=== PATIENT | male | born 1950 | race African-American/Black ===

== ENCOUNTER 2018-06-10 05:01 | Inpatient (IN) | payer MEDICARE ==
[~2018-06-10] VITALS: Ht 177.8 cm; Wt 73.7 kg
--- NOTE | ~2018-06-10 | OP ---
PATIENT NAME: JAEL CHEN MEDICAL RECORD: [id number] :46 LOCATION:D.M2 D.2103 ADMISSION DATE:06/10/18 SURGEON: JOON ASENCIO MD DATE OF OPERATION: 06/13/2018 PROCEDURES: 1. PTCA stent vein graft to the left circumflex. 2. Left heart catheterization. 3. Selective coronary angiography. 4. Vein graft angiography. 5. VARGAS angiography. INDICATION: Angina and coronary artery disease. PROCEDURE IN DETAIL: After informed consent was obtained and after a detailed description of the risks, benefits as well as alternative therapies, the patient elected to proceed with angiogram and angioplasty. The right femoral area was prepped and draped in normal sterile fashion. The right femoral artery was cannulated via modified Seldinger technique with placement of 6-Icelandic sheath. All catheters exchanged through this sheath. FINDINGS: The left ventriculogram was performed in standard 30-degree KOTHARI view, reveals good cardiac wall motion throughout all segments. Overall ejection fraction estimated 60%. SELECTIVE CORONARY ANGIOGRAPHY: 1. Left main is 98% stenosed distally. 2. The left anterior descending has a diagonal that is nongrafted as well. There is a ramus intermedius that is nongrafted. These are both affected by the left main stenosis. Left anterior descending is then totally occluded. 3. VARGAS to the LAD is widely patent. Distal LAD is diffusely diseased, but patent. 4. There is a vein graft to one obtuse marginal. This is patent; however, there is 99% stenosis in the mid shaft. 5. The right coronary artery has a 99% stenosis in the mid vessel followed by a 99% stenosis in the distal vessel. 6. Vein graft to the right coronary artery is closed. PTCA STENT OF THE VEIN GRAFT TO CIRCUMFLEX: The stent used was 3.5 x 12 mm [place]. Result was 0% residual stenosis. OVERALL IMPRESSION: Successful percutaneous transluminal coronary angioplasty stent of the vein graft to the circumflex. PLAN: PTCA stent of the left main and RCA in the near future. TRANSINT:[id number] Voice Confirmation ID: [id number] DOCUMENT ID: [id number] OPERATIVE REPORT [id number] JAEL CHEN JOON ASENCIO MD at 1713 CC: [id number] DICTATION DATE: 06/13/18 1021 HUMAN RESOURCES INTERN: 06/13/18 1156 ADM IN [facility] [address] [place] [id number]
--- NOTE | ~2018-06-10 | OP ---
PATIENT NAME: JAEL CHEN MEDICAL RECORD: [id number] :46 LOCATION:D.M2 D.2103 ADMISSION DATE:06/10/18 SURGEON: JOON ASENCIO MD DATE OF OPERATION: 06/14/2018 PROCEDURES: 1. PTCA stent to left main. 2. Selective coronary angiography. INDICATION: Angina and coronary artery disease. PROCEDURE IN DETAIL: After informed consent was obtained and after a detailed description of risks, benefits as well as alternative therapies, the patient elected to proceed with angiogram and angioplasty. The left femoral area was prepped and draped in normal sterile fashion. Left femoral artery was cannulated via modified Seldinger technique with placement of 6-Barbadian sheath. All catheters exchanged through this sheath. FINDINGS: The left main is 99% stenosed. This leads into a non-grafted circumflex and LAD diagonal. This was addressed with a 3.5 x 8 mm Dumont Imelda stent. Result was 0% residual stenosis. OVERALL IMPRESSION: Successful percutaneous transluminal coronary angioplasty stent of the left main going from 95% to 99% initial stenosis to 0% residual. TRANSINT:[id number] Voice Confirmation ID: [id number] DOCUMENT ID: [id number] JOON ASENCIO MD at 1208 CC: [id number] DICTATION DATE: 06/14/18940 HUB BORER: 06/14/18 1200 DIS IN 06/14/[address] [facility] [address] [place] [address]
--- NOTE | ~2018-06-10 | HEMODYNAMI ---
PATIENT:JAEL CHEN MEDICAL RECORD: [id number] : 46 LOCATION:[address] ADMISSION DATE: 06/10/18 Generatedon:06/14/20189:35 Patient name: JAEL CHEN Patient #: [id number] SSN: : 1950 Date of study: 06/14/2018 Page: Of Hemodynamic Procedure Report Patient Data Patient Demographics Procedure consent was obtained First Name: JAEL Gender: Male Last Name: APRIL : 1950 Patient #: [id number] Age: 67 year(s) Race: Black Additional ID: [id number] Contact details [address]: [address] [place] [address] [address] State: [place] City: [place] Zip code: [address] Past Medical History Allergies: No known allergies Admission Admission Data Admission Date: 06/10/2018 Admission Time: 6:40 Room #: 2103 Lab Results Lab Result Date: 06/14/2018 Lab Result Time: 0:00 Biochemistry Name Units Result Min Max BUN mg/dl 59 --(----)-* 7 18 Creatinine mg/dl 9.5 --(----)-* 0.6 1.3 Procedure Procedure Types Cath Procedure Diagnostic Procedure Sedation Charges PCI Procedure Coronary Stent Coronary Stent Initial Procedure Description Procedure Date Procedure Date: 06/14/2018 Procedure Start Time: 9:20 Procedure End Time: 9:33 Procedure Staff Name Function Feroz Chapman MD Performing Physician Vipul Gross RN Nurse Scarlett Day RT Scrub Ann Marie Brock RT Monitor Procedure Data Cath Procedure Fluoroscopy Diagnostic fluoroscopy Total fluoroscopy Time: 2.5 time: 2.5 min min Diagnostic fluoroscopy Total fluoroscopy dose: 489 dose: 489 mGy mGy Contrast Material Contrast Material Type Amount (ml) Isovue 300 51 Entry Location Entry Primary Successful Side Size Upsize Upsize Entry Closure Succes sful Closure Location (Fr) 1 (Fr) 2 (Fr) Remarks Device Remarks Femoral Left 6 Fr Exoseal artery Short Estimated blood loss: 5 ml Procedure Complications No complications Procedure Medications Medication Administration Route Dosage Oxygen etCO2 Nasal cannula 2 l/min Heparin Flush Bag added to field 2 bags (1000units/500ml NS) 0.9% NaCl I.V. 100 ml/hr Fentanyl I.V. 50 mcg Versed I.V. 1 mg Heparin Bolus I.V. 4000 units Fentanyl I.V. 50 mcg Versed I.V. 1 mg Hemodynamics Rest HGB: 11.1 (g/dl) Heart Rate: 84 (bpm) Snapshots Pre Cath Intra NCS Post Cath Vital Signs Time Heart Resp SPO2 etCO2 NIBP Rhythm Pain Sedation Rate (ipm) (%) (mmHg) (mmHg) Status Level (bpm) 8:49:58 85 17 98 20.2 116/71(91) NSR 0 (11) 10(A) , No pain 8:54:03 86 16 100 27 114/70(87) NSR 0 (11) 10(A) , No pain 8:58:09 82 17 100 34.5 103/71(87) NSR 0 (11) 10(A) , No pain 9:02:13 83 16 100 31.5 100/62(76) NSR 0 (11) 10(A) , No pain 9:06:17 81 16 100 32.3 104/62(75) NSR 0 (11) 10(A) , No pain 9:10:22 81 17 100 31.5 100/60(77) NSR 0 (11) 10(A) , No pain 9:14:24 80 17 100 30 100/67(83) NSR 0 (11) 10(A) , No pain 9:18:28 79 17 100 31.5 103/58(85) NSR 0 (11) 10(A) , No pain 9:22:32 76 16 100 27.7 98/63(78) NSR 0 (11) 9(A) , No pain 9:26:35 77 17 100 32.3 113/57(74) NSR 0 (11) 9(A) , No pain 9:30:45 77 16 100 26.2 101/58(75) NSR 0 (11) 9(A) , No pain Medications Time Medication Route Dose Verified Delivered Reason Notes Effectiveness by by 8:50:16 Oxygen etCO2 2 Feroz Matthew Per physician Nasal l/min Adela Gross RN cannula 8:50:41 Heparin Flush added 2 Feroz Matthew used for Bag to bags Adela Gross RN procedure (1000units/500ml field NS) 8:50:50 0.9% NaCl I.V. 100 Feroz Matthew Per physician ml/hr dAela Gross RN 9:19:10 Fentanyl I.V. 50 Feroz Matthew for sedation mcg Adela Gross RN 9:19:17 Versed I.V. 1 mg Feroz Matthew for sedation Adela Gross RN 9:22:13 Heparin Bolus I.V. 4000 Feroz Moyay for units Adela Gross RN anticoagulation 9:23:26 Fentanyl I.V. 50 Feroz Moyay for sedation mcg Adela Gross RN 9:23:29 Versed I.V. 1 mg Feroz Matthew for sedation Adela Gross RN Procedure Log Time Note 8:30:24 Bob Valencia RT(R) (CV) sent for patient. Start room use. 8:48:54 Vital chart was started 8:49:46 PCI Cath Status : Elective 8:50:16 Oxygen 2 l/min etCO2 Nasal cannula was administered by Vipul Gross RN; Per physician; 8:50:16 Procedure type changed to Cath procedure, Diagnostic procedure, Sedation Charges, PCI procedure, Coronary Stent, Coronary Stent Initial 8:50:41 Heparin Flush Bag (1000units/500ml NS) 2 bags added to field was administered by Vipul Gross RN; used for procedure; 8:50:50 0.9% NaCl 100 ml/hr I.V. was administered by Vipul Gross RN; Per physician; 8:51:39 Time tracking: Regular hours (M-F 7:00 - 5:00) 8:51:44 Plan of Care:Hemodynamics will remain stable., Cardiac rhythm will remain stable., Comfort level will be maintained., Respiratory function will remain adequate., Patient/ family verbilizes understanding of procedure., Procedure tolerated without complication., Recovers from procedure without complications.. 8:51:52 Patient received from PCU to [facility] 2 Alert and oriented. Tansferred to table in Supine position. 8:51:54 Warm blankets applied, and maya hugger turned on for patient comfort. 8:51:55 Correct patient and procedure confirmed by team. 8:51:57 Signed procedure consent form obtained from patient. 8:51:58 ECG and BP/O2 sat monitors applied to patient. 8:51:59 Baseline sample Acquired. 8:52:04 Rhythm: sinus rhythm 8:52:05 Full Disclosure recording started 8:52:36 Pre-procedure instructions explained to patient. 8:52:37 Pre-op teaching completed and patient verbalized understanding. 8:52:41 Family unavailable. 8:52:45 Patient NPO since Midnight. 8:52:58 Patient allergic to No known allergies 8:53:02 Is patient on blood thinner?Yes 8:53:14 Patient diabetic? No. 8:53:17 ----Pre-sedation anethsthesia assessment.---- 8:53:19 Previous problem with sedation/anesthesia? No ? 8:53:31 Snore? Yes 8:53:34 Sleep apnea? No 8:53:36 Deviated septum? No 8:53:37 Opens mouth fully? Yes 8:53:38 Sticks out tongue? Yes 8:53:41 Airway obstruction? No ? 8:53:52 Dentures? Yes OUT 8:54:05 Pre procedure: left dorsailis pedis pulse 1+ Palpable, but thready & weak; easily obliterated 8:54:30 IV patent on arrival in Rt subclavian with 0.9% NaCl at [facility]. 8:54:38 Left groin area was prepped with chlora-prep and draped in sterile fashion 8:54:39 Alarms reviewed by R. N. 8:54:40 Sharps counted by scrub and verified by R.N. 8:56:54 Lab Result : Creatinine 9.5 mg/dl 8:56:54 Lab Result : BUN 59 mg/dl 9:00:02 INFLATOR Merit BasixCompak ([id number]) opened to sterile field. 9:00:14 CHOICE PT Extra Support 182cm wire ([id number]) opened to sterile field. 9:00:22 SHEATH Prelude 6Fr 0.035 (AUZ-5I-50-035) opened to sterile field. 9:00:43 ACIST Syringe (98887) opened to sterile field. 9:00:44 Bag Decanter (2002S) opened to sterile field. 9:00:44 Medline Cath Pack ([id number]) opened to sterile field. 9:00:46 DIAGNOSTIC WIRE .035 260cm J wire (330333) opened to sterile field. 9:00:47 ACIST Hand Control (59390) opened to sterile field. 9:00:48 ACIST Manifold (49489) opened to sterile field. 9:00:50 Tegaderm 4 x 4 (1626W) opened to sterile field. 9:06:59 Zero performed for pressure channel P1 9:18:44 Physician arrived 9::44 --------ALL STOP TIME OUT------ ::44 Final Timeout: patient, procedure, and site verified with staff and physician. All members of the team are in agreement. 9:18:48 Right groin site verified by team. 9::52 Physical assessment completed. ASA score P 2 - A patient with mild systemic disease as per Feroz Chapman MD. 9:18:56 Sedation plan: IV Moderate Sedation Medication:Versed, Fentanyl 9:19:00 Procedure started. 9:19:10 Fentanyl 50 mcg I.V. was administered by Vipul Gross RN; for sedation; 9:19:17 Versed 1 mg I.V. was administered by Vipul Gross RN; for sedation; 9:20:43 Local anesthetic to left femerol artery with Lidocaine 2% by Feroz Chapman MD.INITIAL ACCESS ONLY 9:21:00 A 6 Fr Short sheath was inserted into the Left Femoral artery 9:21:40 GUIDE 6FR EBU 3.5 SH catheter ([id number]) opened to sterile field. 9::52 6 Fr EBU 3.5 SH guide catheter was inserted over the wire 9:22:13 Heparin Bolus 4000 units I.V. was administered by Vipul Gross RN; for anticoagulation; 9::52 ER XT J 300cm guide wire ([id number]) opened to sterile field. 9:23:26 Fentanyl 50 mcg I.V. was administered by Vipul Gross RN; for sedation; 9:23:29 Versed 1 mg I.V. was administered by Vipul Gross RN; for sedation; 9:24:11 er wire advanced. 9:24:14 Wire advanced across lesion. 9:25:33 Inflate balloon Inflation number: 1 A EUPHORA 2.0 x 12 Balloon ([id number]) was prepped and advanced across the LMCA, then inflated to 21 KINA for 0:10 (min:sec). 9:25:56 Inflation number: 2 The EUPHORA 2.0 x 12 Balloon ([id number]) was reinflated across the LMCA, to 21 KINA for 0:00 (min:sec). 9:26:17 Balloon removed over the wire. 9:28:11 Place stent Inflation Number: 3 A KENROY RX 3.5 x 08 stent ([id number]) was prepped and advanced across the LMCA. The stent was deployed at 13 KINA for 0:10 (min:sec). 9:28:28 Inflation number: 4 The stent balloon was then re-inflated across the LMCA to 17 KINA for 0:10 (min:sec). 9:28:44 Stent catheter was removed intact over wire. 9:28:44 Wire removed. 9:28:45 Guide catheter removed. 9:29:04 EXOSEAL 6Fr (EX600) opened to sterile field. 9:29:16 Sheath removed intact; hemostasis achieved with Exoseal to the Left Femoral artery. 9:29:17 Procedure ended.(Physican Out) 9:31:23 Fluoroscopy time 02.50 minutes. 9:31:27 Fluoroscopy dose: 489 mGy 9:31:27 Flurop Dose total: 489 9:31:38 Contrast amount:Isovue 300 51ml. 9:31:40 Sharps counted by scrub and verified by R.N. 9:32:07 Insertion/operative site no bleeding no hematoma. 9:32:42 Post-op/insertion site Left Femoral artery dressed using a 4 x 4 and Tegaderm. 9:32:46 Post left femerol artery:stable 9:32:47 Post Procedure Pulses reassessed and unchanged 9:32:50 Post procedure rhythm: unchanged. 9:32:52 Estimated blood loss: 5 ml 9:32:54 Post procedure instruction explained to patient.Patient verbalizes understanding. 9:32:54 Patient needs reinforcement of post procedure teaching. 9:32:55 Procedure and supply charges have been captured, reviewed, submitted and are correct. 9:33:02 Procedure Complication : No complications 9:33:04 Vital chart was stopped 9:33:05 See physician's report for complete and final results. 9:33:14 Report given to [facility]. 9:33:17 Patient transfered to [facility] with Stretcher. 9:33:18 Procedure ended. 9:33:18 Full Disclosure recording stopped 9:33:27 ACC-PCI Only Patient was given prescriptions, or instructed by Feroz Chapman MD to start/continue the following medications upon discharge: Plavix 9:33:28 End room use (Document Last) Intervention Summary Intervention Notes Time ActionType Lesion and Equipment Action# Pressure Duration Attributes Used 9:25:33 Inflate LMCA EUPHORA 2.0 1 21 00:10 balloon x 12 Balloon ([id number]) 9:25:56 Reinflate LMCA EUPHORA 2.0 2 21 00:00 balloon x 12 Balloon ([id number]) 9:28:11 Place stent LMCA KENROY RX 3 13 00:10 3.5 x 08 stent ([id number]) 9:28:28 Reinflate LMCA KENROY RX 4 17 00:10 stent 3.5 x 08 balloon stent ([id number]) Device Usage Item Name Manufacture Quantity Catalog Number Hospital Part Current Minimal Lot# / Charge Number Stock Stock Serial# Code INFLATOR Merit Merit 1 [id number] 15 [facility] Center[facility] Medical ([id number]) CHOICE PT Extra Holt 1 [id number] 233892 536686 740268 5 Support 182cm Scientific wire ([id number]) SHEATH Prelude Merit 1 [id number] 155568 5149297 002428 5 6Fr 0.035 Medical (FDA-1F-[id number]) ACIST Syringe Acist 1 09704 754928 656348 599547 20 (05913) [employer] Systems Inc Bag Decanter Microtek 1 2001S 505611 49715 923212 5 () Medical Inc. Medline Cath Cardinal 1 [id number] 827346 87936 577149 5 [facility] ([id number]) DIAGNOSTIC WIRE St Hema 1 036508 285333 984773 846427 30 .035 260cm J wire (458881) ACIST Hand Acist 1 19711 839610 729720 935812 5 Control (41767) Medical [employer] Inc ACIST Manifold Acist 1 23477 487899 469654 869314 5 (05144) Medical Systems Inc Tegaderm 4 x 4 3M 1 1626W 036072 369517 022133 5 (1626W) GUIDE 6FR EBU Medtronic 1 [id number] 591035 70175 530643 1 3.5 SH catheter ([id number]) FIELDER XT J Dumont 1 [id number] 896922 328881 624860 5 300cm guide Vascular wire ([id number]) EUPHORA 2.0 x Medtronic 1 [id number] 605886 574850 996705 5 [id number] 12 Balloon ([id number]) KENROY RX 3.5 x Dumont 1 [id number] 051812 1420397 288628 5 [id number] 08 stent Vascular ([id number]) EXOSEAL 6Fr Cardinal 1 EX600 215791 849777 074498 10 (EX600) Health Signature Audit [place] Stage Time Signature Unsigned Intra-Procedure 06/14/2018 Ann Marie Brock 9:34:55 AM RT(R) Signatures Monitor : Ann Marie Brock RT Signature : Date : Time : [address] [address]
--- NOTE | ~2018-06-10 | OP ---
PATIENT NAME: JAEL CHEN MEDICAL RECORD: [id number] :46 LOCATION:D.M2 D.2103 ADMISSION DATE:06/10/18 SURGEON: JOON ASENCIO MD DATE OF OPERATION: 06/13/2018 PROCEDURES: 1. Aortofemoral runoff. 2. Abdominal aortography. INDICATION: Claudication and peripheral vascular disease. PROCEDURE PERFORMED: After informed consent was obtained and after a detailed description of risks, benefits as well as alternative therapies, the patient elected to proceed with angiogram and angioplasty. The right femoral area had a preexisting sheath from cardiac catheterization. FINDINGS: Abdominal aortography was performed. The catheter was pulled down for aortofemoral runoff. Abdominal aortography reveals no significant abdominal aortic disease, no dissection or aneurysm formation. RIGHT LEG: A. Iliac: The common internal and external iliacs have moderate irregularities, but no flow-limiting stenosis. B. Femoral system: The common and deep femoral are widely patent. Superficial femoral has multiple areas of 80+ percent stenosis. C. Popliteal and infrapopliteal vessels: The popliteal is patent. The posterior tibial and peroneal are totally occluded. The anterior tibial is the only patent vessel giving runoff to the foot. LEFT LEG: A. Iliac: The common internal and external iliacs have moderate irregularities, but no flow-limiting stenosis. B. Femoral system: The common and deep femoral are patent. Superficial femoral has moderate to severe diffuse disease. It is then occluded at 2 places. One is in the mid distal vessel, approximately 40 mm, second one is after this, just before the popliteal. This is approximately a 20 mm total occlusion. These are heavily calcified, fills via collaterals from the deep system as well as bridging collaterals around the total occlusion. C. Popliteal and infrapopliteal vessels: The popliteal does appear to be patent for the initial course and then appears to be totally occluded behind the knee. No infrapopliteal vessels can be seen. OVERALL IMPRESSION: Severe disease of infrapopliteal bilaterally, severe disease of the SFA bilaterally. TRANSINT:[id number] Voice Confirmation ID: [id number] DOCUMENT ID: [id number] OPERATIVE REPORT [id number] JAEL CHEN JEFFREY MD at 4453 CC: [id number] DICTATION DATE: 06/13/18 1023 SSN/SSBN [employer] EQUIPMENT OPERATOR: 06/13/18 1159 ADM IN [facility] [address] [place] [id number]
--- NOTE | ~2018-06-10 | HEMODYNAMI ---
PATIENT:JAEL CHEN MEDICAL RECORD: [id number] : 46 LOCATION:[address] [id number] ADMISSION DATE: 06/10/18 Generatedon:06/13/201810:27 Patient name: JAEL CHEN Patient #: [id number] SSN: : 1950 Date of study: 06/13/2018 Page: Of Hemodynamic Procedure Report Patient Data Patient Demographics Procedure consent was obtained First Name: JAEL Gender: Male Last Name: APRIL : 1950 Patient #: [id number] Age: 67 year(s) Race: Black Additional ID: [id number] Contact details Address: [address] [place] [address] [address] State: [place] City: [place] Zip code: [address] Past Medical History Allergies: No known allergies Admission Admission Data Admission Date: 06/10/2018 Admission Time: 6:40 Room #: D2103 Lab Results Lab Result Date: 06/10/2018 Lab Result Time: 8:36 Biochemistry Name Units Result Min Max BUN mg/dl 72 --(----)-* 7 18 Creatinine mg/dl 11 --(----)-* 0.6 1.3 CBC Name Units Result Min Max Hematocrit % 34.8 *-(----)-- 42 54 Hemoglobin g/dl 11.1 *-(----)-- 13.5 17.5 Procedure Procedure Types Cath Procedure Diagnostic Procedure LHC LHC w/Coronaries w/Grafts Sedation Charges Moderate Sedation up to 15 minutes PCI Procedure AMI/SVG/JAVA GRAILS DEVELOPER PTCA or Stent SVG-BMS/ANNALEE Additional Peripheral Cath Diagnostic Procedure Cath Peripheral Hzdxu-Yuplnna-Dvl-Off Procedure Description Procedure Date Procedure Date: 06/13/2018 Procedure Start Time: 9:55 Procedure End Time: 10:23 Procedure Staff Name Function Feroz Chapman MD Performing Physician Scarlett Day RT Pigment Mixer Rc Valentin RT Monitor Kayy Sarmiento RN Nurse Scarlett Shay RT Scrub Procedure Data Cath Procedure Fluoroscopy Diagnostic fluoroscopy Total fluoroscopy Time: 7.7 time: 7.7 min min Diagnostic fluoroscopy Total fluoroscopy dose: dose: 1089 mGy 1089 mGy Contrast Material Contrast Material Type Amount (ml) Isovue 300 198 Entry Location Entry Primary Successful Side Size Upsize Upsize Entry Closure Succes sful Closure Location (Fr) 1 (Fr) 2 (Fr) Remarks Device Remarks Femoral Right 5 Fr 6 Fr Exoseal artery Short Estimated blood loss: 10 ml Diagnostic catheters Device Type Used For End Catheter Placement MULTIPACK Pigtail 5 Fr Procedure catheter MULTIPACK JL 4.0 5Fr Procedure catheter DIAGNOSTIC JL 5 5Fr Procedure catheter ([id number]) MULTIPACK 3DRC 5Fr Procedure catheter Procedure Complications No complications Procedure Medications Medication Administration Route Dosage Oxygen etCO2 Nasal cannula 2 l/min Lidocaine 2% added to field 20 Heparin Flush Bag added to field 2 bags (1000units/500ml NS) 0.9% NaCl I.V. 50 ml/hr Versed I.V. 1 mg Fentanyl I.V. 50 mcg Versed I.V. 1 mg Fentanyl I.V. 50 mcg Heparin Bolus I.V. 4000 units Integrilin (Bolus I.V. 6.8 ml 2mg/ml) Fentanyl I.V. 50 mcg Cardene I.C. 300 mcg Plavix P.O. 600 mg Hemodynamics Rest HGB: 11.1 (g/dl) Heart Rate: 87 (bpm) Pressure Samples Time Site Value (mmHg) Purpose Heart Use Rate(bpm) 9:58 LV 78/2,3 Snapshot 101 Snapshots Pre Cath Intra NCS Post Cath Vital Signs Time Heart Resp SPO2 etCO2 NIBP (mmHg) Rhythm Pain Sedation Rate (ipm) (%) (mmHg) Status Level (bpm) 9:49:22 84 19 100 26.3 136/81(109) NSR 0 (11) 10(A) , No pain 9:53:38 82 17 100 24.8 133/68(88) NSR 0 (11) 10(A) , No pain 9:57:52 82 10 99 16.5 118/74(92) NSR 0 (11) 9(A) , No pain 10:01:58 86 14 100 33.1 120/78(98) NSR 0 (11) 9(A) , No pain 10:06:10 86 16 100 30.1 122/64(97) NSR 0 (11) 9(A) , No pain 10:10:13 90 13 100 30.8 141/92(110) NSR 0 (11) 9(A) , No pain 10:14:23 98 14 100 30.8 151/95(122) NSR 0 (11) 9(A) , No pain 10:18:33 97 11 100 27.1 133/85(104) NSR 0 (11) 9(A) , No pain 10:22:43 100 12 100 30.1 145/91(120) NSR 0 (11) 10(A) , No pain Medications Time Medication Route Dose Verified Delivered Reason Notes Effectiveness by by 9:49:34 Oxygen etCO2 2 Feroz Josephie used for Nasal l/min Adela Sarmiento RN procedure cannula 9:49:40 Lidocaine 2% added 20ml Feroz Redman for local to vial Adela Chapman MD anesthetic field 9:49:46 Heparin Flush added 2 Feroz Feroz used for Bag to bags Adela Chapman MD procedure (1000units/500ml field NS) 9:49:55 0.9% NaCl I.V. 50 Feroz Buffie Per physician ml/hr Adela Sarmiento RN 9:54:42 Versed I.V. 1 mg Feroz Josephie for sedation Adela Sarmiento RN 9:54:47 Fentanyl I.V. 50 Feroz Buffie for sedation mcg Adela Sarmiento RN 9:59:32 Versed I.V. 1 mg Feroz Josephie for sedation Adela Sarmiento RN 9:59:36 Fentanyl I.V. 50 Feroz Josephie for sedation mcg Adela Sarmiento RN 10:07:26 Heparin Bolus I.V. 4000 Feroz Josephie for verif ied units Adela Sarmiento RN anticoagulation with dr chapman 10:10:02 Integrilin I.V. 6.8 Feroz Sultana for Waste d (Bolus 2mg/ml) ml Adela Sarmiento RN antiplatelet 3.2 ml therapy of vial 10:14:14 Fentanyl I.V. 50 Feroz Josephie for sedation baldev Sarmiento RN 10:15:18 Cardene I.C. 300 Feroz Redman used for mcg Adela Chapman MD procedure 10:24:22 Plavix P.O. 600 Feroz Sultana for mg Adela Sarmiento RN antiplatelet therapy Procedure Log Time Note 9:26:51 Kayy Sarmiento RN sent for patient. Start room use. 9:41:27 Diagnostic Cath status Elective 9:41:28 Time tracking: Regular hours (M-F 7:00 - 5:00) 9:41:32 Plan of Care:Hemodynamics will remain stable., Cardiac rhythm will remain stable., Comfort level will be maintained., Respiratory function will remain adequate., Patient/ family verbilizes understanding of procedure., Procedure tolerated without complication., Recovers from procedure without complications.. 9:41:38 Patient received from PCU to CCL 2 Alert and oriented. Tansferred to table in Supine position. 9:41:39 Warm blankets applied, and maya hugger turned on for patient comfort. 9:41:39 Correct patient and procedure confirmed by team. 9:41:40 Signed procedure consent form obtained from patient. 9:41:41 ECG and BP/O2 sat monitors applied to patient. 9:41:42 Pre-procedure instructions explained to patient. 9:41:43 Pre-op teaching completed and patient verbalized understanding. 9:41:44 Family unavailable. 9:48:17 Vital chart was started 9:48:18 Baseline sample Acquired. 9:48:21 Rhythm: sinus rhythm 9:48:23 Full Disclosure recording started 9:48:59 H&P Date Dictated: 06/10/2018 Within 30 days and on chart.. 9:49:34 Oxygen 2 l/min etCO2 Nasal cannula was administered by Kayy Sarmiento RN; used for procedure; 9:49:40 Lidocaine 2% 20ml vial added to field was administered by Feroz Chapman MD; for local anesthetic; 9:49:46 Heparin Flush Bag (1000units/500ml NS) 2 bags added to field was administered by Feroz Chapman MD; used for procedure; 9:49:51 Patient allergic to No known allergies 9:49:53 Is the patient allergic to Iodine/contrast media? No. 9:49:54 Is patient on blood thinner?No 9:49:55 0.9% NaCl 50 ml/hr I.V. was administered by Kayy Sarmiento RN; Per physician; 9:50:46 Patient diabetic? No. 9:50:48 Snore? Yes 9:50:50 Previous problem with sedation/anesthesia? No ? 9:50:52 Sleep apnea? No 9:50:52 Deviated septum? No 9:51:01 Opens mouth fully? Yes 9:51:02 Sticks out tongue? Yes 9:51:07 Airway obstruction? No ? 9:51:12 Dentures? No ? 9:51:15 Pre procedure: right dorsailis pedis pulse 2+ Normal; easily identifiable; not easily obliterated 9:51:27 Patient pain scale 2/10 chest pressure. 9:51:32 IV patent on arrival in right antecubital with 0.9% NaCl at [facility]. 9:52:21 Lab Result : BUN 72 mg/dl 9:52:22 Lab Result : Creatinine 11 mg/dl 9:52:22 Lab Result : Hemoglobin 11.1 g/dl 9:52:22 Lab Result : Hematocrit 34.8 % 9:52:25 Lab results completed and on chart. 9:52:28 Right groin area was prepped with chlora-prep and draped in sterile fashion 9:52:28 Alarms reviewed by R. N. 9:52:29 Sharps counted by scrub and verified by R.N. 9:52:31 Use device set Femoral Dx 9:52:32 ACIST Syringe (64230) opened to sterile field. 9:52:32 Bag Decanter (2002S) opened to sterile field. 9:52:32 Medline Cath Pack ([id number]) opened to sterile field. 9:52:34 ACIST Hand Control (12524) opened to sterile field. 9:52:34 ACIST Manifold (16116) opened to sterile field. 9:52:35 Tegaderm 4 x 4 (1626W) opened to sterile field. 9:52:37 SHEATH Prelude 5Fr 0.035 (WFF-3X-13-035) opened to sterile field. 9:52:38 DIAGNOSTIC Multipack 5Fr catheter set (SK1275) opened to sterile field. 9:52:39 DIAGNOSTIC WIRE .035 260cm J wire (453434) opened to sterile field. 9:52:45 Physician arrived 9:52:45 --------ALL STOP TIME OUT------ 9:52:45 Final Timeout: patient, procedure, and site verified with staff and physician. All members of the team are in agreement. 9:52:47 Right groin site verified by team. 9:52:49 Physical assessment completed. ASA score P 3 - A patient with severe systemic disease as per Feroz Chapman MD. 9:52:51 Sedation plan: IV Moderate Sedation Medication:Versed, Fentanyl 9:54:42 Versed 1 mg I.V. was administered by Kayy Sarmiento RN; for sedation; 9:54:47 Fentanyl 50 mcg I.V. was administered by Kayy Sarmiento RN; for sedation; 9:54:50 Zero performed for pressure channel P1 9:54:57 Zero performed for pressure channel P1 9:55:11 Zero performed for pressure channel P1 9:55:34 Procedure started. 9:55:38 Local anesthetic to right femoral artery with Lidocaine 2% by Feroz Chapman MD.INITIAL ACCESS ONLY 9:57:13 A 5 Fr sheath was inserted into the Right Femoral artery 9:57:21 A MULTIPACK Pigtail 5 Fr catheter was advanced over the wire and used for Procedure. 9:58:53 LV gram done using KOTHARI 9:58:56 Injector settings: Ml/sec: 10, Volume: 20, 9:59:02 EF : 60 % 9:59:03 LV hemodynamics recorded. 9:59:32 Versed 1 mg I.V. was administered by Kayy Sarmiento RN; for sedation; 9:59:32 Abdominal angiogram w/ runoff was performed. 9:59:36 Fentanyl 50 mcg I.V. was administered by Kayy Sarmiento RN; for sedation; 9:59:44 Left leg runoff performed. 9:59:45 Right leg runoff performed. 10:00:26 Catheter exchanged over wire. 10:00:32 A MULTIPACK JL 4.0 5Fr catheter was advanced over the wire and used for Procedure. 10:01:12 Catheter removed. unable to cannulate vessel. 10:01:23 A DIAGNOSTIC JL 5 5Fr catheter ([id number]) was advanced over the wire and used for Procedure. 10:03:43 LCA angiography performed. 10:03:46 Catheter exchanged over wire. 10:03:51 A MULTIPACK 3DRC 5Fr catheter was advanced over the wire and used for Procedure. 10:03:54 VARGAS to LAD angiography performed. 10:04:27 RCA angiography performed. 10:05:23 SVG to Circ angiography performed. 10:05:39 GUIDE 6FR AR 2.0 catheter ([id number]) opened to sterile field. 10:05:46 Catheter removed. 10:05:52 SHEATH 6FR [place] (YMC786) opened to sterile field. 10:06:04 CHOICE PT Extra Support 182cm wire ([id number]) opened to sterile field. 10:06:04 INFLATOR Merit BasixCompak (OU9775) opened to sterile field. 10:06:40 Sheath upsized to a 6 Fr Short. 10:06:48 6 Fr AR 2 guide catheter was inserted over the wire 10:07:26 Heparin Bolus 4000 units I.V. was administered by Kayy Sarmiento RN; for anticoagulation; verified with dr chapman 10:10:02 Integrilin (Bolus 2mg/ml) 6.8 ml I.V. was administered by Kayy Sarmiento RN; for antiplatelet therapy; Wasted 3.2 ml of vial 10:10:12 Procedure type changed to Cath procedure, Diagnostic procedure, LHC, LHC w/Coronaries w/Grafts, Sedation Charges, Moderate Sedation up to 15 minutes, PCI procedure, AMI/SVG/JAVA GRAILS DEVELOPER PTCA or Stent, SVG-BMS/ANNALEE Additional, Peripheral Cath Diagnostic Procedure, Cath Peripheral, Uxbus-Ygkzysi-Cwf-Off 10:10:37 GUIDE 6FR AR 1.0 catheter (QU0TU35) opened to sterile field. 10:10:46 Guide Catheter removed. unable to cannulate vessel. 10:10:51 6 Fr AR 1 guide catheter was inserted over the wire 10:11:52 CHOICE PT ES wire advanced. 10:13:59 Wire removed. 10:14:01 Guide Catheter removed. unable to cannulate vessel. 10:14:08 GUIDE 6FR LCB catheter (LA6LCB) opened to sterile field. 10:14:14 Fentanyl 50 mcg I.V. was administered by Kayy Sarmiento RN; for sedation; 10:14:17 6 Fr LCB guide catheter was inserted over the wire 10:14:36 CHOICE PT ES wire advanced. 10:14:58 Wire advanced across lesion. 10:15:18 Cardene 300 mcg I.C. was administered by Feroz Chapman MD; used for procedure; 10:16:20 Place stent Inflation Number: 1 A REGAN RX 3.5 x 12 stent ([id number]) was prepped and advanced across the Aorta Left -> Mid CX. The stent was deployed at 15 KINA for 0:10 (min:sec). 10:18:31 Stent catheter was removed intact over wire. 10:18:32 Wire removed. 10:18:32 Guide catheter removed. 10:18:43 EXOSEAL 6Fr (EX600) opened to sterile field. 10:18:50 Sheath removed intact; hemostasis achieved with Exoseal to the Right Femoral artery. 10:18:52 Procedure ended.(Physican Out) 10:19:01 Fluoroscopy time 07.70 minutes. 10:19:05 Fluoroscopy dose: 1089 mGy 10:19:05 Flurop Dose total: 1089 10:19:15 Contrast amount:Isovue 300 198ml. 10:20:53 Insertion/operative site no bleeding no hematoma. 10:20:56 Post-op/insertion site Right Femoral artery dressed using a 4 x 4 and Tegaderm. 10:20:59 Post right femoral artery:stable, soft, clean and dry 10:21:00 Post Procedure Pulses reassessed and unchanged 10:21:04 Post-procedure physical assessment completed. ASA score P 3 - A patient with severe systemic disease as per Feroz Chapman MD. 10:21:06 Post procedure rhythm: unchanged. 10:21:08 Estimated blood loss: 10 ml 10:21:09 Post procedure instruction explained to patient.Patient verbalizes understanding. 10:21:58 FEMSTOP Gold (J22867) opened to sterile field. 10:22:06 Femstop placed over the right femoral artery at 165 mmHg. Hemostasis achieved. 10:23:14 Procedure and supply charges have been captured, reviewed, submitted and are correct. 10:23:16 Procedure Complication : No complications 10:23:18 Vital chart was stopped 10:23:18 See physician's report for complete and final results. 10:23:20 Report given to PCU. 10:23:23 Patient transfered to PCU with Stretcher. 10:23:25 Procedure ended. 10:23:25 Full Disclosure recording stopped 10:23:29 End room use (Document Last) 10:24:22 Plavix 600 mg P.O. was administered by Kayy Sarmiento RN; for antiplatelet therapy; Intervention Summary Intervention Notes Time ActionType Lesion and Equipment Used Action# Pressure Duration Attributes 10:16:20 Place stent Aorta Left REGAN RX 3.5 x 1 15 00:10 -> Mid CX 12 stent ([id number]) Device Usage Item Name Manufacture Quantity Catalog Number Hospital Part Current Minimal Lot# / Charge Number Stock Stock Serial# Code ACIST Syringe Acist 1 83060 504775 684165 [id number] 20 (39413) Medical Systems Ambature Bag Decanter Microtek 1 2001S 416417 16391 576168 5 (2001S) Medical Inc. Medline Cath Cardinal 1 [id number] 346514 38910 481554 5 Pack Health ([id number]) ACIST Hand Acist 1 10690 824375 351365 487333 5 Control (15228) Medical Systems Ambature ACIST Manifold Acist 1 90918 110912 411909 503335 5 (82092) Medical Systems Ambature Tegaderm 4 x 4 3M 1 1626W 656947 376935 763983 5 (1626W) SHEATH Prelude Merit 1 TDH-1X-79-035 374724 841579 372432 5 5Fr 0.035 Medical (LEM-1Q-62-035) DIAGNOSTIC Cardinal 1 JS9045 963110 50803 171678 30 Multipack 5Fr Health catheter set (WB3520) DIAGNOSTIC WIRE St Hema 1 229208 049433 092012 638905 30 .035 260cm J wire (728452) MULTIPACK Cardinal 1 668812 5 Pigtail 5 Fr Health catheter MULTIPACK JL Cardinal 1 488548 5 4.0 5Fr Health catheter DIAGNOSTIC JL 5 Cardinal 1 [id number] 186838 897950 009851 5 5Fr catheter Health (030749D) MULTIPACK 3DRC Cardinal 1 866749 5 5Fr catheter Health GUIDE 6FR AR Medtronic 1 [id number] 392685 48128 393614 1 2.0 catheter (QS6AV28) SHEATH 6FR Terumo 1 AZU930 046762 451778 785323 40 [place] (ECY258) CHOICE PT Extra [place] 1 [id number] 287469 115482 941179 5 Support 182cm Scientific wire (6850084N7) INFLATOR Merit Merit 1 JB4990 397509 757496 138257 15 [employer] Medical (BS2211) GUIDE 6FR AR Medtronic 1 BP9AY58 414203 60851 128816 1 1.0 catheter (YI4YI27) GUIDE 6FR LCB Medtronic 1 LA6LCB 285599 54283 351342 1 catheter (LA6LCB) REGAN RX 3.5 x Medtronic 1 [id number] 867958 1949867 820632 5 [id number] 12 stent ([id number]) EXOSEAL 6Fr Cardinal 1 EX600 575682 815775 549131 10 (EX600) [facility] St Hema 1 B14859 145324 203973 089218 5 (Z33071) Signature Audit [place] Stage Time Signature Unsigned Intra-Procedure 06/13/2018 Rc Valentin 10:27:01 AM RT(R) Signatures Monitor : Rc Valentin RT Signature : Date : Time : [address] [place] [address]
[2018-06-10] MEDS ORDERED: PROTONIX40 MG PO (07:43)
[2018-06-10] MEDS ORDERED: ZYLOPRIM100 MG PO (07:44)
[2018-06-10] MEDS ORDERED: LIPITOR40 MG PO (07:45)
[2018-06-10] MEDS ORDERED: RENVELA800 MG PO (07:47)
[2018-06-10] MEDS ORDERED: HYDRALAZINE HCL25 MG PO (07:48)
[2018-06-10] MEDS ORDERED: NORCO 7.5/325 T1 TA1 PO (07:49)
[2018-06-10] MEDS ORDERED: FOLIC ACID1 MG PO (07:50)
[2018-06-10] MEDS ORDERED: NORVASC2.5 MG PO (07:53)
[2018-06-10] MEDS ORDERED: LOTENSIN5 MG PO (07:53)
[2018-06-10] MEDS ORDERED: ISOSORBIDE DINI30 MG PO (07:54)
[2018-06-10] MEDS ORDERED: LOPRESSOR25 MG PO (07:55)
[2018-06-10 08:50] LABS: BASOPHILS 0.4 % (0-2); EOSINOPHILS 2.2 % (0-7); HEMATOCRIT 34.8 % (42.0-54.0); HEMOGLOBIN 11.1 g/dL (13.5-17.5); IMMATURE GRANULOCYTES 0.7 % (0-5); LYMPHOCYTES 24.3 % (15-50); MCH 29.5 pg (26.0-34.0); MCHC 31.9 g/dL (31.0-37.0); MCV 92.6 fL (80.0-100.0); MEAN PLATELET VOLUME 11.2 fL (7.4-10.4); MONOCYTES 10.2 % (2-11); NEUTROPHILS 62.2 % (40-80); PLATELET COUNT 102 10x3/uL (130-400); RBC 3.76 10x6/uL (4.20-6.10); RDW 16.4 % (11.5-14.5); WBC 5.4 10x3/uL (4.8-10.8)
[2018-06-10 09:15] LABS: ALBUMIN 3.2 g/dL (3.4-5.0); ALKALINE PHOSPHATASE 89 U/L (46-116); ALT (SGPT) 33 U/L (10-68); BILIRUBIN - TOTAL 0.36 mg/dL (0.2-1.3); CALC OSMOLALITY 295 mosm/kg (275-300); CALCIUM 8.3 mg/dL (8.5-10.1); CARBON DIOXIDE 27.6 mmol/L (21.0-32.0); CHLORIDE - SERUM 100 mmol/L (98-107); CHOL - HDL RATIO 2.2 ratio (2.3-4.9); CHOLESTEROL, TOTAL 130 mg/dL (0-200); CKMB 1.1 U/L (0.0-3.6); CREATINE KINASE 53 UL (21-232); GLUCOSE 75 mg/dL (74-106); HDL CHOLESTEROL 58 mg/dL (32-96); INR 1.19 (0.85-1.17); LDL CHOLESTEROL 64 mg/dL (0-100); LDL-HDL RATIO 1.1 ratio (1.5-3.5); MAGNESIUM - SERUM 1.8 mg/dL (1.8-2.4); POTASSIUM - SERUM 5.7 mmol/L (3.5-5.1); PRO BNP 4040 pg/mL (0-125); PROTEIN - SERUM 6.9 g/dL (6.4-8.2); PROTIME 14.7 SECONDS (11.6-15.0); SODIUM 138 mmol/L (136-145); TRIGLYCERIDE 40 mg/dL (30-200); UREA NITROGEN 72 mg/dL (7-18); eGFR NON AFRICAN AMERICAN 5 mL/min (90-120)
[2018-06-10 09:21] LABS: TROPONIN-I 0.069 ng/mL (0.000-0.060)
[2018-06-10 09:39] VITALS: BP 176/92
[2018-06-10 13:11] VITALS: BP 166/84; BMI 22.5
[2018-06-10 14:06] VITALS: Ht 177.8 cm; Wt 73.7 kg
[2018-06-10 15:45] VITALS: BP 118/68
[2018-06-10 16:10] LABS: CREATINE KINASE 52 UL (21-232); TROPONIN-I 0.051 ng/mL (0.000-0.060)
[2018-06-10 20:14] LABS: CREATINE KINASE 41 UL (21-232); TROPONIN-I 0.035 ng/mL (0.000-0.060)
[2018-06-10 20:32] VITALS: BP 126/58
[2018-06-11 00:19] VITALS: BP 111/60
[2018-06-11 04:44] VITALS: BP 116/58
[2018-06-11 05:58] LABS: BASOPHILS 0.2 % (0-2); EOSINOPHILS 2.8 % (0-7); HEMATOCRIT 28.9 % (42.0-54.0); HEMOGLOBIN 9.2 g/dL (13.5-17.5); IMMATURE GRANULOCYTES 0.4 % (0-5); LYMPHOCYTES 25.3 % (15-50); MCHC 31.8 g/dL (31.0-37.0); MCV 91.2 fL (80.0-100.0); MONOCYTES 12.3 % (2-11); PLATELET COUNT 101 10x3/uL (130-400); RBC 3.17 10x6/uL (4.20-6.10); RDW 16.5 % (11.5-14.5); WBC 5.4 10x3/uL (4.8-10.8)
[2018-06-11 06:24] LABS: ANION GAP 14.4 mmol/L (8-16); CALCIUM 7.9 mg/dL (8.5-10.1); CARBON DIOXIDE 27.7 mmol/L (21.0-32.0); CREATININE - SERUM 9.5 mg/dL (0.6-1.3); POTASSIUM - SERUM 5.1 mmol/L (3.5-5.1)
[2018-06-11 08:30] VITALS: BP 122/75
[2018-06-11 11:36] VITALS: BP 112/60
[2018-06-11 15:26] VITALS: BP 85/44
[2018-06-11 20:57] VITALS: BP 91/45
[2018-06-12 02:09] VITALS: BP 95/49
[2018-06-12 04:55] LABS: BASOPHILS 0.2 % (0-2); EOSINOPHILS 2.2 % (0-7); HEMATOCRIT 27.9 % (42.0-54.0); HEMOGLOBIN 8.9 g/dL (13.5-17.5); IMMATURE GRANULOCYTES 0.4 % (0-5); LYMPHOCYTES 19.2 % (15-50); MCH 28.9 pg (26.0-34.0); MCHC 31.9 g/dL (31.0-37.0); MCV 90.6 fL (80.0-100.0); MEAN PLATELET VOLUME 11.5 fL (7.4-10.4); MONOCYTES 14.9 % (2-11); NEUTROPHILS 63.1 % (40-80); PLATELET COUNT 114 10x3/uL (130-400); RBC 3.08 10x6/uL (4.20-6.10); RDW 16.7 % (11.5-14.5); WBC 5.1 10x3/uL (4.8-10.8)
[2018-06-12 05:00] LABS: ANION GAP 16.3 mmol/L (8-16); CALCIUM 7.6 mg/dL (8.5-10.1); CARBON DIOXIDE 26.1 mmol/L (21.0-32.0); CREATININE - SERUM 11.5 mg/dL (0.6-1.3); POTASSIUM - SERUM 5.4 mmol/L (3.5-5.1)
[2018-06-12 06:26] VITALS: BP 97/53
[2018-06-12 08:23] VITALS: BP 104/57
[2018-06-12 11:41] VITALS: BP 99/57
[2018-06-12 16:11] VITALS: BP 139/69
[2018-06-12 21:07] VITALS: BP 94/56
[2018-06-13 01:16] VITALS: BP 103/59
[2018-06-13 05:10] VITALS: BP 118/65
[2018-06-13 05:37] LABS: BASOPHILS 0.2 % (0-2); EOSINOPHILS 1.6 % (0-7); HEMATOCRIT 26.8 % (42.0-54.0); HEMOGLOBIN 8.6 g/dL (13.5-17.5); IMMATURE GRANULOCYTES 0.4 % (0-5); LYMPHOCYTES 26.2 % (15-50); MCH 28.8 pg (26.0-34.0); MCHC 32.1 g/dL (31.0-37.0); MCV 89.6 fL (80.0-100.0); MEAN PLATELET VOLUME 12.1 fL (7.4-10.4); MONOCYTES 14.8 % (2-11); NEUTROPHILS 56.8 % (40-80); PLATELET COUNT 110 10x3/uL (130-400); RBC 2.99 10x6/uL (4.20-6.10); RDW 16.7 % (11.5-14.5); WBC 5.2 10x3/uL (4.8-10.8)
[2018-06-13 06:03] LABS: ANION GAP 17.3 mmol/L (8-16); CALCIUM 7.6 mg/dL (8.5-10.1); CARBON DIOXIDE 26.2 mmol/L (21.0-32.0); CREATININE - SERUM 13.5 mg/dL (0.6-1.3); POTASSIUM - SERUM 5.5 mmol/L (3.5-5.1)
[2018-06-13 12:00] VITALS: BP 128/74
[2018-06-14 04:00] VITALS: BP 100/54
[2018-06-14 06:04] LABS: BASOPHILS 0 % (0-2); EOSINOPHILS 1.5 % (0-7); HEMATOCRIT 27.1 % (42.0-54.0); HEMOGLOBIN 8.7 g/dL (13.5-17.5); IMMATURE GRANULOCYTES 0.4 % (0-5); LYMPHOCYTES 20.2 % (15-50); MCH 28.9 pg (26.0-34.0); MCHC 32.1 g/dL (31.0-37.0); NEUTROPHILS 60.9 % (40-80); PLATELET COUNT 110 10x3/uL (130-400); RBC 3.01 10x6/uL (4.20-6.10); WBC 4.7 10x3/uL (4.8-10.8)
[2018-06-14 06:29] LABS: ANION GAP 15.8 mmol/L (8-16); CALCIUM 7.6 mg/dL (8.5-10.1); CARBON DIOXIDE 27.3 mmol/L (21.0-32.0); POTASSIUM - SERUM 5.1 mmol/L (3.5-5.1)
[2018-06-14 08:11] VITALS: BP 113/57
[2018-06-14] MEDS ORDERED: PLAVIX75 MG PO (14:52)
[2018-06-14] MEDS ORDERED: ASPIRIN EC81 M1 PO (14:53)
[2018-06-14 15:52] VITALS: BP 104/57
[2018-06-15 16:13] LABS: HEPATITIS C ANTIBODY 0.1 (0.0-0.9)
== END 2018-06-14 18:11 | disposition home or self-care (01) | DRG 246 ==
LOC: D.M2 05:01
PROVIDERS: Internal Medicine Interventional Cardiology; Internal Medicine Nephrology
PROC: 5A1D70Z Performance of Urinary Filtration, Intermittent, Less than 6 Hours Per Day (ICD-10-PCS; principal; 2018-06-10)
PROC: 4A023N7 Measurement of Cardiac Sampling and Pressure, Left Heart, Percutaneous Approach (ICD-10-PCS; 2018-06-13)
PROC: B2111ZZ Fluoroscopy of Multiple Coronary Arteries using Low Osmolar Contrast (ICD-10-PCS; 2018-06-13)
PROC: B2181ZZ Fluoroscopy of Left Internal Mammary Bypass Graft using Low Osmolar Contrast (ICD-10-PCS; 2018-06-13)
PROC: B2121ZZ Fluoroscopy of Single Coronary Artery Bypass Graft using Low Osmolar Contrast (ICD-10-PCS; 2018-06-13)
PROC: B2151ZZ Fluoroscopy of Left Heart using Low Osmolar Contrast (ICD-10-PCS; 2018-06-13)
PROC: 027034Z Dilation of Coronary Artery, One Artery with Drug-eluting Intraluminal Device, Percutaneous Approach (ICD-10-PCS; 2018-06-13 11:00)
PROC: 027034Z Dilation of Coronary Artery, One Artery with Drug-eluting Intraluminal Device, Percutaneous Approach (ICD-10-PCS; 2018-06-14)
DX: I25.119 Atherosclerotic heart disease of native coronary artery with unspecified angina pectoris (principal); N18.6 End stage renal disease; I12.0 Hypertensive chronic kidney disease with stage 5 chronic kidney disease or end stage renal disease; I70.92 Chronic total occlusion of artery of the extremities; Z99.2 Dependence on renal dialysis; E87.5 Hyperkalemia; E78.5 Hyperlipidemia, unspecified; I70.213 Atherosclerosis of native arteries of extremities with intermittent claudication, bilateral legs; Z95.1 Presence of aortocoronary bypass graft; Z87.891 Personal history of nicotine dependence

== ENCOUNTER 2018-06-15 22:21 | Inpatient (IN) | payer MEDICARE ==
[~2018-06-15] VITALS: Ht 177.8 cm; Wt 78.0 kg
--- NOTE | ~2018-06-15 | OP ---
PATIENT NAME: JAEL CHEN MEDICAL RECORD: [id number] :46 LOCATION:D.M2 D.2106 ADMISSION DATE:06/15/18 SURGEON: JOON ASENCIO MD DATE OF OPERATION: 06/17/2018 PROCEDURES: 1. PTCA stent RCA. 2. Selective coronary angiography. PROCEDURE IN DETAIL: After informed consent was obtained and after detailed description of the risks, benefits as well as alternative therapies, the patient elected to proceed with angiogram and angioplasty. The right femoral area was prepped and draped in normal sterile fashion. Right femoral artery was cannulated via a modified Seldinger technique with placement of 7-Icelandic sheath. All catheters exchanged through this sheath. FINDINGS: The right coronary artery has multiple areas of 99% stenosis. This was addressed with a 1.5 and 2.5 balloon. Stenting was undertaken distal to proximal with 2.5 x 18, 2.5 x 8, 2.75 x 38 all Kan stents. Result was 0% residual stenosis. OVERALL IMPRESSION: Successful percutaneous transluminal coronary angioplasty stent of the right coronary artery going from 99% initial stenosis to 0% residual. TRANSINT:[id number] Voice Confirmation ID: [id number] DOCUMENT ID: [id number] JOON ASENCIO MD at 1752 CC: [id number] DICTATION DATE: 06/17/18 0848 MAKE READY WORKER: 06/17/18 1128 DIS IN 06/17/18 [address] [place] [address]
--- NOTE | ~2018-06-15 | HP ---
PATIENT: JAEL CHEN MEDICAL RECORD: [id number] ACCOUNT: [id number] LOCATION:[facility].2106 : 46 ADMISSION DATE: 06/15/18 HISTORY AND PHYSICAL EXAMINATION DIAGNOSES: 1. Non-Q-wave myocardial infarction. 2. Coronary artery disease. 3. Recent PTCA and stent of the left circumflex vein graft and left main with concomitant disease of RCA. 4. End-stage renal failure, on dialysis. 5. Hypertension. HISTORY OF PRESENT ILLNESS: Mr. Chen presents with recurrent chest pain. He presented with chest pain earlier in the week, was found to have severe coronary artery disease, underwent PTCA and stent of the vein graft to the circumflex as well as his left main. He has very significant disease of the RCA. We were going to stage this for next week. He presented with recurrent chest pain and a mildly elevated troponin, hence he is now admitted and we will proceed with transcatheter revascularization of the RCA today. PHYSICAL EXAMINATION: GENERAL APPEARANCE: Well-nourished, well-developed, appears stated age. Level of distress, comfortable. PSYCHIATRIC: Mental status, alert, normal affect. Orientation, oriented to time, place and person. EYES: Lids and conjunctiva, noninjected. No discharge, no pallor. ENT: Lips, teeth, gums, normal dentition. Oropharynx, no cyanosis, no pallor. NECK: Carotid arteries, bilateral normal upstroke, no bruits, no thrills. JUGULAR VEINS: No jugular venous pressure or distention. CERVICAL LYMPH NODES: Nontender, nonenlarged. THYROID: Not enlarged. Nontender. No nodules. LUNGS: Respiratory effort, unlabored. CHEST: Normal curvature. No thoracic deformity. No chest wall tenderness. Percussion, resonant. Auscultation, clear. No wheezes, no rales, no rhonchi. CARDIOVASCULAR: Precordial exam, nondisplaced. No heaves or pericardial thrills. Rate and rhythm, regular. Heart sounds, normal S1, normal S2. No S3, no gallop, no rub. Systolic murmur, not heard. Diastolic murmur, not heard. EXTREMITIES: No cyanosis, no edema. Peripheral pulses, full and equal in all extremities, except as noted. No bruits appreciated. ABDOMEN: Soft, nondistended. Normal aorta. No bruit. Nontender. No masses. Liver, nontender, no hepatomegaly. Spleen, nontender, no splenomegaly. MUSCULOSKELETAL: No joint tenderness. No joint swelling. No erythema. NEUROLOGICAL: Normal gait, normal strength, normal tone. SKIN: Warm and dry. REVIEW OF SYSTEMS: The patient reports easy bruising but reports no swollen glands. The patient reports no fever, no night sweats, no significant weight gain, no significant weight loss. No significant exercise tolerance. The patient reports no dry eyes, no irritation, no vision change. Patient reports no difficulty hearing and no ear pain. Patient reports no frequent nose bleeds or nose and sinus problems. Patient reports on arm pain on exertion. No shortness of breath while lying down. No history of heart murmur. Patient reports no cough, no wheezing or coughing up blood. Patient reports no abdominal pain, no vomiting. Normal appetite. No diarrhea and not vomiting HISTORY AND PHYSICAL [id number] APRILJAEL RIZVI blood. No nausea and no constipation. Patient reports no incontinence. No difficulty urinating. No hematuria. No increased frequency. Patient reports no muscle aches. No weakness, no arthralgias, no back pain. No swelling of the extremities. Patient reports no abnormal mole, no jaundice, no rashes. Reports no loss of consciousness. No weakness and no numbness. No seizures, dizziness, or headaches. The patient reports no depression, no sleep disturbance, feeling safe in a relationship and no alcohol abuse. Patient reports on fatigue. Reports no runny nose or sinus pressure. No itching, no hives, and no frequent sneezing. OVERALL IMPRESSION: Recurrent angina with elevated troponin compatible with non-Q-wave myocardial infarction. We will proceed with PTCA and stent of the RCA. TRANSINT:[id number] Voice Confirmation ID: [id number] DOCUMENT ID: [id number] JOON ASENCIO MD at 1208 CC: [id number] DICTATION DATE: 06/16/18819 PLATING INSPECTOR: 06/16/18 [address] [place] [address]
--- NOTE | ~2018-06-15 | HEMODYNAMI ---
PATIENT:JAEL CHEN MEDICAL RECORD: [id number] : 46 LOCATION:[facility] D.2106 ADMISSION DATE: 06/15/18 Generatedon:06/17/20188:54 Patient name: JAEL CHEN Patient #: [id number] SSN: : 1950 Date of study: 06/17/2018 Page: Of Hemodynamic Procedure Report Patient Data Patient Demographics Procedure consent was obtained First Name: JAEL Gender: Male Last Name: APRIL : 1950 Patient #: [id number] Age: 67 year(s) Race: Black Additional ID: [id number] Contact details [address]: [address] [place] [address] [address] State: [place] City: [place] Zip code: [address] Past Medical History Allergies: No known allergies Admission Admission Data Admission Date: 06/15/2018 Admission Time: 22:50 Room #: 2106 Lab Results Lab Result Date: 06/14/2018 Lab Result Time: 0:00 Biochemistry Name Units Result Min Max BUN mg/dl 59 --(----)-* 7 18 Creatinine mg/dl 9.5 --(----)-* 0.6 1.3 Procedure Procedure Types Cath Procedure Diagnostic Procedure Sedation Charges Moderate Sedation up to 15 minutes PCI Procedure Coronary Stent Coronary Stent Initial Procedure Description Procedure Date Procedure Date: 06/17/2018 Procedure Start Time: 8:17 Procedure End Time: 8:44 Procedure Staff Name Function Feroz Chapman MD Performing Physician Ann Marie Brock RT Monitor Scarlett Day RT Scrub Christiano Mcfadden RN Nurse Procedure Data Cath Procedure Fluoroscopy Diagnostic fluoroscopy Total fluoroscopy Time: time: 11.7 min 11.7 min Diagnostic fluoroscopy Total fluoroscopy dose: dose: 1208 mGy 1208 mGy Contrast Material Contrast Material Type Amount (ml) Isovue 300 118 Entry Location Entry Primary Successful Side Size Upsize Upsize Entry Closure Succes sful Closure Location (Fr) 1 (Fr) 2 (Fr) Remarks Device Remarks Femoral Right 7 Fr Exoseal artery Short Estimated blood loss: 5 ml Procedure Complications No complications Procedure Medications Medication Administration Route Dosage 0.9% NaCl I.V. 10 ml/hr Oxygen etCO2 Nasal cannula 2 l/min Heparin Flush Bag added to field 2 bags (1000units/500ml NS) Lidocaine 2% added to field 20 Versed I.V. 1 mg Fentanyl I.V. 100 mcg Heparin Bolus I.V. 4000 units Plavix P.O. 75 mg Hemodynamics Rest HGB: 11.1 (g/dl) Heart Rate: 73 (bpm) Snapshots Pre Cath Intra NCS Post Cath Vital Signs Time Heart Resp SPO2 etCO2 NIBP (mmHg) Rhythm Pain Sedation Rate (ipm) (%) (mmHg) Status Level (bpm) 8:13:02 72 16 99 29.2 145/80(126) NSR 0 (11) 10(A) , No pain 8:17:22 70 14 100 0 136/68(114) NSR 0 (11) 10(A) , No pain 8:21:40 69 16 100 22.5 126/63(105) NSR 0 (11) 9(A) , No pain 8:25:52 77 18 100 33.7 123/70(96) NSR 0 (11) 9(A) , No pain 8:30:06 80 28 100 32.9 128/65(104) NSR 0 (11) 9(A) , No pain 8:34:20 73 11 100 33.7 131/69(109) NSR 0 (11) 9(A) , No pain 8:38:34 73 21 100 32.2 131/69(108) NSR 0 (11) 9(A) , No pain 8:42:46 73 19 100 30.7 150/74(100) NSR 0 (11) 9(A) , No pain Medications Time Medication Route Dose Verified Delivered Reason Notes Effectiveness by by 8:12:07 0.9% NaCl I.V. 10 Christiano Christiano Per physician ml/hr Bogdan Mcfadden RN RN 8:12:16 Oxygen etCO2 2 Christiano Christiano Per physician Nasal l/min Bogdan Mcfadden cannula RN RN 8:12:27 Heparin Flush added 2 Christiano Christiano used for Bag to bags Bogdan Mcfadden procedure (1000units/500ml field RN RN NS) 8:12:38 Lidocaine 2% added 20ml Christiano Christiano for local to vial Bogdan Mcfadden anesthetic field RN RN 8:17:59 Versed I.V. 1 mg Christiano Christiano for sedation Bogdan Mcfadden RN RN 8:18:09 Fentanyl I.V. 100 Christiano Christiano for sedation mcg Bogdan Mcfadden RN RN 8:20:13 Heparin Bolus I.V. 4000 Christiano Christiano for units Bogdan Mcfadden anticoagulation RN RN 8:53:41 Plavix P.O. 75 mg Christiano Christiano for Bogdan Mcfadden antiplatelet RN RN therapy Procedure Log Time Note 7:46:36 Informed consent obtained and on chart 7:46:42 Diagnostic Cath Status : Elective 7:47:08 Ann Marie Brock RT(R) sent for patient. Start room use. 7:47:09 Time tracking: Regular hours (M-F 7:00 - 5:00) 7:47:13 Plan of Care:Hemodynamics will remain stable., Cardiac rhythm will remain stable., Comfort level will be maintained., Respiratory function will remain adequate., Patient/ family verbilizes understanding of procedure., Procedure tolerated without complication., Recovers from procedure without complications.. 8:11:35 Patient received from Med II to CCL 2 Alert and oriented. Tansferred to table in Supine position. 8:11:47 Warm blankets applied, and maya hugger turned on for patient comfort. 8:11:47 Correct patient and procedure confirmed by team. 8:11:48 ECG and BP/O2 sat monitors applied to patient. 8:11:49 Vital chart was started 8:11:51 Baseline sample Acquired. 8:11:55 Rhythm: sinus rhythm 8:11:56 Full Disclosure recording started 8:12:00 H&P Date Dictated: 06/17/2018 Within 30 days and on chart., H&P Addendum completed by physician on day of procedure. (MUST COMPLETE FOR ALL OUTPATIENTS). 8:12:02 Pre-procedure instructions explained to patient. 8:12:04 Pre-op teaching completed and patient verbalized understanding. 8:12:06 Family unavailable. 8:12:07 0.9% NaCl 10 ml/hr I.V. was administered by Christiano Mcfadden RN; Per physician; 8:12:09 Patient NPO since Midnight. 8:12:16 Oxygen 2 l/min etCO2 Nasal cannula was administered by Christiano Mcfadden RN; Per physician; 8:12:18 Is the patient allergic to Iodine/contrast media? No. 8:12:20 Was the patient premedicated? No 8:12:27 Heparin Flush Bag (1000units/500ml NS) 2 bags added to field was administered by Christiano Mcfadden RN; used for procedure; 8:12:33 Is patient on blood thinner?Yes 8:12:37 ACC The patient was administered the following blood thiners within the last 24 hours: ACCPlavix 8:12:38 Lidocaine 2% 20ml vial added to field was administered by Christiano Mcfadden RN; for local anesthetic; 8:12:42 Patient diabetic? No. 8:15:10 Previous problem with sedation/anesthesia? No ? 8:15:11 Snore? Yes 8:15:13 Sleep apnea? No 8:15:14 Deviated septum? No 8:15:14 Opens mouth fully? Yes 8:15:15 Sticks out tongue? Yes 8:15:17 Airway obstruction? No ? 8:15:20 Dentures? No ? 8:15:24 Pre procedure: right dorsailis pedis pulse 2+ Normal; easily identifiable; not easily obliterated 8:15:26 Pre procedure: left dorsailis pedis pulse 2+ Normal; easily identifiable; not easily obliterated 8:15:28 Patient pain scale 0/10 ?. 8:15:38 IV patent on arrival in right wrist with 0.9% NaCl at KVO. 8:15:44 Lab results completed and on chart. 8:15:50 Right groin area was prepped with chlora-prep and draped in sterile fashion 8:15:51 Alarms reviewed by R. N. 8:15:51 Sharps counted by scrub and verified by R.N. 8:15:54 Physician arrived 8:15:55 --------ALL STOP TIME OUT------ 8:15:55 Final Timeout: patient, procedure, and site verified with staff and physician. All members of the team are in agreement. 8:15:58 Right groin site verified by team. 8:16:00 Physical assessment completed. ASA score P 2 - A patient with mild systemic disease as per Feroz Chapman MD. 8:16:04 Sedation plan: IV Moderate Sedation Medication:Versed, Fentanyl 8:16:08 Use device set Radial Dx or PCI 8:16:09 ACIST Syringe (01690) opened to sterile field. 8:16:09 Medline Cath Pack ([id number]) opened to sterile field. 8:16:10 Bag Decanter (2002S) opened to sterile field. 8:16:10 DIAGNOSTIC WIRE .035 260cm J wire (528030) opened to sterile field. 8:16:11 ACIST Hand Control (90307) opened to sterile field. 8:16:11 ACIST Manifold (07534) opened to sterile field. 8:16:12 Tegaderm 4 x 4 (1626W) opened to sterile field. 8:17:22 INFLATOR Merit BasixCompak (XN4005) opened to sterile field. 8:17:23 FIELDER XT J 300cm guide wire ([id number]) opened to sterile field. 8:17:25 SHEATH 7FR [place] (INI501) opened to sterile field. 8:17:29 Procedure started. 8:17:33 Local anesthetic to right femoral artery with Lidocaine 2% by Feroz Chapman MD.INITIAL ACCESS ONLY 8:17:44 A 7 Fr Short sheath was inserted into the Right Femoral artery 8:17:59 Versed 1 mg I.V. was administered by Christiano Mcfadden RN; for sedation; 8:18:09 Fentanyl 100 mcg I.V. was administered by Christiano Mcfadden RN; for sedation; 8:19:26 GUIDE 7FR AR 2.0 SH catheter ([id number]) opened to sterile field. 8:19:39 7 Fr ar 2 sh guide catheter was inserted over the wire 8:19:47 fielder wire advanced. 8:20:13 Heparin Bolus 4000 units I.V. was administered by Christiano Mcfadden RN; for anticoagulation; 8:25:06 Inflate balloon Inflation number: 1 A EMERGE OTW 1.5 x 15 balloon ([id number]) was prepped and advanced across the Dist RCA, then inflated to 21 KINA for 0:10 (min:sec). 8:25:42 CHOICE PT Extra Support J 300cm guide wire ([id number]) opened to sterile field. 8:26:02 fielder wire exchanged for choice pt extra support 8:26:17 Inflation number: 1 The EMERGE OTW 1.5 x 15 balloon ([id number]) was reinflated across the Mid RCA, to 21 KINA for 0:10 (min:sec). 8:27:03 Balloon removed over the wire. 8:28:20 Inflate balloon Inflation number: 2 A EUPHORA 2.5 x 15 Balloon ([id number]) was prepped and advanced across the Mid RCA, then inflated to 15 KINA for 0:10 (min:sec). 8:28:37 Inflation number: 3 The EUPHORA 2.5 x 15 Balloon ([id number]) was reinflated across the Mid RCA, to 19 KINA for 0:10 (min:sec). 8:29:18 Balloon removed over the wire. 8:31:13 The REGAN OTW 2.5 x 18 stent ([id number]) was advanced then removed because of failure to cross lesion 8:33:13 Inflation number: 4 The EUPHORA 2.5 x 15 Balloon ([id number]) was reinflated across the Mid RCA, to 21 KINA for 0:10 (min:sec). 8:33:28 Inflation number: 5 The EUPHORA 2.5 x 15 Balloon ([id number]) was reinflated across the Mid RCA, to 21 KINA for 0:10 (min:sec). 8:33:44 Inflation number: 1 The EUPHORA 2.5 x 15 Balloon ([id number]) was reinflated across the Prox RCA, to 21 KINA for 0:10 (min:sec). 8:34:05 Balloon removed over the wire. 8:35:36 Place stent Inflation Number: 2 A REGAN OTW 2.5 x 18 stent ([id number]) was prepped and advanced across the Dist RCA. The stent was deployed at 11 KINA for 0:10 (min:sec). 8:35:49 Inflation number: 6 The stent balloon was then re-inflated across the Mid RCA to 21 KINA for 0:10 (min:sec). 8:36:11 Inflation number: 7 The stent balloon was then re-inflated across the Mid RCA to 21 KINA for 0:10 (min:sec). 8:36:57 Stent catheter was removed intact over wire. 8:38:38 Place stent Inflation Number: 2 A REGAN OTW 2.75 x 38 stent ([id number]) was prepped and advanced across the Prox RCA. The stent was deployed at 13 KINA for 0:10 (min:sec). 8:39:55 Stent catheter was removed intact over wire. 8:41:25 Place stent Inflation Number: 8 A REGAN OTW 2.5 x 08 stent ([id number]) was prepped and advanced across the Mid RCA. The stent was deployed at 11 KINA for 0:10 (min:sec). 8:42:11 Stent catheter was removed intact over wire. 8:42:12 Wire removed. 8:42:12 Guide catheter removed. 8:42:26 EXOSEAL 7Fr (EX700) opened to sterile field. 8:43:18 Sheath removed intact; hemostasis achieved with Exoseal to the Right Femoral artery. 8:43:21 Procedure ended.(Physican Out) 8:43:43 Fluoroscopy time 11.70 minutes. 8:43:47 Flurop Dose total: 1208 8:43:47 Fluoroscopy dose: 1208 mGy 8:43:51 Contrast amount:Isovue 300 118ml. 8:43:52 Sharps counted by scrub and verified by R.N. 8:43:53 Insertion/operative site no bleeding no hematoma. 8:43:56 Post-op/insertion site Right Femoral artery dressed using a 4 x 4 and Tegaderm. 8:44:01 Post right femoral artery:stable 8:44:02 Post Procedure Pulses reassessed and unchanged 8:44:05 Post procedure rhythm: unchanged. 8:44:07 Estimated blood loss: 5 ml 8:44:08 Post procedure instruction explained to patient.Patient verbalizes understanding. 8:44:09 Patient needs reinforcement of post procedure teaching. 8:44:30 Procedure type changed to Cath procedure, Diagnostic procedure, Sedation Charges, Moderate Sedation up to 15 minutes, PCI procedure, Coronary Stent, Coronary Stent Initial 8:44:32 Procedure and supply charges have been captured, reviewed, submitted and are correct. 8:44:35 Procedure Complication : No complications 8:44:38 Vital chart was stopped 8:44:38 See physician's report for complete and final results. 8:44:43 Report given to [facility]. 8:44:45 Patient transfered to [facility] with Stretcher. 8:44:47 Procedure ended. 8:44:47 Full Disclosure recording stopped 8:44:54 ACC-PCI Only Patient was given prescriptions, or instructed by Feroz Chapman MD to start/continue the following medications upon discharge: Plavix 8:44:55 End room use (Document Last) 8:53:41 Plavix 75 mg P.O. was administered by Christiano Mcfadden RN; for antiplatelet therapy; Intervention Summary Intervention Notes Time ActionType Lesion and Equipment Action# Pressure Duration Attributes Used 8:25:06 Inflate Dist RCA EMERGE OTW 1 21 00:10 balloon 1.5 x 15 balloon ([id number]) 8:26:17 Reinflate Mid RCA EMERGE OTW 1 21 00:10 balloon 1.5 x 15 balloon ([id number]) 8:28:20 Inflate Mid RCA EUPHORA 2.5 x 2 15 00:10 balloon 15 Balloon ([id number]) 8:28:37 Reinflate Mid RCA EUPHORA 2.5 x 3 19 00:10 balloon 15 Balloon ([id number]) 8:31:13 Discard REGAN OTW 2.5 Stent x 18 stent ([id number]) 8:33:13 Reinflate Mid RCA EUPHORA 2.5 x 4 21 00:10 balloon 15 Balloon ([id number]) 8:33:28 Reinflate Mid RCA EUPHORA 2.5 x 5 21 00:10 balloon 15 Balloon ([id number]) 8:33:44 Reinflate Prox RCA EUPHORA 2.5 x 1 21 00:10 balloon 15 Balloon ([id number]) 8:35:36 Place stent Dist RCA REGAN OTW 2.5 2 11 00:10 x 18 stent ([id number]) 8:35:49 Reinflate Mid RCA REGAN OTW 2.5 6 21 00:10 stent x 18 stent balloon ([id number]) 8:36:11 Reinflate Mid RCA REGAN OTW 2.5 7 21 00:10 stent x 18 stent balloon ([id number]) 8:38:38 Place stent Prox RCA REGAN OTW 2.75 2 13 00:10 x 38 stent ([id number]) 8:41:25 Place stent Mid RCA REGAN OTW 2.5 8 11 00:10 x 08 stent ([id number]) Device Usage Item Name Manufacture Quantity Catalog Number Hospital Part Current M inimal Lot# / Charge Number Stock Stock Serial# Code ACIST Syringe Acist 1 17607 471852 977081 773744 2 0 (61511) Medical Systems Inc Medline Cath Cardinal 1 [id number] 835689 31495 635239 5 Pack Health ([id number]) Bag Decanter Microtek 1 2001S 702618 33228 488385 5 (2001S) Medical Inc. DIAGNOSTIC St Hema 1 325318 165943 792822 193173 3 0 WIRE .035 260cm J wire (855193) ACIST Hand Acist 1 55645 478497 533753 339462 5 Control Medical (08903) Systems Inc ACIST Acist 1 05451 234036 856659 107798 5 Manifold Medical (02371) Systems Inc Tegaderm 4 x 3M 1 1626W 766436 065889 448030 5 4 (1626W) INFLATOR [employer] Software 1 LJ9859 007911 471047 902058 1 5 elicit BasixCompak (PE2982) FIELDER XT J Dumont 1 [id number] 395871 428989 132940 5 300cm guide Vascular wire ([id number]) SHEATH 7FR Terumo 1 KHV524 641029 713363 033950 5 [place] (BNO377) GUIDE 7FR AR Medtronic 1 [id number] 994209 782588 760536 0 2.0 SH catheter ([id number]) EMERGE OTW [place] 1 [id number] 804262 412852 007430 5 [id number] 1.5 x 15 Scientific balloon ([id number]) CHOICE PT [place] 1 [id number] 358416 114510 890432 5 Extra Support Scientific J 300cm guide wire ([id number]) EUPHORA 2.5 x Medtronic 1 [id number] 645462 811308 949285 5 [id number] 15 Balloon ([id number]) REGAN OTW 2.5 Medtronic 1 [id number] 331736 65333 841909 5 [id number] x 18 stent ([id number]) REGAN OTW 2.75 Medtronic 1 [id number] 732206 8996815 194806 5 [id number] x 38 stent ([id number]) REGAN OTW 2.5 Medtronic 1 [id number] 551926 79625 812733 5 [id number] x 08 stent ([id number]) EXOSEAL 7Fr Cardinal 1 EX700 491441 101448 194183 5 (EX700) Health Signature Audit [place] Stage Time Signature Unsigned Intra-Procedure 06/17/2018 Ann Marie Brock 8:54:27 AM RT(R) Signatures Monitor : Ann Marie Brock RT Signature : Date : Time : [id number] [place] [address]
--- NOTE | ~2018-06-15 | DS ---
PATIENT:JAEL CHEN :46 MEDICAL RECORD: [id number] DISCHARGE SUMMARY ADMISSION DATE: 06/15/18 DISCHARGE DATE: 06/17/18 DIAGNOSES: 1. Angina. 2. Non-Q-wave myocardial infarction. 3. Coronary artery disease. 4. PTCA stent RCA this admission. 5. End-stage renal failure, on dialysis. 6. Hypertension. 7. Hyperlipidemia. HOSPITAL COURSE: Mr. Chen presents with recurrent chest pain. He has known critical disease of the RCA. He had a mildly elevated troponin. He underwent successful PTCA stent of the RCA, went home after dialysis with no change in his medications as he is already on aspirin and Plavix. He will follow up with [facility] in 1 month. TRANSINT:[id number] Voice Confirmation ID: [id number] DOCUMENT ID: [id number] JOON ASENCIO MD at 1752 CC: [id number] DICTATION DATE: 06/17/18 0847 GOVERNMENT CLERK: 06/17/18 1300 DIS IN 06/17/18 [address] [place] [address]
[~2018-06-15 22:21] MED LIST: ASPIRIN EC81 M1 PO; FOLIC ACID1 MG PO; HYDRALAZINE HCL25 MG PO; ISOSORBIDE DINI30 MG PO; LIPITOR40 MG PO; LOPRESSOR25 MG PO; LOTENSIN5 MG PO; NORCO 7.5/325 T1 TA1 PO; NORVASC2.5 MG PO; PLAVIX75 MG PO; PROTONIX40 MG PO; RENVELA800 MG PO; ZYLOPRIM100 MG PO
[2018-06-16 04:06] VITALS: BP 129/69; BMI 24.7
[2018-06-16 04:14] LABS: BASOPHILS 0 % (0-2); EOSINOPHILS 3.9 % (0-7); HEMATOCRIT 26.4 % (42.0-54.0); HEMOGLOBIN 8.4 g/dL (13.5-17.5); IMMATURE GRANULOCYTES 0.2 % (0-5); LYMPHOCYTES 35.1 % (15-50); MCHC 31.8 g/dL (31.0-37.0); MEAN PLATELET VOLUME 11.8 fL (7.4-10.4); MONOCYTES 11.3 % (2-11); NEUTROPHILS 49.5 % (40-80); PLATELET COUNT 104 10x3/uL (130-400); RDW 16.9 % (11.5-14.5); WBC 4.4 10x3/uL (4.8-10.8)
[2018-06-16 04:34] LABS: INR 1.27 (0.85-1.17); PROTIME 15.5 SECONDS (11.6-15.0)
[2018-06-16 04:55] LABS: ALBUMIN 2.4 g/dL (3.4-5.0); ANION GAP 13.2 mmol/L (8-16); BILIRUBIN - TOTAL 0.36 mg/dL (0.2-1.3); CALCIUM 7.1 mg/dL (8.5-10.1); CARBON DIOXIDE 30.4 mmol/L (21.0-32.0); CREATININE - SERUM 10.3 mg/dL (0.6-1.3); POTASSIUM - SERUM 4.6 mmol/L (3.5-5.1); PROTEIN - SERUM 5.2 g/dL (6.4-8.2)
[2018-06-16 05:05] LABS: CKMB 1.5 U/L (0.0-3.6); CREATINE KINASE 72 UL (21-232)
[2018-06-16 05:14] LABS: TROPONIN-I 3.656 ng/mL (0.000-0.060)
[2018-06-16 06:11] VITALS: BP 109/61
[2018-06-16 07:48] VITALS: BP 113/50
[2018-06-16 08:55] LABS: CKMB 1.6 U/L (0.0-3.6); CREATINE KINASE 67 UL (21-232)
[2018-06-16 08:56] LABS: TROPONIN-I 3.042 ng/mL (0.000-0.060)
[2018-06-16 11:09] VITALS: BMI 24.6
[2018-06-16 11:52] VITALS: BP 94/50
[2018-06-16 12:05] VITALS: Ht 177.8 cm; Wt 78.0 kg
[2018-06-16 15:19] LABS: CKMB 1.3 U/L (0.0-3.6); CREATINE KINASE 61 UL (21-232)
[2018-06-16 15:20] LABS: TROPONIN-I 2.299 ng/mL (0.000-0.060)
[2018-06-16 15:54] VITALS: BP 114/63
[2018-06-16 21:00] VITALS: BP 113/54
[2018-06-17 02:11] VITALS: BP 120/55
[2018-06-17 06:28] VITALS: BP 117/54
[2018-06-17 07:40] VITALS: BP 112/52
[2018-06-17 15:08] VITALS: BP 108/66
== END 2018-06-17 17:51 | disposition home health service (06) | DRG 246 ==
LOC: D.M2 22:21
PROVIDERS: Internal Medicine Interventional Cardiology
PROC: 4A023N7 Measurement of Cardiac Sampling and Pressure, Left Heart, Percutaneous Approach (ICD-10-PCS; 2018-06-17)
PROC: B2111ZZ Fluoroscopy of Multiple Coronary Arteries using Low Osmolar Contrast (ICD-10-PCS; 2018-06-17)
PROC: 5A1D70Z Performance of Urinary Filtration, Intermittent, Less than 6 Hours Per Day (ICD-10-PCS; 2018-06-17)
PROC: 027036Z Dilation of Coronary Artery, One Artery with Three Drug-eluting Intraluminal Devices, Percutaneous Approach (ICD-10-PCS; principal; 2018-06-17 10:00)
DX: I21.4 Non-ST elevation (NSTEMI) myocardial infarction (principal); N18.6 End stage renal disease; I12.0 Hypertensive chronic kidney disease with stage 5 chronic kidney disease or end stage renal disease; I25.10 Atherosclerotic heart disease of native coronary artery without angina pectoris; Z99.2 Dependence on renal dialysis; E78.5 Hyperlipidemia, unspecified; D63.1 Anemia in chronic kidney disease

== ENCOUNTER 2018-08-02 08:01 | Outpatient (CLI) | payer MEDICARE ==
[~2018-08-02] VITALS: Ht 177.8 cm; Wt 72.7 kg
--- NOTE | ~2018-08-02 | HEMODYNAMI ---
PATIENT:JAEL CHEN MEDICAL RECORD: [id number] : 46 LOCATION:[facility] ADMISSION DATE: 08/02/18 Generatedon:08/02/201811:03 Patient name: JAEL CHEN Patient #: [id number] SSN: : 1950 Date of study: 08/02/2018 Page: Of Hemodynamic Procedure Report Patient Data Patient Demographics Procedure consent was obtained First Name: JAEL Gender: Male Last Name: APRIL : 1950 Patient #: [id number] Age: 67 year(s) Race: Black Additional ID: [id number] Contact details [address]: [address] [place] [address] [address] State: [place] City: [place] Zip code: [address] Past Medical History Allergies: No known allergies Admission Admission Data Admission Date: 08/02/2018 Admission Time: 8:01 Weight (lbs.): 148 Weight (kg.): 67.13 Lab Results Lab Result Date: 08/02/2018 Lab Result Time: 0:00 Biochemistry Name Units Result Min Max BUN mg/dl 50 --(----)-* 7 18 Creatinine mg/dl 10.3 --(----)-* 0.6 1.3 CBC Name Units Result Min Max Hemoglobin g/dl 12.7 -*(----)-- 13.5 17.5 Procedure Procedure Types Cath Procedure Diagnostic Procedure Peripheral Cath Diagnostic Procedure Custom Tailor Apprentice Peripheral Procedures Xftaq-Yfjulex-Kvt-Off Peripheral vascular Intervention Angioplasty Angioplasty Tib-Per Initial Stent Stent-Fem/Popw/plasty Procedure Description Procedure Date Procedure Date: 08/02/2018 Procedure Start Time: 10:34 Procedure End Time: 11:02 Procedure Staff Name Function Feroz Chapman MD Performing Physician Patricia Duque RT Scrub Boni Dominguez RT Design Maker Christiano Mcfadden RN Design Maker Kayy Sarmiento RN Design Maker Scarlett Day RT Monitor Procedure Data Cath Procedure Fluoroscopy Diagnostic fluoroscopy Total fluoroscopy Time: 5.6 time: 5.6 min min Diagnostic fluoroscopy Total fluoroscopy dose: 41 dose: 41 mGy mGy Contrast Material Contrast Material Type Amount (ml) Isovue 300 83 Entry Location Entry Primary Successful Side Size Upsize Upsize Entry Closure Succes sful Closure Location (Fr) 1 (Fr) 2 (Fr) Remarks Device Remarks Femoral Right 5 Fr 6 Fr 6 Fr Exoseal artery Long Short Estimated blood loss: 10 ml Diagnostic catheters Device Type Used For End Catheter Placement DIAGNOSTIC UF 5Fr Procedure catheter ([id number]) Procedure Complications No complications Procedure Medications Medication Administration Route Dosage Oxygen etCO2 Nasal cannula 2 l/min Lidocaine 2% added to field 20 Heparin Flush Bag added to field 2 bags (1000units/500ml NS) 0.9% NaCl I.V. Versed I.V. 1 mg Fentanyl I.V. 50 mcg Versed I.V. 1 mg Fentanyl I.V. 50 mcg Heparin Bolus I.V. 4000 units Fentanyl I.V. 25 mcg Nitroglycerin IC/IA I.A. 500 mcg Hemodynamics Rest HGB: 12.7 (g/dl) Heart Rate: 69 (bpm) Snapshots Pre Cath Intra NCS Post Cath Vital Signs Time Heart Resp SPO2 etCO2 NIBP (mmHg) Rhythm Pain Sedation Rate (ipm) (%) (mmHg) Status Level (bpm) 10:15:06 66 12 100 0 150/71(99) NSR 0 (11) 10(A) , No pain 10:19:46 64 19 100 39 150/74(119) NSR 0 (11) 10(A) , No pain 10:25:06 67 13 100 36 171/85(117) NSR 0 (11) 10(A) , No pain 10:29:50 67 19 100 23.2 136/67(99) NSR 0 (11) 10(A) , No pain 10:34:29 70 16 100 39.7 133/83(117) NSR 0 (11) 9(A) , No pain 10:39:10 67 15 100 39.7 134/65(93) NSR 0 (11) 9(A) , No pain 10:43:50 76 14 100 21 135/63(92) NSR 0 (11) 9(A) , No pain 10:48:29 69 14 100 18.7 99/52(89) NSR 0 (11) 9(A) , No pain 10:53:34 70 15 100 38.2 101/58(89) NSR 0 (11) 9(A) , No pain 10:58:06 70 15 100 39 110/67(94) NSR 0 (11) 10(A) , No pain 11:02:47 40.5 No Cuff NSR 0 (11) 10(A) , No pain Medications Time Medication Route Dose Verified Delivered Reason Notes Effectiveness by by 10:12:59 Oxygen etCO2 2 Feroz Sultana used for Nasal l/min Adela Sarmiento RN procedure cannula 10:14:01 Lidocaine 2% added 20ml Ferozaroldo Redman for local to vial Adela Chapman MD anesthetic field 10:14:21 Heparin Flush added 2 Feroz Feroz used for Bag to bags Adela Chapman MD procedure (1000units/500ml field NS) 10:14:46 0.9% NaCl I.V. kvo Feroz Sultana Per physician ml/hr Adela Sarmiento RN 10:29:33 Versed I.V. 1 mg Feroz Sultana for sedation Adela Sarmiento RN 10:29:39 Fentanyl I.V. 50 Feroz Buffie for sedation mcg Adela Sarmiento RN 10:33:00 Versed I.V. 1 mg Feroz Josephie for sedation Adela Sarmiento RN 10:33:05 Fentanyl I.V. 50 Feroz Josephie for sedation mcg Adela Sarmiento RN 10:37:01 Heparin Bolus I.V. 4000 Feroz Sultana for verif ied units Adela Sarmiento RN anticoagulation with dr chapman 10:44:16 Fentanyl I.V. 25 Feroz Sultana for sedation mcg Adela Sarmiento RN 10:47:19 Nitroglycerin I.A. 500 Feroz Redman for IC/IA mcg Adela Chapman MD vasodilation Procedure Log Time Note 9:50:45 Time tracking: Regular hours (M-F 7:00 - 5:00) 9:50:49 Plan of Care:Hemodynamics will remain stable., Cardiac rhythm will remain stable., Comfort level will be maintained., Respiratory function will remain adequate., Patient/ family verbilizes understanding of procedure., Procedure tolerated without complication., Recovers from procedure without complications.. 9:50:51 Signed procedure consent form obtained from patient. 9:55:26 Boni Dominguez RT(R) sent for patient. Start room use. 9:55:35 H&P Date Dictated: 07/28/2018 Within 30 days and on chart., H&P Addendum completed by physician on day of procedure. (MUST COMPLETE FOR ALL OUTPATIENTS). 9:56:27 Patient allergic to No known allergies 9:57:01 Patient Weight : 148 lbs 10:07:12 Patient received from Pre/Post Procedure Room to CCL 1 Alert and oriented. Tansferred to table in Supine position. 10:07:13 Warm blankets applied, and maya hugger turned on for patient comfort. 10:07:14 Correct patient and procedure confirmed by team. 10:07:15 ECG and BP/O2 sat monitors applied to patient. 10:09:46 Pre-procedure instructions explained to patient. 10:09:48 Family in patients room. 10:09:51 Patient NPO since Midnight. 10:09:57 Is the patient allergic to Iodine/contrast media? No. 10:09:59 Was the patient premedicated? Yes 10:10:38 Is patient on blood thinner?Yes 10:10:42 ACC The patient was administered the following blood thiners within the last 24 hours: ACCPlavix 10:12:37 Patient diabetic? No. 10:12:43 Snore? Unknown 10:12:45 Sleep apnea? No 10:12:53 Dentures? No out 10:12:59 Oxygen 2 l/min etCO2 Nasal cannula was administered by Kayy Sarmiento RN; used for procedure; 10:13:09 IV patent on arrival in right forearm with 0.9% NaCl at O. 10:13:15 Lab results completed and on chart. 10:13:36 Vital chart was started 10:13:41 Lab Result : BUN 50 mg/dl 10:13:41 Lab Result : Hemoglobin 12.7 g/dl 10:13:41 Lab Result : Creatinine 10.3 mg/dl 10:13:48 Bilateral groins area was prepped with chlora-prep and draped in sterile fashion 10:13:51 Alarms reviewed by R. N. 10:13:51 Sharps counted by scrub and verified by R.N. 10:14:01 Lidocaine 2% 20ml vial added to field was administered by Feroz Chapman MD; for local anesthetic; 10:14:03 Baseline sample Acquired. 10:14:18 Rhythm: sinus rhythm 10:14:20 Full Disclosure recording started 10:14:21 Heparin Flush Bag (1000units/500ml NS) 2 bags added to field was administered by Feroz Chapman MD; used for procedure; 10:14:28 Physician paged 10:14:46 0.9% NaCl kvo ml/hr I.V. was administered by Kayy Sarmiento RN; Per physician; 10:16:06 Use device set Femoral Dx 10:16:07 ACIST Syringe (42669) opened to sterile field. 10:16:09 Bag Decanter (2002S) opened to sterile field. 10:16:11 Medline Cath Pack ([id number]) opened to sterile field. 10:16:12 DIAGNOSTIC WIRE .035 260cm J wire (909388) opened to sterile field. 10:16:14 ACIST Hand Control (54994) opened to sterile field. 10:16:15 ACIST Manifold (17147) opened to sterile field. 10:16:18 Tegaderm 4 x 4 (1626W) opened to sterile field. 10:16:19 PERCUTANEOUS ENTRY 19GA needle opened to sterile field. 10:16:22 SHEATH Prelude 5Fr 0.035 (FZV-4O-41-035) opened to sterile field. 10:29:09 Physician arrived 10:29:10 --------ALL STOP TIME OUT------ 10:29:10 Final Timeout: patient, procedure, and site verified with staff and physician. All members of the team are in agreement. 10:29:15 Bilateral groins site verified by team. 10:29:21 Physical assessment completed. ASA score P 3 - A patient with severe systemic disease as per Feroz Chapman MD. 10:29:25 Sedation plan: IV Moderate Sedation Medication:Versed, Fentanyl 10:29:33 Versed 1 mg I.V. was administered by Kayy Sarmiento RN; for sedation; 10:29:39 Fentanyl 50 mcg I.V. was administered by Kayy Sarmiento RN; for sedation; 10:31:39 Zero performed for pressure channel P1 10:33:00 Versed 1 mg I.V. was administered by Kayy Sarmiento RN; for sedation; 10:33:05 Fentanyl 50 mcg I.V. was administered by Kayy Sarmiento RN; for sedation; 10:34:18 Procedure started. 10:34:31 Local anesthetic to left femerol artery with Lidocaine 2% by Feroz Chapman MD.INITIAL ACCESS ONLY 10:36:05 A 5 Fr sheath was inserted into the Right Femoral artery 10:36:24 A DIAGNOSTIC UF 5Fr catheter ([id number]) was advanced over the wire and used for Procedure. 10:37:01 Heparin Bolus 4000 units I.V. was administered by Kayy Sarmiento RN; for anticoagulation; verified with dr chapman 10:37:13 5fr UF catheter was inserted over the wire. 10:37:24 glidewire wire advanced. 10:38:22 UF catherter was removed 10:38:29 Sheath upsized to a 6 Fr Long. 10:38:46 Right leg runoff performed. 10:39:25 GLIDE WIRE ANGLE 260cm (IK6862) opened to sterile field. 10:39:39 INFLATOR Merit BasixCompak (RU2008) opened to sterile field. 10:40:01 SHEATH 6FR Destination (RSR01) opened to sterile field. 10:44:03 Procedure type changed to Cath procedure, Diagnostic procedure, Peripheral Cath Diagnostic Procedure, Custom Tailor Apprentice Peripheral Procedures, Bdlky-Wsujajk-Kfu-Off, Peripheral vascular Intervention, Angioplasty, Angioplasty Tib-Per Initial, Stent, Stent-Fem/Popw/plasty 10:44:16 Fentanyl 25 mcg I.V. was administered by Kayy Sarmiento RN; for sedation; 10:45:13 Inflate balloon Inflation number: 1 A POWERFLEX PRO 5.0 x 20 x 135cm balloon ([id number]) was prepped and advanced across the Proximal Popliteal, Right, then inflated to 9 KINA for 0:00 (min:sec). 10:45:29 Inflation number: 1 The POWERFLEX PRO 5.0 x 20 x 135cm balloon ([id number]) was reinflated across the Tibial Peroneal Trunk, Right, to 9 KINA for 0:00 (min:sec). 10:45:30 glidewire exchanged for choice pt ex support 10:45:42 Balloon removed over the wire. 10:47:19 Nitroglycerin IC/IA 500 mcg I.A. was administered by Feroz Chapman MD; for vasodilation; 10:47:20 Inflate balloon Inflation number: 1 A EMERGE OTW 3.5 x 20 balloon ([id number]) was prepped and advanced across the Tibial Peroneal Trunk, Right1, then inflated to 9 KINA for 0:00 (min:sec). 10:47:41 Inflation number: 2 The EMERGE OTW 3.5 x 20 balloon ([id number]) was reinflated across the Tibial Peroneal Trunk, Right1, to 5 KINA for 0:05 (min:sec). 10:48:24 CHOICE PT Extra Support J 300cm guide wire ([id number]) opened to sterile field. 10:52:10 SMART Flex 5 X 30 X 120 stent ([id number]) was deployed across Proximal Popliteal, Right . 10:54:06 SHEATH Prelude 6Fr 0.035 (IJB-6V-92-035) opened to sterile field. 10:54:35 Sheath upsized to a 6 Fr Short. 10:54:52 EXOSEAL 6Fr (EX600) opened to sterile field. 10:55:50 Stent removed. 10:55:52 Wire removed. 10:55:53 Catheter removed. 10:56:12 Sheath removed intact; hemostasis achieved with Exoseal to the Right Femoral artery. 10:56:20 Procedure ended.(Physican Out) 10:56:33 Fluoroscopy time 05.60 minutes. 10:56:42 Fluoroscopy dose: 41 mGy 10:56:42 Flurop Dose total: 41 10:56:49 Contrast amount:Isovue 300 83ml. 10:56:52 Sharps counted by scrub and verified by R.N. 10:57:00 Insertion/operative site no bleeding no hematoma. 10:57:05 Post Procedure Pulses reassessed and unchanged 10:57:10 Post procedure rhythm: unchanged. 10:57:14 Estimated blood loss: 10 ml 10:57:18 Post procedure instruction explained to patient.Patient verbalizes understanding. 11:02:03 Procedure and supply charges have been captured, reviewed, submitted and are correct. 11:02:13 Procedure Complication : No complications 11:02:18 Vital chart was stopped 11:02:20 See physician's report for complete and final results. 11:02:35 Report given to Pre/Post Procedure Room. 11:02:40 Patient transfered to Pre/Post Procedure Room with Stretcher. 11:02:42 Procedure ended. 11:02:42 Full Disclosure recording stopped 11:02:45 End room use (Document Last) Intervention Summary Intervention Notes Time ActionType Lesion and Equipment Action# Pressure Duration Attributes Used 10:45:13 Inflate Proximal POWERFLEX 1 9 00:00 balloon Popliteal, PRO 5.0 x 20 Right x 135cm balloon ([id number]) 10:45:29 Reinflate Tibial POWERFLEX 1 9 00:00 balloon Peroneal PRO 5.0 x 20 Trunk, x 135cm Right balloon ([id number]) 10:47:20 Inflate Tibial EMERGE OTW 1 9 00:00 balloon Peroneal 3.5 x 20 Trunk, balloon Right1 ([id number]) 10:47:41 Reinflate Tibial EMERGE OTW 2 5 00:05 balloon Peroneal 3.5 x 20 Trunk, balloon Right1 ([id number]) 10:52:10 Deploy self Proximal SMART Flex 5 1 expanding Popliteal, X 30 X 120 stent Right stent ([id number]) Device Usage Item Name Manufacture Quantity Catalog Number Hospital Part Current Minimal Lot# / Charge Number Stock Stock Serial# Code ACIST Syringe Acist 1 38351 [id number] 442126 [id number] 20 (54440) [employer] Bag Decanter Microtek 1 2001S 340540 83501 353269 5 (2001S) Medical Inc. Medline Cath Cardinal 1 [id number] 772719 01020 503258 5 Pack Health ([id number]) DIAGNOSTIC WIRE St Hema 1 130391 588667 355072 882574 30 .035 260cm J wire (623576) ACIST Hand Acist 1 25300 604259 720757 266801 5 Control (64854) [employer] ACIST Manifold Acist 1 54121 705226 016982 028737 5 (32432) [employer] Inc Tegaderm 4 x 4 3M 1 1626W 820622 261185 520054 5 (1626W) PERCUTANEOUS Cook Medical 1 B16929 070563 080444 5 ENTRY 19GA needle SHEATH Prelude Merit 1 CRV-3P-05-035 742823 677678 959438 5 5Fr 0.035 Medical (JPA-4G-99-035) DIAGNOSTIC UF Cardinal 1 [id number] 336907 932795 536583 10 5Fr catheter Health (533068P9) GLIDE WIRE Terumo 1 GE0924 416893 578021 019288 5 ANGLE 260cm (EI6392) INFLATOR Merit Merit 1 CD4116 515605 934352 372905 15 [facility] (HU4889) SHEATH 6FR Terumo 1 RSR01 406266 50986 266829 5 Destination (RSR01) POWERFLEX PRO Cardinal 1 [id number] 228818 785663 359547 5 5.0 x 20 x Health 135cm balloon ([id number]) EMERGE OTW 3.5 Totz 1 [id number] 618206 735275 750482 5 x 20 balloon Scientific ([id number]) CHOICE PT Extra Totz 1 [id number] 320951 926147 673961 5 Support J 300cm Scientific guide wire (5912748E2) SMART Flex 5 X Cardinal 1 [id number] 660678 487124 0 17175 30 X 120 stent Health ([id number]) SHEATH Prelude Merit 1 TGV-7P-01-35 295661 1347919 440644 5 6Fr 0.035 Medical (WXH-2N-37-035) EXOSEAL 6Fr Cardinal 1 EX600 572849 137481 050075 10 (EX600) Health Signature Audit [place] Stage Time Signature Unsigned Intra-Procedure 08/02/2018 Scarlett Day 11:03:11 AM RT(R) Signatures Monitor : Scarlett Day Signature : RT Date : Time : [facility] [address] [facility] [place] [address]
--- NOTE | ~2018-08-02 | OP ---
PATIENT NAME: JAEL CHEN MEDICAL RECORD: [id number] :46 LOCATION:D.CAT ADMISSION DATE: SURGEON: JOON ASENCIO MD DATE OF OPERATION: 08/02/2018 PROCEDURES: 1. Stent placement, popliteal right. 2. REWINDER, popliteal right. 3. REWINDER, perineal right. 4. Unilateral extremity angiography. INDICATION: Claudication and peripheral vascular disease. PROCEDURE IN DETAIL: After informed consent was obtained and after a detailed explanation of risks, benefits as well as alternative therapies, the patient elected to proceed with angiogram and angioplasty. The left femoral area was prepped and draped in normal sterile fashion. Left femoral artery was cannulated via modified Seldinger technique with placement of 6-[place]izen [place] gaufcx-rup-hdwe sheath. All catheters exchanged through this sheath. FINDINGS: The right popliteal is 95% stenosed. The peroneal is 100% stenosed. We were able to traverse the 100% stenosis with a Choice PT extra support wire, ballooned this with a 3.5 coronary balloon. We then turned our attention to the popliteal, ballooned this with a 5.0 balloon, yielded suboptimal result with severe intimal dissection, stented this with a 5 x 30 SMART Flex stent. Result was 0% residual stenosis. OVERALL IMPRESSION: Successful REWINDER and stent of the right popliteal going from 95% initial stenosis to 0% residual stenosis. TRANSINT:[id number] Voice Confirmation ID: [id number] DOCUMENT ID: [id number] JOON ASENCIO MD at 1823 CC: [id number] DICTATION DATE: 08/02/18 1059 APPLICATION CHEMIST: 08/02/18 1223 DEP CLI 08/02/18 [facility] [address] [place] [address]
[2018-08-02] MEDS ORDERED: CYCLOBENZAPRINE5 MG PO (08:29)
[2018-08-02] MEDS ORDERED: PERCOCET 7.5/321 TAB PO (08:30)
[2018-08-02] MEDS ORDERED: ZOFRAN ODT4 MG/UDTAB PO (08:31)
[2018-08-02] MEDS ORDERED: PHENERGAN25 M1 PO (08:31)
[2018-08-02] MEDS ORDERED: FUROSEMIDE20 MG PO (08:32)
[2018-08-02] MEDS ORDERED: CLARITIN 10 MG10 MG PO (08:33)
[2018-08-02 08:34] LABS: BASOPHILS 0 % (0-2); EOSINOPHILS 1.4 % (0-7); HEMATOCRIT 39.8 % (42.0-54.0); HEMOGLOBIN 12.7 g/dL (13.5-17.5); IMMATURE GRANULOCYTES 0.3 % (0-5); LYMPHOCYTES 19.6 % (15-50); MCH 30.5 pg (26.0-34.0); MCHC 31.9 g/dL (31.0-37.0); MCV 95.7 fL (80.0-100.0); MONOCYTES 13.6 % (2-11); NEUTROPHILS 65.1 % (40-80); RBC 4.16 10x6/uL (4.20-6.10); WBC 7.1 10x3/uL (4.8-10.8)
[2018-08-02] MEDS ORDERED: ATROPINE (08:34)
[2018-08-02] MEDS ORDERED: DIPHENOXYLATE (08:34)
[2018-08-02 08:36] LABS: PLATELET COUNT 169 10x3/uL (130-400)
[2018-08-02 08:40] VITALS: BP 129/53; Ht 177.8 cm; Wt 72.7 kg
[2018-08-02 08:41] LABS: ANION GAP 17.4 mmol/L (8-16); CALCIUM 9.1 mg/dL (8.5-10.1); CREATININE - SERUM 10.3 mg/dL (0.6-1.3); POTASSIUM - SERUM 4.4 mmol/L (3.5-5.1)
== END 2018-08-02 15:00 ==
LOC: D.CATH 08:01
PROVIDERS: Internal Medicine Interventional Cardiology
DX: I70.211 Atherosclerosis of native arteries of extremities with intermittent claudication, right leg (principal)

== ENCOUNTER → 2018-08-16 08:21 | Outpatient (CLI) | payer MEDICARE ==
[~2018-08-16] VITALS: Ht 177.8 cm; Wt 70.5 kg
--- NOTE | ~2018-08-16 | HEMODYNAMI ---
PATIENT:JAEL CHEN MEDICAL RECORD: [id number] : 46 LOCATION:D.CAT ADMISSION DATE: 08/16/18 Generatedon:08/16/201814:38 Patient name: JAEL CHEN Patient #: [id number] SSN: : 1950 Date of study: 08/16/2018 Page: Of Hemodynamic Procedure Report Patient Data Patient Demographics Procedure consent was obtained First Name: JAEL Gender: Male Last Name: APRIL : 1950 Patient #: [id number] Age: 67 year(s) Race: Black Additional ID: [id number] Contact details [address]: [address] [place] [address] [address] State: [place] City: [place] Zip code: [address] Past Medical History Allergies: No known allergies Admission Admission Data Admission Date: 08/16/2018 Admission Time: 8:21 Procedure Procedure Types Cath Procedure Peripheral vascular Intervention Stent Stent-Fem/Popw/plasty Procedure Description Procedure Date Procedure Date: 08/16/2018 Procedure Start Time: 14:13 Procedure End Time: 14:37 Procedure Staff Name Function Feroz Chapman MD Performing Physician Ilya Cabrales RT Monitor Patricia uDque RT Scrub Vipul Gross RN Nurse Procedure Data Cath Procedure Fluoroscopy Diagnostic fluoroscopy Total fluoroscopy Time: 4.3 time: 4.3 min min Diagnostic fluoroscopy Total fluoroscopy dose: 33 dose: 33 mGy mGy Contrast Material Contrast Material Type Amount (ml) Isovue 300 52 Entry Location Entry Primary Successful Side Size Upsize Upsize Entry Closure Succes sful Closure Location (Fr) 1 (Fr) 2 (Fr) Remarks Device Remarks Femoral Right 6 Fr 6 Fr 6 Fr Exoseal artery Short Long Short Estimated blood loss: 10 ml Diagnostic catheters Device Type Used For End Catheter Placement DIAGNOSTIC IMT 5Fr Procedure Catheter ([id number]) Procedure Complications No complications Procedure Medications Medication Administration Route Dosage Oxygen etCO2 Nasal cannula 2 l/min Heparin Flush Bag added to field 2 bags (1000units/500ml NS) 0.9% NaCl I.V. 100 ml/hr Fentanyl I.V. 50 mcg Versed I.V. 1 mg Fentanyl I.V. 50 mcg Versed I.V. 1 mg Heparin Bolus I.V. 4000 units Hemodynamics Rest Heart Rate: 73 (bpm) Snapshots Pre Cath Intra NCS Post Cath Vital Signs Time Heart Resp SPO2 etCO2 NIBP (mmHg) Rhythm Pain Sedation Rate (ipm) (%) (mmHg) Status Level (bpm) 14:04:52 73 17 98 0 143/85(122) NSR 0 (11) 10(A) , No pain 14:09:08 73 17 100 0 146/83(120) NSR 0 (11) 10(A) , No pain 14:13:24 76 16 99 0 155/84(122) NSR 0 (11) 10(A) , No pain 14:17:40 74 17 100 16.3 144/84(113) NSR 0 (11) 10(A) , No pain 14:21:52 75 16 100 32.7 134/77(105) NSR 0 (11) 10(A) , No pain 14:26:06 76 17 100 39.4 126/72(101) NSR 0 (11) 10(A) , No pain 14:30:16 77 17 100 37.2 138/77(118) NSR 0 (11) 10(A) , No pain 14:34:29 77 10 100 36.4 134/70(100) NSR 0 (11) 10(A) , No pain Medications Time Medication Route Dose Verified Delivered Reason Notes Effectiveness by by 14:07:53 Oxygen etCO2 2 Feroz Matthew Per physician Nasal l/min Adela Gross RN cannula 14:08:01 Heparin Flush added 2 Feroz Matthew used for Bag to bags Adela Gross RN procedure (1000units/500ml field NS) 14:08:08 0.9% NaCl I.V. 100 Feroz Matthew Per physician ml/hr Adela Gross RN 14:09:56 Fentanyl I.V. 50 Feroz Matthew for sedation mcg Adela Gross RN 14:10:03 Versed I.V. 1 mg Feroz Matthew for sedation Adela Gross RN 14:12:45 Fentanyl I.V. 50 Feroz Matthew for sedation mcg Tauth MD Gross RN 14:12:49 Versed I.V. 1 mg Feroz Matthew for sedation Adela Gross RN 14:14:48 Heparin Bolus I.V. 4000 Feroz Matthew for units Adela Gross RN anticoagulation Procedure Log Time Note 13:30:48 Ilya Cabrales RT(R) sent for patient. Start room use. 13:44:23 Time tracking: Regular hours (M-F 7:00 - 5:00) 13:44:26 Plan of Care:Hemodynamics will remain stable., Cardiac rhythm will remain stable., Comfort level will be maintained., Respiratory function will remain adequate., Patient/ family verbilizes understanding of procedure., Procedure tolerated without complication., Recovers from procedure without complications.. 13:44:28 Signed procedure consent form obtained from patient. 13:55:08 Patient received from Pre/Post Procedure Room to CCL 1 Alert and oriented. Tansferred to table in Supine position. 13:55:09 Correct patient and procedure confirmed by team. 13:55:09 Warm blankets applied, and maya hugger turned on for patient comfort. 14:03:46 ECG and BP/O2 sat monitors applied to patient. 14:03:47 Vital chart was started 14:03:51 Baseline sample Acquired. 14:03:56 Rhythm: sinus rhythm 14:04:09 Full Disclosure recording started 14:04:57 H&P Date Dictated: 08/16/2018 Within 30 days and on chart., New H&P dictated by physician.. 14:04:58 Pre-procedure instructions explained to patient. 14:04:58 Pre-op teaching completed and patient verbalized understanding. 14:05:00 Family in patients room. 14:05:01 Patient NPO since Midnight. 14:05:03 Is the patient allergic to Iodine/contrast media? No. 14:06:36 Is patient on blood thinner?Yes 14:06:40 ACC The patient was administered the following blood thiners within the last 24 hours: ACCPlavix 14:06:48 Patient diabetic? No. 14:06:52 Snore? No 14:06:55 Previous problem with sedation/anesthesia? No ? 14:06:57 Sleep apnea? No 14:06:59 Deviated septum? No 14:06:59 Opens mouth fully? Yes 14:07:00 Sticks out tongue? Yes 14:07:02 Airway obstruction? No ? 14:07:05 Dentures? Yes OUT 14:07:09 Pre procedure: right dorsailis pedis pulse 1+ Palpable, but thready & weak; easily obliterated 14:07:17 Patient pain scale 0/10 ?. 14:07:26 IV patent on arrival in right forearm with 0.9% NaCl at [facility]. 14:07:27 Lab results completed and on chart. 14:07:31 Right groin area was prepped with chlora-prep and draped in sterile fashion 14:07:32 Alarms reviewed by R. N. 14:07:33 Sharps counted by scrub and verified by R.N. 14:07:53 Oxygen 2 l/min etCO2 Nasal cannula was administered by Vipul Gross RN; Per physician; 14:08: Heparin Flush Bag (1000units/500ml NS) 2 bags added to field was administered by Vipul Gross RN; used for procedure; 14:08:08 0.9% NaCl 100 ml/hr I.V. was administered by Vipul Gross RN; Per physician; 14:09:20 --------ALL STOP TIME OUT------ 14:09:21 Final Timeout: patient, procedure, and site verified with staff and physician. All members of the team are in agreement. 14:09:24 Right groin site verified by team. 14:09:26 Physical assessment completed. ASA score P 2 - A patient with mild systemic disease as per Feroz Chapman MD. 14:09:30 Sedation plan: IV Moderate Sedation Medication:Versed, Fentanyl 14:09:56 Fentanyl 50 mcg I.V. was administered by Vipul Gross RN; for sedation; 14:10:03 Versed 1 mg I.V. was administered by Vipul Gross RN; for sedation; 14:12:45 Fentanyl 50 mcg I.V. was administered by Vipul Gross RN; for sedation; 14:12:49 Versed 1 mg I.V. was administered by Vipul Gross RN; for sedation; 14:13:39 Procedure started. 14:13:41 Local anesthetic to right femoral artery with Lidocaine 2% by Feroz Chapman MD.INITIAL ACCESS ONLY 14:13:50 Use device set Femoral Dx 14:14:07 Tegaderm 4 x 4 (1626W) opened to sterile field. 14:14:08 ACIST Hand Control (54408) opened to sterile field. 14:14:09 ACIST Manifold (29472) opened to sterile field. 14:14:10 ACIST Syringe (92295) opened to sterile field. 14:14:10 Bag Decanter (2002S) opened to sterile field. 14:14:11 Medline Cath Pack ([id number]) opened to sterile field. 14:14:12 DIAGNOSTIC WIRE .035 260cm J wire (886304) opened to sterile field. 14:14:48 Heparin Bolus 4000 units I.V. was administered by Vipul Gross RN; for anticoagulation; 14:15:14 SHEATH 6FR Destination (RSR01) opened to sterile field. 14:15:23 SHEATH Prelude 6Fr 0.035 (WGL-2G-90-035) opened to sterile field. 14:15:30 GLIDE WIRE Super Stiff Angled 260cm (MU2331) opened to sterile field. 14:15:43 A 6 Fr Short sheath was inserted into the Right Femoral artery 14:15:58 A DIAGNOSTIC IMT 5Fr Catheter ([id number]) was advanced over the wire and used for Procedure. 14:16:30 Glidewire advanced around the horn and down the left leg. 14:17:17 Catheter removed over the wire. 14:17:20 Sheath upsized to a 6 Fr Long. 14:17:22 Wire removed. 14:17:27 Left leg angiography performed. 14:18:12 CHOICE PT Extra Support J 300cm guide wire ([id number]) opened to sterile field. 14:18:51 INFLATOR Merit BasixCompak (CK4122) opened to sterile field. 14:19:19 CPTXS wire advanced. 14:19:23 Wire advanced across lesion. 14:20:14 The SABER 6.0 x 6 x 150 balloon ([id number]) was advanced and then removed because of failure to cross lesion 14:21:17 Inflate balloon Inflation number: 1 A EMERGE OTW 3.0 x 30 balloon ([id number]) was prepped and advanced across the Mid Superficial Femoral, Left, then inflated to 21 KINA for 0:10 (min:sec). 14:21:44 Multiple inflations made 21 Atms. 14:22:28 Balloon removed over the wire. 14:22:46 Inflate balloon Inflation number: 2 A SABER 6.0 x 6 x 150 balloon ([id number]) was prepped and advanced across the Mid Superficial Femoral, Left, then inflated to 9 KINA for 0:10 (min:sec). 14:24:53 Balloon removed over the wire. 14:25:18 SMART 6 x 100 x 120 stent ([id number]) was deployed across Mid Superficial Femoral, Left . 14:25:20 Stent catheter was removed intact over wire. 14:26:24 Inflation number: 3 The SABER 6.0 x 6 x 150 balloon ([id number]) was reinflated across the Mid Superficial Femoral, Left, to 11 KINA for 0:10 (min:sec). 14:27:20 Multiple inflations made at 11 Atms. 14:27:28 EXOSEAL 6Fr (EX600) opened to sterile field. 14:28:19 Balloon removed over the wire. 14:28:20 Wire removed. 14:28:43 Sheath upsized to a 6 Fr Short. 14:28:43 Sheath removed intact; hemostasis achieved with Exoseal to the Right Femoral artery. 14:28:45 Procedure ended.(Physican Out) 14:31:29 Fluoroscopy time 04.30 minutes. 14:31:33 Flurop Dose total: 33 14:31:33 Fluoroscopy dose: 33 mGy 14:31:36 Contrast amount:Isovue 300 52ml. 14:32:53 Sharps counted by scrub and verified by R.N. 14:32:54 Insertion/operative site no bleeding no hematoma. 14:32:56 Post Procedure Pulses reassessed and unchanged 14:32:59 Post-procedure physical assessment completed. ASA score P 2 - A patient with mild systemic disease as per Feroz Chapman MD. 14:33:01 Post procedure rhythm: unchanged. 14:33:04 Estimated blood loss: 10 ml 14:33:06 Post procedure instruction explained to patient.Patient verbalizes understanding. 14:33:07 Patient needs reinforcement of post procedure teaching. 14:33:22 Procedure type changed to Cath procedure, Peripheral vascular Intervention, Stent, Stent-Fem/Popw/plasty 14:36:48 Procedure and supply charges have been captured, reviewed, submitted and are correct. 14:36:52 Procedure Complication : No complications 14:37:13 Vital chart was stopped 14:37:13 See physician's report for complete and final results. 14:37:15 Report given to Pre/Post Procedure Room. 14:37:18 Patient transfered to Pre/Post Procedure Room with Stretcher. 14:37:21 Procedure ended. 14:37:21 Full Disclosure recording stopped 14:37:25 End room use (Document Last) Intervention Summary Intervention Notes Time ActionType Lesion and Equipment Action# Pressure Duration Attributes Used 14:20:14 Discard SABER 6.0 x Balloon 6 x 150 balloon ([id number]) 14:21:17 Inflate Mid EMERGE OTW 1 21 00:10 balloon Superficial 3.0 x 30 Femoral, balloon Left ([id number]) 14:22:46 Inflate Mid SABER 6.0 x 2 9 00:10 balloon Superficial 6 x 150 Femoral, balloon Left ([id number]) 14:25:18 Deploy self Mid SMART 6 x 1 expanding Superficial 100 x 120 stent Femoral, stent Left ([id number]) 14:26:24 Reinflate Mid SABER 6.0 x 3 11 00:10 balloon Superficial 6 x 150 Femoral, balloon Left ([id number]) Device Usage Item Name Manufacture Quantity Catalog Number Hospital Part Current Minimal Lot# / Charge Number Stock Stock Serial# Code Tegaderm 4 x 4 3M 1 1626W [id number] [id number] 708357 5 (1626W) ACIST Hand Acist 1 80641 065691 958229 313811 5 Control (65910) [employer] Inc ACIST Manifold Acist 1 46084 482136 850590 080932 5 (14482) [employer] Inc ACIST Syringe Acist 1 34213 635754 349616 695862 20 (40822) Medical Systems Inc Bag Decanter Microtek 1 2001S 628827 12988 071904 5 (2001S) Medical Inc. Medline Cath Cardinal 1 [id number] 733504 95714 537751 5 [facility] ([id number]) DIAGNOSTIC WIRE St Hema 1 096051 422584 679811 359311 30 .035 260cm J wire (347500) SHEATH 6FR Terumo 1 RSR01 105924 60234 005619 5 Destination (RSR01) SHEATH Prelude Merit 1 EDX-5C-24-35 459058 5901438 943601 5 6Fr 0.035 Medical (WIH-4P-94-035) GLIDE WIRE Terumo 1 NU9982 921355 242425 239697 5 Super Stiff Angled 260cm (LE0769) DIAGNOSTIC IMT Fillmore 1 [id number] 202999 937070 84880 5 5Fr Catheter Scientific ([id number]) CHOICE PT Extra Fill[place] 1 [id number] 046901 842150 079392 5 Support J 300cm Scientific guide wire ([id number]) INFLATOR Merit Merit 1 KC4498 855240 385969 993559 15 BasixTSCA (IW2475) SABER 6.0 x 6 x Cardinal 1 [id number] 419330 499637 934928 5 150 balloon Health ([id number]) EMERGE OTW 3.0 Fillmore 1 [id number] 478488 082624 980597 5 [id number] x 30 balloon Scientific ([id number]) SMART 6 x 100 x Cardinal 1 [id number] 584171 685363 0 [id number] 120 stent Health ([id number]) EXOSEAL 6Fr Cardinal 1 EX600 405026 100856 931500 10 (EX600) Health Signature [facility] [place] Stage Time Signature Unsigned Intra-Procedure 08/16/2018 Ilya Cabrales 2:38:48 PM RT(R) Signatures Monitor : Ilya Cabrales RT Signature : Date : Time : [place] [id number] [place] [address]
--- NOTE | ~2018-08-16 | HP ---
PATIENT: JAEL CHEN MEDICAL RECORD: [id number] ACCOUNT: [id number] LOCATION:DENICE : 46 ADMISSION DATE: 08/16/18 PCP: JOON ASENCIO MD HISTORY AND PHYSICAL EXAMINATION Date Of Service: 08/16/2018 DIAGNOSES: 1. Claudication. 2. Peripheral vascular disease. 3. Total occlusion of left SFA. HISTORY OF PRESENT ILLNESS: Mr. Chen has peripheral vascular disease and known total occlusion of left SFA. He has claudication of the left leg, he is now brought back for attempted transcatheter revascularization of this total occlusion. PHYSICAL EXAMINATION: GENERAL APPEARANCE: Well-nourished, well-developed, appears stated age. Level of distress, comfortable. PSYCHIATRIC: Mental status, alert, normal affect. Orientation, oriented to time, place and person. EYES: Lids and conjunctiva, noninjected. No discharge, no pallor. ENT: Lips, teeth, gums, normal dentition. Oropharynx, no cyanosis, no pallor. NECK: Carotid arteries, bilateral normal upstroke, no bruits, no thrills. JUGULAR VEINS: No jugular venous pressure or distention. CERVICAL LYMPH NODES: Nontender, nonenlarged. THYROID: Not enlarged. Nontender. No nodules. LUNGS: Respiratory effort, unlabored. CHEST: Normal curvature. No thoracic deformity. No chest wall tenderness. Percussion, resonant. Auscultation, clear. No wheezes, no rales, no rhonchi. CARDIOVASCULAR: Precordial exam, nondisplaced. No heaves or pericardial thrills. Rate and rhythm, regular. Heart sounds, normal S1, normal S2. No S3, no gallop, no rub. Systolic murmur, not heard. Diastolic murmur, not heard. EXTREMITIES: No cyanosis, no edema. Peripheral pulses, full and equal in all extremities, except as noted. No bruits appreciated. ABDOMEN: Soft, nondistended. Normal aorta. No bruit. Nontender. No masses. Liver, nontender, no hepatomegaly. Spleen, nontender, no splenomegaly. MUSCULOSKELETAL: No joint tenderness. No joint swelling. No erythema. NEUROLOGICAL: Normal gait, normal strength, normal tone. SKIN: Warm and dry. REVIEW OF SYSTEMS: The patient reports easy bruising but reports no swollen glands. The patient reports no fever, no night sweats, no significant weight gain, no significant weight loss. No significant exercise tolerance. The patient reports no dry eyes, no irritation, no vision change. Patient reports no difficulty hearing and no ear pain. Patient reports no frequent nose bleeds or nose and sinus problems. Patient reports on arm pain on exertion. No shortness of breath while lying down. No history of heart murmur. Patient reports no cough, no wheezing or coughing up blood. Patient reports no abdominal pain, no vomiting. Normal appetite. No diarrhea and not vomiting blood. No nausea and no constipation. Patient reports no incontinence. No difficulty urinating. No hematuria. No increased frequency. Patient reports no muscle aches. No weakness, no arthralgias, no back pain. No swelling of the extremities. Patient reports no abnormal mole, no jaundice, no rashes. Reports HISTORY AND PHYSICAL [id number] APRILJAEL no loss of consciousness. No weakness and no numbness. No seizures, dizziness, or headaches. The patient reports no depression, no sleep disturbance, feeling safe in a relationship and no alcohol abuse. Patient reports on fatigue. Reports no runny nose or sinus pressure. No itching, no hives, and no frequent sneezing. OVERALL IMPRESSION: Claudication symptomatology with known occlusion of the left SFA. We will attempt transcatheter revascularization of this segment. TRANSINT:[id number] Voice Confirmation ID: [id number] DOCUMENT ID: [id number] JOON ASENCIO MD at 0924 CC: [id number] DICTATION DATE: 08/16/18 1035 EQUIPMENT ASSOCIATE: 08/16/18 1212 DEP CLI 08/16/18 [place] [id number] [place] [id number]
--- NOTE | ~2018-08-16 | OP ---
PATIENT NAME: JAEL CHEN MEDICAL RECORD: [id number] :46 LOCATION:D.CAT ADMISSION DATE: SURGEON: JOON ASENCIO MD DATE OF OPERATION: 08/16/2018 PROCEDURES: 1. Stent placement SFA, left. 2. ICE MAKER SFA, left. 3. Unilateral extremity angiography. INDICATION: Claudication and peripheral vascular disease. PROCEDURE IN DETAIL: After informed consent was obtained and after a detailed description of risks, benefits as well as alternative therapies, the patient elected to proceed with angiogram and angioplasty. The right femoral area was prepped and draped in normal sterile fashion. Right femoral artery was cannulated via modified Seldinger technique with placement of a 6-Hebrew rhlfpn-ffg-[id number] sheath. FINDINGS: The left SFA has a total occlusion in the mid vessel that is approximately 80 mm. This was addressed with a Choice PT extra support 3.0 coronary balloon, 6.0 peripheral balloon yielding suboptimal result requiring stenting. Stenting was undertaken with a 6 x 100 SMART stent. Result was 0% residual stenosis. OVERALL IMPRESSION: Successful percutaneous transluminal angioplasty stent of the left superficial femoral artery going from 100% chronic total occlusion to 0% residual stenosis. TRANSINT:[id number] Voice Confirmation ID: [id number] DOCUMENT ID: [id number] JOON ASENCIO MD at 0924 CC: [id number] DICTATION DATE: 08/16/18 1432 CLINIC ASSISTANT: 08/16/18 1439 DEP CLI 08/16/18 [place] [address]
[~2018-08-16 08:21] MED LIST changes: +ATROPINE; +CLARITIN 10 MG10 MG PO; +CYCLOBENZAPRINE5 MG PO; +DIPHENOXYLATE; +FUROSEMIDE20 MG PO; +PERCOCET 7.5/321 TAB PO; +PHENERGAN25 M1 PO; +ZOFRAN ODT4 MG/UDTAB PO
[2018-08-16 10:28] VITALS: BP 129/72; Ht 177.8 cm; Wt 70.5 kg
[2018-08-16 11:42] LABS: BASOPHILS 0.5 % (0-2); EOSINOPHILS 1.7 % (0-7); HEMATOCRIT 44.7 % (42.0-54.0); HEMOGLOBIN 13.6 g/dL (13.5-17.5); IMMATURE GRANULOCYTES 0.2 % (0-5); MCH 29.9 pg (26.0-34.0); MCHC 30.4 g/dL (31.0-37.0); MCV 98.2 fL (80.0-100.0); MEAN PLATELET VOLUME 11.8 fL (7.4-10.4); NEUTROPHILS 56.6 % (40-80); RBC 4.55 10x6/uL (4.20-6.10); RDW 17.2 % (11.5-14.5); WBC 4.2 10x3/uL (4.8-10.8)
[2018-08-16 11:44] LABS: PLATELET COUNT 132 10x3/uL (130-400)
[2018-08-16 11:50] LABS: ANION GAP 17.2 mmol/L (8-16); CALCIUM 8.9 mg/dL (8.5-10.1); CARBON DIOXIDE 27.1 mmol/L (21.0-32.0); CREATININE - SERUM 9.5 mg/dL (0.6-1.3); POTASSIUM - SERUM 5.3 mmol/L (3.5-5.1)
== END | disposition home or self-care (01) ==
LOC: D.CATH 08:21
PROVIDERS: Internal Medicine Interventional Cardiology
DX: I70.212 Atherosclerosis of native arteries of extremities with intermittent claudication, left leg (principal); I70.92 Chronic total occlusion of artery of the extremities; Z01.812 Encounter for preprocedural laboratory examination

== ENCOUNTER 2019-09-11 01:01 | Inpatient (IN) | payer MEDICARE ==
[~2019-09-11] VITALS: Ht 177.8 cm; Wt 64.1 kg
--- NOTE | ~2019-09-11 | HEMODYNAMI ---
PATIENT:JAEL CHEN MEDICAL RECORD: [id number] : 46 LOCATION:[facility].213 ADMISSION DATE: 09/11/19 Generatedon:09/11/201914:52 Patient name: JAEL CHEN Patient #: [id number] SSN: : 1950 Date of study: 09/11/2019 Page: Of Hemodynamic Procedure Report Patient Data Patient Demographics Procedure consent was obtained First Name: JAEL Gender: Male Last Name: APRIL : 1950 Patient #: [id number] Age: 68 year(s) Race: Black Additional ID: [id number] Contact details [address]: [address] [place] [address] [address] State: [place] City: [place] Zip code: [address] Admission Admission Data Admission Date: 09/11/2019 Admission Time: 3:22 Room #: 2131 Procedure Procedure Types Cath Procedure Diagnostic Procedure LHC LHC w/Coronaries w/Grafts FFR/IVUS FFR Initial Sedation Charges Moderate Sedation up to 30 minutes PCI Procedure AMI/SVG/CELERY PACKER PTCA or Stent SVG-BMS/ANNALEE Initial Procedure Description Procedure Date Procedure Date: 09/11/2019 Procedure Start Time: 14:26 Procedure End Time: 14:50 Procedure Staff Name Function Feroz Chapman MD Performing Physician Ann Marie Brock RT Monitor Scarlett Day RT Scrub Noemi Bautista RN Nurse Procedure Data Cath Procedure Fluoroscopy Diagnostic fluoroscopy Total fluoroscopy Time: 5.3 time: 5.3 min min Diagnostic fluoroscopy Total fluoroscopy dose: 566 dose: 566 mGy mGy Contrast Material Contrast Material Type Amount (ml) Isovue 300 85 Entry Location Entry Primary Successful Side Size Upsize Upsize Entry Closure Succes sful Closure Location (Fr) 1 (Fr) 2 (Fr) Remarks Device Remarks Femoral Right 5 Fr 6 Fr Exoseal artery Short Estimated blood loss: 5 ml Diagnostic catheters Device Type Used For End Catheter Placement MULTIPACK Pigtail 5 Fr LV Angiography catheter DIAGNOSTIC JL 5 5Fr Left Coronary catheter ([id number]) Angiography DIAGNOSTIC IM 5Fr Multi-vessel catheter ([id number]) Angiography Procedure Complications No complications Procedure Medications Medication Administration Route Dosage 0.9% NaCl I.V. Oxygen etCO2 Nasal cannula 2 l/min Lidocaine 2% added to field 20 Heparin Flush Bag added to field 2 bags (1000units/500ml NS) Versed I.V. 2 mg Fentanyl I.V. 50 mcg Heparin Bolus I.V. 4000 units Hemodynamics Rest Heart Rate: 63 (bpm) Pressure Samples Time Site Value (mmHg) Purpose Heart Use Rate(bpm) 14:28 LV 82/2,2 Snapshot 60 Snapshots Pre Cath Intra NCS Post Cath Vital Signs Time Heart Resp SPO2 etCO2 NIBP Rhythm Pain Sedation Rate (ipm) (%) (mmHg) (mmHg) Status Level (bpm) 13:57:07 64 13 100 29.2 121/73(91) NSR 0 (11) 10(A) , No pain 14:01:15 62 14 100 34.5 127/67(98) NSR 0 (11) 10(A) , No pain 14:05:29 59 10 100 19.5 105/60(80) SB 0 (11) 10(A) , No pain 14:09:31 58 8 100 35.2 108/70(86) SB 0 (11) 9(A) , No pain 14:13:36 61 8 100 26.2 110/63(86) NSR 0 (11) 9(A) , No pain 14:17:42 60 9 100 28.5 103/63(92) NSR 0 (11) 9(A) , No pain 14:21:48 62 13 100 32.9 107/60(82) NSR 0 (11) 9(A) , No pain 14:25:52 59 9 100 31.4 110/67(82) SB 0 (11) 9(A) , No pain 14:29:56 60 8 100 35.2 111/68(84) NSR 0 (11) 9(A) , No pain 14:34:03 57 18 100 33.7 113/62(89) SB 0 (11) 9(A) , No pain 14:38:09 56 10 100 35.2 114/65(90) SB 0 (11) 9(A) , No pain 14:42:17 57 12 100 34.5 111/63(83) SB 0 (11) 10(A) , No pain 14:46:23 55 9 100 33 108/68(86) SB 0 (11) 10(A) , No pain Medications Time Medication Route Dose Verified Delivered Reason Notes Effectiveness by by 13:56:06 0.9% NaCl I.V. kvo Feroz Noemi used for Adela Bautista monitor worker 13:56:13 Oxygen etCO2 2 Feroz Noemi used for Nasal l/min Adela Bautista procedure cannula RN 13:56:20 Lidocaine 2% added 20ml Ferozaroldo Villanuevarey for local to vial Adela Chapman MD anesthetic field 13:56:24 Heparin Flush added 2 Feroz Feroz used for Bag to bags Adela Chapman MD procedure (1000units/500ml field NS) 14:04:30 Versed I.V. 2 mg Feroz Noemi for sedation Adela Bautista RN 14:04:41 Fentanyl I.V. 50 Feroz Noemi for sedation mcg Adela Bautista RN 14:39:21 Heparin Bolus I.V. 4000 Feroz Noemi for verif ied units Adela Bautista anticoagulation with Dr. LENA Chapman Procedure Log Time Note 13:40:46 Scarlett Day RT(R) sent for patient. Start room use. 13:51:44 Procedure Status Urgent Heart Cath (IP). 13:51:58 Time tracking: Regular hours (M-F 7:00 - 5:00) 13:52:02 Plan of Care:Hemodynamics will remain stable., Cardiac rhythm will remain stable., Comfort level will be maintained., Respiratory function will remain adequate., Patient/ family verbilizes understanding of procedure., Procedure tolerated without complication., Recovers from procedure without complications.. 13:52:06 Patient received from Med II to CCL 2 Alert and oriented. Tansferred to table in Supine position. 13:52:08 Signed procedure consent form obtained from patient. 13:52:09 Warm blankets applied, and maya hugger turned on for patient comfort. 13:52:10 Correct patient and procedure confirmed by team. 13:52:11 ECG and BP/O2 sat monitors applied to patient. 13:55:55 Vital chart was started 13:56:06 0.9% NaCl kvo I.V. was administered by Noemi Bautista RN; used for procedure; Verbal order read back and verified. 13:56:13 Oxygen 2 l/min etCO2 Nasal cannula was administered by Noemi Bautista RN; used for procedure; Verbal order read back and verified. 13:56:20 Lidocaine 2% 20ml vial added to field was administered by Feroz Chapman MD; for local anesthetic; Verbal order read back and verified. 13:56:24 Heparin Flush Bag (1000units/500ml NS) 2 bags added to field was administered by Feroz Chapman MD; used for procedure; Verbal order read back and verified. 13:58:33 Baseline sample Acquired. 13:58:37 Rhythm: sinus rhythm 13:58:39 Full Disclosure recording started 13:58:42 H&P Date Dictated: 09/11/2019 New H&P dictated by physician.. 13:58:43 Pre-procedure instructions explained to patient. 13:58:43 Pre-op teaching completed and patient verbalized understanding. 13:58:45 Family in patients room. 13:58:47 Patient NPO since Midnight. 13:58:49 Is the patient allergic to Iodine/contrast media? No. 13:58:50 Was the patient premedicated? No 13:58:51 Is patient on blood thinner?No 13:58:52 Patient diabetic? No. 13:58:55 Previous problem with sedation/anesthesia? No ? 13:58:56 Snore? Yes 13:58:57 Sleep apnea? No 13:58:58 Deviated septum? No 13:58:59 Opens mouth fully? Yes 13:59:00 Sticks out tongue? Yes 13:59:04 Airway obstruction? No ? 13:59:09 Dentures? No ? 13:59:12 Pre procedure: right dorsailis pedis pulse 1+ Palpable, but thready & weak; easily obliterated 13:59:15 Pre procedure: left dorsailis pedis pulse 1+ Palpable, but thready & weak; easily obliterated 13:59:17 Patient pain scale 0/10 ?. 13:59:36 IV patent on arrival in right hand with 0.9% NaCl at KVO. 13:59:39 Lab results completed and on chart. 13:59:46 Stress Test: no; N/A ? 14:00:00 Risk of Mortality: ? 14:01:45 Risk of Mortality: 4.8 14:01:49 Risk of blood transfusion: 4.6 14:01:53 Risk of VASU: 17.7 14:02:10 Right groin area was prepped with chlora-prep and draped in sterile fashion 14:02:11 Alarms reviewed by R. N. 14:02:11 Sharps counted by scrub and verified by R.N. 14:02:13 Physician arrived 14:02:13 --------ALL STOP TIME OUT------ 14:02:14 Final Timeout: patient, procedure, and site verified with staff and physician. All members of the team are in agreement. 14:02:15 Right groin site verified by team. 14:02:18 Fire Safety Assessment: A--An alcohol-based skin anteseptic being used preoperatively., C--Open oxygen or nitrous oxide is being used., D--An ESU, laser, or fiber-optic light is being used. 14:02:20 Physical assessment completed. ASA score P 2 - A patient with mild systemic disease as per Feroz Chapman MD. 14:02:24 5) <15 or on dialysis Very severe, or end stage kidney failure. 14:03:30 Maximum allowable contrast dose (3.7 X eGFR X 0.75)16.65 ml. 14:03:34 Sedation plan: IV Moderate Sedation Medication:Versed, Fentanyl 14:04:17 Use device set Femoral Dx 14:04:18 ACIST Syringe (14599) opened to sterile field. 14:04:19 Bag Decanter (2001S) opened to sterile field. 14:04:19 Medline Cath Pack ([id number]) opened to sterile field. 14:04:20 ACIST Hand Control (37740) opened to sterile field. 14:04:21 ACIST Manifold (08225) opened to sterile field. 14:04:21 DIAGNOSTIC Multipack 5Fr catheter set (CM1287) opened to sterile field. 14:04:21 Tegaderm 4 x 4 (1626W) opened to sterile field. 14:04:22 SHEATH 5FR Herndon (NHH675) opened to sterile field. 14:04:23 EMERALD Guide Wire (617-818) opened to sterile field. 14:04:30 Versed 2 mg I.V. was administered by Noemi Bautista RN; for sedation; Verbal order read back and verified. 14:04:41 Fentanyl 50 mcg I.V. was administered by Noemi Bautista RN; for sedation; Verbal order read back and verified. 14:23:20 Procedure started. 14:26:44 Local anesthetic to right femoral artery with Lidocaine 2% by Feroz Chapman MD.INITIAL ACCESS ONLY 14:26:54 A 5 Fr sheath was inserted into the Right Femoral artery 14:27:36 A MULTIPACK Pigtail 5 Fr catheter was advanced over the wire and used for LV Angiography. 14::41 Zero performed for pressure channel P1 14::41 LV hemodynamics recorded. 14::42 LV gram done using KOTHARI 14::44 Injector settings: Ml/sec: 5, Volume: 15, 14:28:51 EF : 50 % 14:29:29 Catheter removed. 14:29:47 A DIAGNOSTIC JL 5 5Fr catheter ([id number]) was advanced over the wire and used for Left Coronary Angiography. 14:29:56 LCA angiography performed. 14:29:59 Injector settings: Ml/sec: 3, Volume: 6, 14:30:01 Catheter removed. 14:30:12 A DIAGNOSTIC IM 5Fr catheter ([id number]) was advanced over the wire and used for Multi-vessel Angiography. 14:30:22 VARGAS angiography performed. 14:31:46 SVG to Circ angiography performed. 14:33:11 GUIDE 6FR AR 2.0 catheter ([id number]) opened to sterile field. 14:33:12 SHEATH 6FR Herndon (EMN845) opened to sterile field. 14:33:15 INFLATOR Merit BasixCompak (MX5939) opened to sterile field. 14:35:07 ACCDominant side:Left 14:35:08 Catheter removed. 14:35:09 Proceeding to intervention. 14:35:16 Sheath upsized to a 6 Fr Short. 14:35:24 6 Fr ar 2 guide catheter was inserted over the wire 14:35:29 FFR/IFR wire advanced. 14:35:31 Baseline FFR 1. 14:37:43 mCirc lesion measured at 0.46 with IFR 14:39:21 Heparin Bolus 4000 units I.V. was administered by Noemi Bautista RN; for anticoagulation; verified with Dr. Chapman Verbal order read back and verified. 14:39:22 ACC Pre-intervention MALI Flow is 3. 14:39:22 Pre PCI Site: Vein Graft mCirc has 70% stenosis. 14:39:40 Place stent Inflation Number: 1 A REGAN RX 4.0 x 12 stent ([id number]) was prepped and advanced across the Aorta Left -> Mid CX 70. The stent was deployed at 15 KINA for 0:10 (min:sec) 0. 14:39:46 Inflation number: 2 The stent balloon was then re-inflated across the Aorta Left -> Mid CX 0 to 15 KINA for 0:10 (min:sec) . 14:39:52 Inflation number: 3 The stent balloon was then re-inflated across the Aorta Left -> Mid CX to 17 KINA for 0:10 (min:sec) . 14:40:47 Stent catheter was removed intact over wire. 14:41:03 mCirc lesion measured at 0.91 with IFR 14:41:52 Post PCI Site: Vein Graft mCirc has 0% stenosis. 14:41:55 ACC Post-intervention MALI Flow is 3. 14:43:32 ACT drawn and resulted at 335 seconds. (normal therapeutic range 180-240 seconds). 14:43:34 Wire removed. 14:43:34 Guide catheter removed. 14:43:42 EXOSEAL 6Fr (EX600) opened to sterile field. 14:43:58 Sheath removed intact; hemostasis achieved with Exoseal to the Right Femoral artery. 14:44:02 Procedure ended.(Physican Out) 14:44:59 Fluoroscopy time 05.30 minutes. 14:45:04 Fluoroscopy dose: 566 mGy 14:45:04 Flurop Dose total: 566 14:45:20 Dose Area Product 70837 mGy/cm. 14:45:27 Contrast amount:Isovue 300 85ml. 14:45:30 Maximum allowable dose exceeded? Yes. 14:45:30 Sharps counted by scrub and verified by R.N. 14:45:32 Insertion/operative site no bleeding no hematoma. 14:45:35 Post-op/insertion site Right Femoral artery dressed using a 4 x 4 and Tegaderm. 14:45:38 Post procedure rhythm: unchanged. 14:45:41 Estimated blood loss: 5 ml 14:45:42 Post procedure instruction explained to patient.Patient verbalizes understanding. 14:45:42 Patient needs reinforcement of post procedure teaching. 14:46:06 Procedure type changed to Cath procedure, Diagnostic procedure, LHC, [facility] w/Coronaries w/Grafts, FFR/IVUS, FFR Initial, Sedation Charges, Moderate Sedation up to 30 minutes, PCI procedure, AMI/SVG/CELERY PACKER PTCA or Stent, SVG-BMS/ANNALEE Initial 14:46:08 Procedure and supply charges have been captured, reviewed, submitted and are correct. 14:46:12 Procedure Complication : No complications 14:46:15 Vital chart was stopped 14:46:19 [facility] Findings: MVD- PCI performed (see procedure note) 14:46:22 Operative report dictated upon procedure completion. 14:46:22 See physician's report for complete and final results. 14:46:24 Report given to [facility] II. 14:46:28 Patient transfered to Med II with Stretcher. 14:50:47 Procedure ended. 14:50:47 Full Disclosure recording stopped 14:50:57 ACC-PCI Only Patient was given prescriptions, or instructed by Feroz Chapman MD to start/continue the following medications upon discharge: Plavix 14:50:58 End room use (Document Last) 14:51:18 End room use (Document Last) 14:51:45 End room use (Document Last) Intervention Summary Intervention Notes Time ActionType Lesion and Equipment Used Action# Pressure Duration Attributes 14:39:40 Place stent Aorta Left REGAN RX 4.0 x 1 15 00:10 -> Mid CX 12 stent ([id number]) 14:39:46 Reinflate Aorta Left REGAN RX 4.0 x 2 15 00:10 stent -> Mid CX 12 stent balloon ([id number]) 14:39:52 Reinflate Aorta Left RGEAN RX 4.0 x 3 17 00:10 stent -> Mid CX 12 stent balloon ([id number]) Device Usage Item Name Manufacture Quantity Catalog [facility] Lot# / Number Charge Number Stock Stock Serial# Code ACIST Syringe Acist 1 29783 178863 630075 873291 20 (44916) Pirate Pay Bag Decanter Microtek 1 2001S 512935 78380 372881 5 (2001S) Medical Inc. Medline Cath Medline 1 [id number] 380333 97321 209128 5 Pack ([id number]) ACIST Hand Acist 1 82016 368421 186272 942039 5 Control Medical (84377) Systems Inc ACIST Manifold Acist 1 44495 909503 168157 113891 5 (95794) Medical Systems Inc DIAGNOSTIC Cardinal 1 PO1457 355302 39046 759353 30 Multipack 5Fr Health catheter set ([id number]) Tegaderm 4 x 4 3M 1 1626W 748582 900519 548786 5 (1626W) SHEATH 5FR Terumo 1 DFT204 577846 110858 153525 5 Herndon (JXQ275) EMERALD Guide Cardinal 1 502-455 068090 579027 436682 5 Wire (502-455) Health MULTIPACK Cardinal 1 255055 5 Pigtail 5 Fr Health catheter DIAGNOSTIC JL Cardinal 1 193452H 099838 830168 625561 5 5 5Fr catheter Health (801093T) DIAGNOSTIC IM Cardinal 1 [id number] 619013 289936 468612 5 5Fr catheter Health (185459E) GUIDE 6FR AR Medtronic 1 [id number] 726484 24788 980945 1 2.0 catheter (PG1TF69) SHEATH 6FR Terumo 1 QZQ310 046647 631097 271372 40 Herndon (TDP519) INFLATOR Merit Merit 1 CE3704 024073 118733 603570 15 [facility] (PB6255) REGAN RX 4.0 x Medtronic 1 [id number] 405168 8181835 690687 5 [id number] 12 stent ([id number]) EXOSEAL 6Fr Cardinal 1 EX600 722819 383065 775164 10 (EX600) Health Signature Audit [place] Stage Time Signature Unsigned Intra-Procedure 09/11/2019 Ann Marie Brock 2:51:18 PM RT(R) Intra-Procedure 09/11/2019 Noemi Bautista 2:51:45 PM RN Intra-Procedure 09/11/2019 Feroz Chapman 2:52:05 PM Signatures Performing Physician : Signature : Feroz Chapman MD Date : Time : Monitor : Ann Marie Vinod RT Signature : Date : Time : Nurse : Noemi Michele RN Signature : Date : Time : [address] [place] [address]
[~2019-09-11 01:01] MED LIST changes: +ASPIRIN81 MG PO; +CARAFATE1 G PO; +ISOSORBIDE MONO30 M1 PO; +MEGACE 20 MG TA20 MG PO; +METOPROLOL TART50 MG PO; +NITROQUICK0.4 MG SL; +RANITIDINE PO; +TYLENOL W/CODEI1 TAB PO; +ZYRTEC10 MG PO
[2019-09-11 02:04] LABS: CKMB 0.9 U/L (0.0-3.6); CREATINE KINASE 30 UL (21-232)
[2019-09-11 02:05] LABS: TROPONIN-I 0.088 ng/mL (0.000-0.060)
[2019-09-11 02:13] LABS: ANION GAP 17.5 mmol/L (8-16); CALCIUM 8.4 mg/dL (8.5-10.1); CARBON DIOXIDE 25.7 mmol/L (21.0-32.0); CREATININE - SERUM 10.6 mg/dL (0.6-1.3); POTASSIUM - SERUM 5.2 mmol/L (3.5-5.1)
[2019-09-11 02:41] LABS: APTT 29.2 SECONDS (22.8-39.4); INR 1.24 (0.85-1.17); PROTIME 15.1 SECONDS (11.6-15.0)
[2019-09-11 02:46] VITALS: BP 147/66
--- NOTE | 2019-09-11 04:25 | NUR ---
PT ARRIVED W/24 GA IV IN RIGHT HAND. NOTED ON ATTEMPTING TO FLUSH IV WAS NOT PATENT. DC'D W/DRESSING APPLIED.
[2019-09-11 04:39] VITALS: BP 149/86
[2019-09-11 05:22] VITALS: BP 176/86; BMI 21.7
--- NOTE | 2019-09-11 05:30 | NUR ---
RECIEVED REPORT FROM SHERRY IN ER. ARRIVED TO FLOOR IN W/C. TRANSFERED SELF TO BED WITH ASSIST. ALERT AND ORIENTED X4. ABLE TO ANSWER SOME QUESTIONS. DOES NOT KNOW HIS MEDICATION. SAID HIS SISTER GIVES THEM TO HIM. REQUESTERED A COPY OF MEDICATION LIST AND SAID HE WOULD TELL HER TO BRING ONE. DENIES ANY CP AT THIS TIME. NO TELEMETRY AVAILABLE. DENIES ANY NEEDS AT THIS TIME.
[2019-09-11 09:02] LABS: CREATINE KINASE 41 UL (21-232); TROPONIN-I 0.082 ng/mL (0.000-0.060)
[2019-09-11 09:32] VITALS: BP 151/91
--- NOTE | 2019-09-11 12:18 | NUR ---
DIALYSIS COORDINATOR: [facility] MWF @ 10:00. MET WITH PATIENT BEDSIDE IN ROOM. RECORDS TO HOME UNIT. RAJESH SCHULTE.
[2019-09-11 13:09] VITALS: BP 111/71
--- NOTE | 2019-09-11 13:16 | NUR ---
ALERT AND ORIENTED X4. LAYING IN BED. CONSENTS FOR TOUR AGENT SIGNED ON CHART. PRE-OP COMPLETE. VERIFY ZECHARIAH CHEN CAN RECIEVE INFORMATION PER PATIENT. SINUS RYTHM ON TELEMETRY. DENIES ANY NEEDS. CONTINUE PLAN OF CARE AND SAFETY PRECAUTIONS.
[2019-09-11 14:12] LABS: CKMB 1.4 U/L (0.0-3.6); CREATINE KINASE 30 UL (21-232); TROPONIN-I 0.076 ng/mL (0.000-0.060)
--- NOTE | 2019-09-11 15:07 | NUR ---
ARRIVE BACK TO ROOM VIA BED FROM BUILDING ENGINEER. RT GROIN DRESSING CLEAN DRY INTACT. FREE FROM BLEEDING. FREE FROM HEMATOMA. BP-95/54, HR-71. PULSE PALPABLE BILATERALLY. DENIES ANY NEEDS AT THIS TIME. CONTINUE PLAN OF CARE AND SAFETY PRECAUTIONS.
[2019-09-11 15:41] VITALS: Ht 177.8 cm; Wt 64.1 kg
[2019-09-11 19:48] LABS: CKMB 1.4 U/L (0.0-3.6); CREATINE KINASE 36 UL (21-232)
[2019-09-11 19:50] LABS: TROPONIN-I 0.088 ng/mL (0.000-0.060)
[2019-09-11 20:00] VITALS: BP 140/74
[2019-09-12] VITALS: BP 104/60
[2019-09-12 04:00] VITALS: BP 111/63
--- NOTE | 2019-09-12 07:00 | NUR ---
RECIEVE REPORT. ALERT AND ORIENTED X4. LAYING IN BED. SINUS RYTHM ON TELEMETRY. DENIES ANY NEEDS AT THIS TIME. CONTINUE PLAN OF CARE AND SAFETY PRECAUTIONS.
[2019-09-12 07:02] LABS: BASOPHILS 0.5 % (0-2); EOSINOPHILS 2.4 % (0-7); HEMATOCRIT 32.9 % (42.0-54.0); HEMOGLOBIN 10.3 g/dL (13.5-17.5); IMMATURE GRANULOCYTES 0.2 % (0-5); LYMPHOCYTES 24.2 % (15-50); MCH 29.3 pg (26.0-34.0); MCHC 31.3 g/dL (31.0-37.0); MCV 93.7 fL (80.0-100.0); MEAN PLATELET VOLUME 11.4 fL (7.4-10.4); MONOCYTES 13.3 % (2-11); NEUTROPHILS 59.4 % (40-80); RBC 3.51 10x6/uL (4.20-6.10); RDW 15.9 % (11.5-14.5); WBC 4.2 10x3/uL (4.8-10.8)
[2019-09-12 07:06] LABS: PLATELET COUNT 161 10x3/uL (130-400)
[2019-09-12 07:10] LABS: ANION GAP 16.4 mmol/L (8-16); CALCIUM 8.1 mg/dL (8.5-10.1); CARBON DIOXIDE 28.1 mmol/L (21.0-32.0); CREATININE - SERUM 9.1 mg/dL (0.6-1.3); POTASSIUM - SERUM 4.5 mmol/L (3.5-5.1)
[2019-09-12 08:41] VITALS: BP 114/70
[2019-09-12 13:00] VITALS: BP 115/60
--- NOTE | 2019-09-12 13:52 | NUR ---
ALERT AND ORIENTED X4. SITTING UP IN BED. DENIES PAIN OR SOB. DENIES ANY NEEDS AT THIS TIME. CONTINUE PLAN OF CARE AND SAFETY PRECAUTIONS.
[2019-09-12 16:38] VITALS: BP 102/55
--- NOTE | 2019-09-12 19:17 | NUR ---
EVENING ROUNDS COMPLETE. PT LAYING IN BED. AAOX4. NO SIGNS OF DISTRESS. CL IN REACH, BED IN LOWEST POSITION.
[2019-09-12 20:00] VITALS: BP 112/59
[2019-09-13] VITALS: BP 120/62
[2019-09-13 04:00] VITALS: BP 128/72
[2019-09-13 06:54] LABS: BASOPHILS 0.2 % (0-2); EOSINOPHILS 2.2 % (0-7); HEMATOCRIT 32.1 % (42.0-54.0); HEMOGLOBIN 10.2 g/dL (13.5-17.5); IMMATURE GRANULOCYTES 0.2 % (0-5); LYMPHOCYTES 22.6 % (15-50); MCH 29.6 pg (26.0-34.0); MCHC 31.8 g/dL (31.0-37.0); MEAN PLATELET VOLUME 10.7 fL (7.4-10.4); MONOCYTES 13.1 % (2-11); NEUTROPHILS 61.7 % (40-80); PLATELET COUNT 141 10x3/uL (130-400); RBC 3.45 10x6/uL (4.20-6.10); RDW 15.8 % (11.5-14.5); WBC 4.5 10x3/uL (4.8-10.8)
[2019-09-13 07:06] LABS: ANION GAP 19.5 mmol/L (8-16); CALCIUM 7.5 mg/dL (8.5-10.1); CARBON DIOXIDE 25.1 mmol/L (21.0-32.0); CREATININE - SERUM 11.3 mg/dL (0.6-1.3); POTASSIUM - SERUM 4.6 mmol/L (3.5-5.1)
[2019-09-13 07:42] LABS: PHOSPHOROUS 10.2 mg/dL (2.5-4.9)
[2019-09-13 09:43] VITALS: BP 116/69
[2019-09-13 13:43] VITALS: BP 128/69
--- NOTE | 2019-09-13 14:07 | CN ---
PATIENT NAME:JAEL CHEN MEDICAL RECORD: [id number] : 46 LOCATION:D. D.2131 ADMIT DATE: 09/11/19 ACCOUNT: [id number] CONSULTING PHYSICIAN: JOON ASENCIO MD REFERRING PHYSICIAN: OVI PACHECO MD DATE OF CONSULTATION: 09/11/2019 DIAGNOSES: 1. Non-Q-wave myocardial infarction. 2. Coronary artery disease. 3. Previous cardiac stent. 4. Hypertension. 5. Hyperlipidemia. 6. End-stage renal failure, dialysis. HISTORY OF PRESENT ILLNESS: Mr. Chen presents with chest pain, chest discomfort compatible with angina for the past week. It is a dull aching heaviness across the anterior chest, worse if he exerts himself. It has now progressed to episodes at rest. He is having 4/10 chest pain while I am speaking with him. He does have a history of coronary artery disease. Last cardiac intervention was in August of 2018. He has a history of end-stage renal failure on dialysis, hypertension, hyperlipidemia. PHYSICAL EXAMINATION: CONSTITUTIONAL/GENERAL APPEARANCE: Well nourished, well developed, appears stated age. EYES: Lids and conjunctivae noninjected. No discharge. No pallor. ENT: Lips within normal limit. No cyanosis. No pallor. NECK: Carotid arteries, bilateral normal upstroke. No bruits. No thrills. No jugular venous pressure or distention. CERVICAL LYMPH NODES: Nontender. Nonenlarged. THYROID: Not enlarged. No nodules. CARDIOVASCULAR: Precordial exam, nondisplaced. No heaves or pericardial thrills. Rate and rhythm, regular. Heart sounds, normal S1, normal S2. No S3, no gallop, no rub. Systolic murmur, not heard. Diastolic murmur, not heard. RESPIRATORY: Respiratory effort, unlabored. Normal curvature. No thoracic deformity. No chest wall tenderness. Percussion, resonant. Auscultation, clear. No wheezes, no rales, no rhonchi. ABDOMEN: Soft, nondistended, nontender. No abdominal pain, no vomiting and normal appetite. MUSCULOSKELETAL: No joint tenderness, normal gait, normal tone. SKIN: Warm and dry. OVERALL IMPRESSION: Chest pain, non-Q-wave myocardial infarction, continued pain. At this time, we will not increase his beta blockade as his heart rate is in the 60s. We will place him on a long-acting nitrate as well as a calcium channel isidro and proceed with coronary angiography. TRANSINT:[id number] Voice Confirmation ID: [id number] DOCUMENT ID: [id number] CONSULT REPORT [id number] JAEL CHEN, JOON ROBERSON at 1407 CC: [id number] DICTATION DATE: 09/11/19822 [place] COORDINATOR: 09/11/19 0936 ADM IN [place] [id number] [place] [id number]
--- NOTE | 2019-09-13 14:08 | OP ---
PATIENT NAME: JAEL CHEN MEDICAL RECORD: [id number] :46 LOCATION:D.M2 D.2131 ADMISSION DATE:09/11/19 SURGEON: JOON ASENCIO MD DATE OF OPERATION: 09/11/2019 PROCEDURES: 1. PTCA stent vein graft to left circumflex. 2. IFR. 3. Left heart catheterization. 4. Selective coronary angiography. 5. Left ventriculogram. 6. Vein graft angiography. 7. VARGAS angiography. INDICATION: Non-Q-wave myocardial infarction. PROCEDURE IN DETAIL: After informed consent was obtained and after a detailed description of risks, benefits as well as alternative therapies, the patient elected to proceed with angiogram and angioplasty. The right femoral area was prepped and draped in normal sterile fashion. Right femoral artery was cannulated via modified Seldinger technique with placement of 6-Kittitian sheath. All catheters exchanged through this sheath. FINDINGS: Left ventriculogram was performed in standard 30-degree KOTHARI view, reveals good cardiac wall motion, ejection fraction 50%. SELECTIVE CORONARY ANGIOGRAPHY: 1. Left main is with no significant angiographic disease. 2. Left anterior descending is totally occluded. 3. VARGAS to the LAD is widely patent. 4. Left circumflex is totally occluded. 5. Vein graft to circumflex is patent. There are previously placed stents. There is greater than 70% in-stent restenosis proximally. This is a change from previous angiography. IFR is abnormal. 6. The right coronary artery has previously placed stents. This is totally occluded. This has not changed from previous angiography. PTCA STENT OF LEFT CIRCUMFLEX VEIN GRAFT: Stent used was a 4.0 x 12 mm Kan. Result was 0% residual stenosis. An IFR normalized after the procedure. OVERALL IMPRESSION: Successful percutaneous transluminal coronary angioplasty stent of the vein graft to the left circumflex going from greater than 70% initial stenosis with an abnormal IFR to 0% residual stenosis and normalization of the IFR after the procedure. TRANSINT:[id number] Voice Confirmation ID: [id number] DOCUMENT ID: [id number] OPERATIVE REPORT [id number] JAEL CHEN, JOON ROBERSON at 1408 CC: [id number] DICTATION DATE: 09/11/19 1449 FINANCE CONSULTANT: 09/12/19 0022 [facility] IN [place] [id number] [place] [address]
[2019-09-13 18:31] VITALS: BP 128/65
--- NOTE | 2019-09-13 19:00 | NUR ---
PT SITTING UP IN BED WATCHING TV. EMPTIED 1500ML OF LIGHT PINK URINE FROM MEYERS BAG. VSS. DENIES PAIN OR NEEDS. BED IS LOW AND CALL LIGHT IN REACH.
--- NOTE | 2019-09-13 19:00 | NUR ---
PT RESTING WITH EYES CLOSED. AROUSES TO VOICE AND IS ALERT AND ORIENTED X 4. DEIES PAIN OR NEEDS. THE BED IS LOW AND CALL LIGHT IS WITHIN REACH.
[2019-09-13 20:00] VITALS: BP 119/65
[2019-09-14] VITALS: BP 102/68
[2019-09-14 04:00] VITALS: BP 126/72
[2019-09-14 06:40] LABS: BASOPHILS 0.2 % (0-2); EOSINOPHILS 2.4 % (0-7); HEMOGLOBIN 10.7 g/dL (13.5-17.5); IMMATURE GRANULOCYTES 0.2 % (0-5); LYMPHOCYTES 22.1 % (15-50); MCH 29.7 pg (26.0-34.0); MCHC 32.4 g/dL (31.0-37.0); MCV 91.7 fL (80.0-100.0); MEAN PLATELET VOLUME 10.7 fL (7.4-10.4); MONOCYTES 15.1 % (2-11); PLATELET COUNT 141 10x3/uL (130-400); RDW 15.5 % (11.5-14.5); WBC 4.3 10x3/uL (4.8-10.8)
--- NOTE | 2019-09-14 07:19 | NUR ---
REPORT RECEIVED. WILL CONTINUE WITH POC. PT CURRENTLY LYING ASLEEP ON LEFT SIDE. CALL LIGHT W/I REACH. RR EVEN AND UNLABORED ON RA. R.HAND PIV IS SALINE LOCKED. NO S/S OF DISTRESS NOTED. PT DENIES ANY NEEDS AT THIS TIME. WILL CTM.
[2019-09-14 07:25] LABS: ANION GAP 13.8 mmol/L (8-16); CALCIUM 7.9 mg/dL (8.5-10.1); CARBON DIOXIDE 29.8 mmol/L (21.0-32.0)
[2019-09-14 07:29] LABS: CREATININE - SERUM 7.7 mg/dL (0.6-1.3); PHOSPHOROUS 7.6 mg/dL (2.5-4.9); POTASSIUM - SERUM 3.6 mmol/L (3.5-5.1)
[2019-09-14 08:58] VITALS: BP 120/69
--- NOTE | 2019-09-14 13:12 | NUR ---
PT CURRENTLY RESTING AT THIS TIME. CALL LIGHT W/I REACH. PT DENIES ANY NEEDS. WILL CTM.
[2019-09-14 13:16] VITALS: BP 116/68
--- NOTE | 2019-09-14 14:14 | NUR ---
Nutrition Follow-up: Ate well with good appetite yesterday (09/13). Noted pt vomited breakfast this AM. Diet: Renal Wt: 152# Last BM: 09/13 Labs noted: K+ 3.6, Ca 7.9, PO4 7.6 Meds reviewed -Continue current diet as tolerated. -Offer Nepro with meals. -Rec PO4 binder with meals; noted Renvela on home med list. -RD following.
--- NOTE | 2019-09-14 14:23 | NUR ---
I have reviewed this patient and I concur with the Shift Assessment completed by the Licensed Practical Nurse today this shift.
--- NOTE | 2019-09-14 16:50 | MORECARE ---
CASE MANAGEMENT DISCHARGE SUMMARY PATIENT: JAEL CHEN UNIT: [id number] ADM DATE: 09/11/19 AGE: 68 : 48 SEX: M ROOM/BED: D.2131 AUTHOR: ALVARADO MORRIS PHYSICIAN: REFERRING PHYSICIAN: OVI PACHECO MD DATE OF SERVICE: 09/14/19 Discharge Plan Patient Name: JAEL CHEN Facility: [facility]:[place] : 1950 Planned Disposition: Home Anticipated Discharge Date: 09/14/19 Discharge Date: Expected LOS: 3 Initial Reviewer: [id number] Initial Review Date: 09/11/2019 Generated: 09/14/19 5:50 pm DCPIA - Discharge Planning Initial Assessment Updated by [email or web address]: Wilber Ch on 09/14/19 4:44 pm * Is the patient Alert and Oriented? Yes * How many steps to enter\\exit or inside your home? * PCP DR. LANDON IN [place] * Pharmacy [facility] IN [place] * Preadmission Environment Home with Family * ADLs Partial Dependent * Partial ADLs (Assistance needed) Medication Management * Equipment Walker * Other Equipment NO MEDICAL EQUIPMENT PROVIDER PREFERENCE * List name and contact numbers for known caregivers / representatives who currently or will assist patient after discharge: JOHANNE "SANTIAGO" SISTER CHEN, * Verbal permission to speak to the caregivers and representatives has been obtained from the patient. N/A * Community resources currently utilized Other * Please name any agencies selected above. OUTPATIENT DIAYSIS, [facility] IN [place], MWF, 1000AM, SISTER DRIVES * Additional services required to return to the preadmission environment? No * Can the patient safely return to the preadmission environment? Yes * Has this patient been hospitalized within the prior 30 days at any hospital? No Coverage Notice Reviewer: [id number] - Wilber Ch Notice Issued Date-Time: 09/14/2019 9:25 Notice Type: IM Discharge Notice Notice Delivered To: Patient Relationship to Patient: General Labor Forklift Operator Name: Delivery Method: HAND - Hand Delivered Constanza Days: Prior Verbal Notification: Recipient Understood Notice: Yes Recipient Signature: Yes Med Rec Note Co-signed by Attending: Coverage Notice Comment: Patient Name: JAEL CHEN Page 65444 at 1650 All edits/amendments must be made on the electronic document DICTATION DATE: 09/14/191649 LEARNING AND DEVELOPMENT ASSOCIATE: ESDRAS 09/14/191649 RPT#: [id number] DC DATE: STATUS: ADM IN [facility] [address] [place] [address] END OF REPORT
--- NOTE | 2019-09-14 17:02 | MORECARE ---
CASE MANAGEMENT DISCHARGE SUMMARY PATIENT: JAEL CHEN UNIT: [id number] ADM DATE: 09/11/19 AGE: 68 : 48 SEX: M ROOM/BED: D.2131 AUTHOR: ALEXANDRADOC PHYSICIAN: REFERRING PHYSICIAN: OVI PACHECO MD DATE OF SERVICE: 09/14/19 Discharge Plan Patient Name: JAEL CHEN Facility: [facility]:[place] : 1950 Planned Disposition: Home Anticipated Discharge Date: 09/14/19 Discharge Date: Expected LOS: 3 Initial Reviewer: [id number] Initial Review Date: 09/11/2019 Generated: 09/14/19 6:02 pm Comments DCP- Discharge Planning Updated by [email or web address]: Wilber Ch on 09/14/19 3:[address] Patient Name: JAEL CHEN Admission Status: ER Accout number: [id number] Admission Date: 09-11-2019 : 1950 Admission Diagnosis: Attending: OVI PACHECO Current LOS: 3 Anticipated DC Date: 09-14-2019 Planned Disposition: Home Primary Insurance: MEDICARE A & B Discharge Planning Comments: CM MET WITH PT IN ROOM TO DISCUSS DISCHARGE PLANNING AND NEEDS. PT REPORTS LIVING AT HOME INDEPENDENTLY; PT'S SISTER IS LIVING WITH HIM TO ASSIST WITH MEDICATIONS AND TRANSPORTATION. PT HAS A WALKER WITH NO MEDICAL EQUIPMENT PROVIDER PREFERENCE. PT HAS NO OUTSIDE SERVICES ASSISTING IN THE HOME. PT'S SISTER DRIVES PT TO AND FROM DIALYSIS IN [place] ON MWF, 1000AM SCHEDULE. CM DISCUSSED AVAILABILITY OF HOME HEALTH, REHAB SERVICES AND MEDICAL EQUIPMENT. PT DENIES DISCHARGE NEEDS, REPORTS HIS DAUGHTER'S BOYFRIEND WILL PICK HIM UP FOR DISCHARGE HOME. IMPORTANT MESSAGE FROM MEDICARE PROVIDED AND EXPALINED. PT PLANS TO DISCHARGE HOME WITH FAMILY ASSISTANCE, DENIES NEEDS AT THIS TIME. FAMILY TO TRANSPORT HOME. CM TO FOLLOW AND ASSIST IF NEEDED. Moveman: Wilber Ch DCPIA - Discharge Planning Initial Assessment Updated by [email or web address]: Wilber Ch on 09/14/19 4:44 pm * Is the patient Alert and Oriented? Yes * How many steps to enter\\exit or inside your home? * PCP DR. LANDON IN [place] * Pharmacy [facility] IN [place] * Preadmission Environment Home with Family * ADLs Partial Dependent * Partial ADLs (Assistance needed) Medication Management * Equipment Walker * Other Equipment NO MEDICAL EQUIPMENT PROVIDER PREFERENCE * List name and contact numbers for known caregivers / representatives who currently or will assist patient after discharge: JOHANNE KELLY" SISTER CHEN, * Verbal permission to speak to the caregivers and representatives has been obtained from the patient. N/A * Community resources currently utilized Other * Please name any agencies selected above. OUTPATIENT DIAYSIS, [facility] IN [place], [facility], 1000AM, SISTER DRIVES * Additional services required to return to the preadmission environment? No * Can the patient safely return to the preadmission environment? Yes * Has this patient been hospitalized within the prior 30 days at any hospital? No Coverage Notice Reviewer: [id number] Rizwan Ch Notice Issued Date-Time: 09/14/2019 9:25 Notice Type: IM Discharge Notice Notice Delivered To: Patient Relationship to Patient: Satellite Specialist Name: Delivery Method: HAND - Hand Delivered Constanza Days: Prior Verbal Notification: Recipient Understood Notice: Yes Recipient Signature: Yes Med Rec Note Co-signed by Attending: Coverage Notice Comment: Last DP export: 09/14/19 3:50 p Patient Name: JAEL CHEN Page [phone] at 1702 All edits/amendments must be made on the electronic document DICTATION DATE: 09/14/191701 TYPEWRITER MECHANIC: ESDRAS 09/14/191701 RPT#: [id number] DC DATE: STATUS: ADM IN [facility] [address] [place] [address] END OF REPORT
[2019-09-14 18:43] VITALS: BP 121/66
--- NOTE | 2019-09-14 19:10 | NUR ---
BEDSIDE REPORT RECEIVED FROM DAY SHIFT, PT CARE ASSUMED. INTRODUCED SELF AND WROTE NAME ON BOARD. PT SITTING IN BED, AAOX4. DENIES PAIN OR ANY NEEDS AT THIS TIME. BED IN LOWEST POSITION, SR X2, CALL LIGHT WITHIN REACH. WILL CONTINUE TO MONITOR.
[2019-09-14 20:00] VITALS: BP 108/72
[2019-09-15] VITALS: BP 126/72
[2019-09-15 04:00] VITALS: BP 135/75
[2019-09-15 06:19] LABS: BASOPHILS 0.2 % (0-2); EOSINOPHILS 1.2 % (0-7); HEMATOCRIT 32.8 % (42.0-54.0); HEMOGLOBIN 10.4 g/dL (13.5-17.5); IMMATURE GRANULOCYTES 0.4 % (0-5); MCH 29.5 pg (26.0-34.0); MCHC 31.7 g/dL (31.0-37.0); MCV 92.9 fL (80.0-100.0); MEAN PLATELET VOLUME 11.2 fL (7.4-10.4); MONOCYTES 18.2 % (2-11); PLATELET COUNT 152 10x3/uL (130-400); RBC 3.53 10x6/uL (4.20-6.10); RDW 15.8 % (11.5-14.5); WBC 4.9 10x3/uL (4.8-10.8)
[2019-09-15 06:50] LABS: ANION GAP 16.4 mmol/L (8-16); CALCIUM 8.2 mg/dL (8.5-10.1); CARBON DIOXIDE 28.6 mmol/L (21.0-32.0)
--- NOTE | 2019-09-15 06:54 | NUR ---
REPORT RECEIVED. HE WAS ASLEEP BUT AROUSED AND SPOKE. HE IS ALERT DENIES ANY CURRENT NEEDS. RIGHT HAND SALINE LOCK INTACT. RESP EVEN WITHOUT LABOR BED IN LOWEST POSITION AND LOCKED. CAREPLAN REVIEW DONE WITH SAFETY PRECAUTIONS IN PLACE. CL IN REACH. DENIES ANY CURRENT C/P
[2019-09-15 07:21] LABS: CREATININE - SERUM 10.1 mg/dL (0.6-1.3)
[2019-09-15 09:35] VITALS: BP 169/84
[2019-09-15 17:05] VITALS: BP 121/66
--- NOTE | 2019-09-15 19:15 | NUR ---
RECEIVED REPORT, WILL ASSUME CARE OF PT, DENIES ANY NEEDS AT THIS TIME, IV-R.HAND-SL, BED IS LOW, SRX2, CALL LIGHT IN REACH, WILL CONTINUE PLAN OF CARE
[2019-09-15 20:15] VITALS: BP 118/72
[2019-09-16 00:29] VITALS: BP 144/68
[2019-09-16 04:15] VITALS: BP 122/62
[2019-09-16 05:34] LABS: BASOPHILS 0.2 % (0-2); EOSINOPHILS 0.7 % (0-7); HEMOGLOBIN 11.1 g/dL (13.5-17.5); IMMATURE GRANULOCYTES 0.5 % (0-5); LYMPHOCYTES 12.5 % (15-50); MCH 29.7 pg (26.0-34.0); MCHC 31.7 g/dL (31.0-37.0); MCV 93.6 fL (80.0-100.0); MEAN PLATELET VOLUME 11.2 fL (7.4-10.4); MONOCYTES 12.5 % (2-11); NEUTROPHILS 73.6 % (40-80); PLATELET COUNT 173 10x3/uL (130-400); RBC 3.74 10x6/uL (4.20-6.10); RDW 15.8 % (11.5-14.5); WBC 5.9 10x3/uL (4.8-10.8)
[2019-09-16 05:54] LABS: ANION GAP 17.5 mmol/L (8-16); CALCIUM 8.9 mg/dL (8.5-10.1); CARBON DIOXIDE 28.3 mmol/L (21.0-32.0); POTASSIUM - SERUM 3.8 mmol/L (3.5-5.1)
[2019-09-16 05:56] LABS: CREATININE - SERUM 7.4 mg/dL (0.6-1.3); PHOSPHOROUS 6.9 mg/dL (2.5-4.9)
--- NOTE | 2019-09-16 07:10 | NUR ---
PT UP TO SIDE OF BED, A/O X4, RESP EVEN AND NONLABORED ON RA. RT HAND IV SL. LT ARM FISTULA WITH BRUIE AND THRILL NOTED. PT REQUESTED A GOWN, WILL PROVIDE PT WITH GOWN. PT DENIES ANY OTHER NEEDS AT THIS TIME. CALL LIGHT IN REACH, NAD NOTED, WILL CONTINUE PLAN OF CARE.
[2019-09-16 08:19] VITALS: BP 137/75
--- NOTE | 2019-09-16 09:46 | NUR ---
AM MEDS GIVEN AT THIS TIME. PT IN BED, DENIES ANY NEEDS AT THIS TIME. CALL LIGHT IN REACH,NAD NOTED, WILL CONTINUE TO MONITOR.
[2019-09-16] MEDS ORDERED: ANTIVERT12.5 MG PO (11:06)
--- NOTE | 2019-09-16 11:27 | MORECARE ---
CASE MANAGEMENT DISCHARGE SUMMARY PATIENT: JAEL CHEN UNIT: [id number] ADM DATE: 09/11/19 AGE: 68 : 48 SEX: M ROOM/BED: D.2131 AUTHOR: ALVARADO MORRIS PHYSICIAN: REFERRING PHYSICIAN: OVI PACHECO MD DATE OF SERVICE: 09/16/19 Discharge Plan Patient Name: JAEL CHEN Facility: [facility]:[place] : 1950 Planned Disposition: Home Anticipated Discharge Date: 09/14/19 Discharge Date: Expected LOS: 3 Initial Reviewer: [email or web address] Initial Review Date: 09/11/2019 Generated: 09/16/19 12:26 pm Comments DCP- Discharge Planning Updated by [email or web address]: Kerri Hoskins on 09/16/19 10:[address] Patient Name: JAEL CHEN Encounter No: [id number] : 1950 Primary Insurance: MEDICARE A & B Anticipated DC Date: 09-14-2019 Planned Disposition: Home External Planned Provider: : DCP follow-up note: Patient and family in agreement with discharge plan. No changes to plan. Case management will follow and assist as needed. Kerri Hoskins DCP- Discharge Planning Updated by [id number]: Wilber Ch on 09/14/19 3:[address] Patient Name: JAEL CHEN Admission Status: ER Accout number: [id number] Admission Date: 09-11-2019 : 1950 Admission Diagnosis: Attending: OVI PACHECO Current LOS: 3 Anticipated DC Date: 09-14-2019 Planned Disposition: Home Primary Insurance: MEDICARE A & B Discharge Planning Comments: CM MET WITH PT IN ROOM TO DISCUSS DISCHARGE PLANNING AND NEEDS. PT REPORTS LIVING AT HOME INDEPENDENTLY; PT'S SISTER IS LIVING WITH HIM TO ASSIST WITH MEDICATIONS AND TRANSPORTATION. PT HAS A WALKER WITH NO MEDICAL EQUIPMENT PROVIDER PREFERENCE. PT HAS NO OUTSIDE SERVICES ASSISTING IN THE HOME. PT'S SISTER DRIVES PT TO AND FROM DIALYSIS IN [place] ON MWF, 1000AM SCHEDULE. CM DISCUSSED AVAILABILITY OF HOME HEALTH, REHAB SERVICES AND MEDICAL EQUIPMENT. PT DENIES DISCHARGE NEEDS, REPORTS HIS DAUGHTER'S BOYFRIEND WILL PICK HIM UP FOR DISCHARGE HOME. IMPORTANT MESSAGE FROM MEDICARE PROVIDED AND EXPALINED. PT PLANS TO DISCHARGE HOME WITH FAMILY ASSISTANCE, DENIES NEEDS AT THIS TIME. FAMILY TO TRANSPORT HOME. CM TO FOLLOW AND ASSIST IF NEEDED. Timber Sprinkler: Wilber Ch DCPIA - Discharge Planning Initial Assessment Updated by [email or web address]: Wilber Ch on 09/14/19 4:44 pm * Is the patient Alert and Oriented? Yes * How many steps to enter\\exit or inside your home? * PCP DR. LANDON IN [place] * Pharmacy [facility] IN [place] * Preadmission Environment Home with Family * ADLs Partial Dependent * Partial ADLs (Assistance needed) Medication Management * Equipment Walker * Other Equipment NO MEDICAL EQUIPMENT PROVIDER PREFERENCE * List name and contact numbers for known caregivers / representatives who currently or will assist patient after discharge: JOHANNE KELLY" APRIL, , * Verbal permission to speak to the caregivers and representatives has been obtained from the patient. N/A * Community resources currently utilized Other * Please name any agencies selected above. OUTPATIENT DIAYSIS, [facility] IN [place], F, 1000AM, SISTER DRIVES * Additional services required to return to the preadmission environment? No * Can the patient safely return to the preadmission environment? Yes * Has this patient been hospitalized within the prior 30 days at any hospital? No Coverage Notice Reviewer: [id number] - Wilber Ch Notice Issued Date-Time: 09/14/2019 9:25 Notice Type: IM Discharge Notice Notice Delivered To: Patient Relationship to Patient: Roastmaster Name: Delivery Method: HAND - Hand Delivered Constanza Days: Prior Verbal Notification: Recipient Understood Notice: Yes Recipient Signature: Yes Med Rec Note Co-signed by Attending: Coverage Notice Comment: Last DP export: 09/14/19 4:02 p Patient Name: JAEL CHEN Page 83975 at 1127 All edits/amendments must be made on the electronic document DICTATION DATE: 09/16/191125 PREPARATORY TECHNICIAN: ESDRAS 09/16/191125 RPT#: [id number] DC DATE: STATUS: ADM IN [facility] [address] [place] [address] END OF REPORT
[2019-09-16 11:43] VITALS: BP 145/73
--- NOTE | 2019-09-16 14:08 | NUR ---
RX FOR MECLIZINE CALLED TO [facility] IN [place], SPOKE WITH ANNALISA, PHARMACIST
--- NOTE | 2019-09-16 14:30 | NUR ---
PROVIDED VERBAL AND WRITTEN DISCHARGE TEACHING TO PT AND FAMILY, ALL VERBALIZED UNDERSTANDING REGARDING TEACHING. WHEELED PT TO FRONT ENTRANCE, VIA WHEELCHAIR, WITH ALL BELONGINGS, ACCOMPANIED BY FAMILY, NAD NOTED.
--- NOTE | 2019-09-16 15:49 | MORECARE ---
CASE MANAGEMENT DISCHARGE SUMMARY PATIENT: JAEL CHEN UNIT: [id number] ADM DATE: 09/11/19 AGE: 68 : 48 SEX: M ROOM/BED: D.2131 AUTHOR: ALVARADO MORRIS PHYSICIAN: REFERRING PHYSICIAN: OVI PACHECO MD DATE OF SERVICE: 09/16/19 Discharge Plan Patient Name: JAEL CHEN Facility: [facility]:[place] : 1950 Planned Disposition: Home Anticipated Discharge Date: 09/14/19 Discharge Date: 09/16/2019 Expected LOS: 3 Initial Reviewer: [email or web address] Initial Review Date: 09/11/2019 Generated: 09/16/19 4:48 pm Comments DCP- Discharge Planning Updated by [email or web address]: Kerri Hoskins on 09/16/19 10:[address] Patient Name: JAEL CHEN Encounter No: [id number] : 1950 Primary Insurance: MEDICARE A & B Anticipated DC Date: 09-14-2019 Planned Disposition: Home External Planned Provider: : DCP follow-up note: Patient and family in agreement with discharge plan. No changes to plan. Case management will follow and assist as needed. Kerri Hoskins DCP- Discharge Planning Updated by [email or web address]: Wilber Ch on 09/14/19 3:[address] Patient Name: JAEL CHEN Admission Status: ER Accout number: [id number] Admission Date: 09-11-2019 : 1950 Admission Diagnosis: Attending: OVI PACHECO Current LOS: 3 Anticipated DC Date: 09-14-2019 Planned Disposition: Home Primary Insurance: MEDICARE A & B Discharge Planning Comments: CM MET WITH PT IN ROOM TO DISCUSS DISCHARGE PLANNING AND NEEDS. PT REPORTS LIVING AT HOME INDEPENDENTLY; PT'S SISTER IS LIVING WITH HIM TO ASSIST WITH MEDICATIONS AND TRANSPORTATION. PT HAS A WALKER WITH NO MEDICAL EQUIPMENT PROVIDER PREFERENCE. PT HAS NO OUTSIDE SERVICES ASSISTING IN THE HOME. PT'S SISTER DRIVES PT TO AND FROM DIALYSIS IN [place] ON MWF, 1000AM SCHEDULE. CM DISCUSSED AVAILABILITY OF HOME HEALTH, REHAB SERVICES AND MEDICAL EQUIPMENT. PT DENIES DISCHARGE NEEDS, REPORTS HIS DAUGHTER'S BOYFRIEND WILL PICK HIM UP FOR DISCHARGE HOME. IMPORTANT MESSAGE FROM MEDICARE PROVIDED AND EXPALINED. PT PLANS TO DISCHARGE HOME WITH FAMILY ASSISTANCE, DENIES NEEDS AT THIS TIME. FAMILY TO TRANSPORT HOME. CM TO FOLLOW AND ASSIST IF NEEDED. Broadcast Journalist: Wilber Ch DCPIA - Discharge Planning Initial Assessment Updated by [email or web address]: Wilber Ch on 09/14/19 4:44 pm * Is the patient Alert and Oriented? Yes * How many steps to enter\\exit or inside your home? * PCP DR. LANDON IN [place] * Pharmacy [facility] IN [place] * Preadmission Environment Home with Family * ADLs Partial Dependent * Partial ADLs (Assistance needed) Medication Management * Equipment Walker * Other Equipment NO MEDICAL EQUIPMENT PROVIDER PREFERENCE * List name and contact numbers for known caregivers / representatives who currently or will assist patient after discharge: JOHANNE KELLY" SISTER CHEN, * Verbal permission to speak to the caregivers and representatives has been obtained from the patient. N/A * Community resources currently utilized Other * Please name any agencies selected above. OUTPATIENT DIAYSIS, [facility] IN [place], MWF, 1000AM, SISTER DRIVES * Additional services required to return to the preadmission environment? No * Can the patient safely return to the preadmission environment? Yes * Has this patient been hospitalized within the prior 30 days at any hospital? No Coverage Notice Reviewer: [id number] - Wilber Ch Notice Issued Date-Time: 09/14/2019 9:25 Notice Type: IM Discharge Notice Notice Delivered To: Patient Relationship to Patient: Decorating Equipment Setter Name: Delivery Method: HAND - Hand Delivered Constanza Days: Prior Verbal Notification: Recipient Understood Notice: Yes Recipient Signature: Yes Med Rec Note Co-signed by Attending: Coverage Notice Comment: Last DP export: 09/16/19 10:27 a Patient Name: JAEL CHEN Page 05616 at 1549 All edits/amendments must be made on the electronic document DICTATION DATE: 09/16/191547 CNC MILLING MACHINE OPERATOR: ESDRAS 09/16/191547 RPT#: [id number] DC DATE:09/16/19 STATUS: DIS IN [facility] [address] [place] [address] END OF REPORT
--- NOTE | 2019-09-20 10:41 | EC ---
PATIENT:JAEL CHEN DATE OF SERVICE: 09/11/19 SEX: M MEDICAL RECORD: [id number] DATE OF : [birth year] LOCATION:D.M2 D.213 AGE OF PATIENT: 68 ADMISSION DATE: 09/11/19 REFERRING PHYSICIAN: INTERPRETING PHYSICIAN: JOON CHAPMAN MD ECHOCARDIOGRAM REPORT ECHO CHARGES 4 ECHO COMPLETE Date: 09/14/19 CLINICAL DIAGNOSIS: SOB ECHOCARDIOGRAPHIC MEASUREMENTS (adult normal given) AC root (d.<3.7cm) 3.6 cm LV Septum d (<1.2 cm> 1.7 cm Valve Excursion 0.6 cm LV Septum (systole) 2.1 cm Left Atria (s.<4.0cm> 3.9 cm LVPW d(<1.2cm) 1.5 cm RV (d.<2.3cm) 2.4 cm LVPW (sytole) 2.3 cm LV diastole(<5.6CM) 5.6 cm MV E-F(>70mm/sec) cm LV systole 3.5 cm LVOT Diameter 1.8 cm MV exc.(>10mm) cm Est.ejection fraction (50-75%) % DOPPLER: LVIT cm/sec A 127 cm/sec E 72.0 cm/sec LA cm/sec RVSP 35.0 mmHg LVOT 104 cm/sec AOP1/2T m/s Asc. Ao 362 cm/sec RVOT 74.0 cm/sec RA cm/sec PA 205 cm/sec AV Gradient Peak 53.0 mmHg AV Mean 33.0 mmHg AV Area 0.7 cm MV Gradient Peak 7.5 mmHg MV Mean 1.8 mmHg MV Area cm COMMENTS: Bait Digger: 1 JULIETA SEABROOK Director Furniture: 1 Dr. Chapman TAPE# PACS Pericardial Effusion N DATE OF SERVICE: FINDINGS: 1. Left ventricular chamber size is upper limits of normal. Left ventricular systolic function is mildly reduced at 40% to 45%. 2. Left atrium, right atrium, and right ventricular chamber sizes are within normal limits. 3. Valvular structures: Aortic valve demonstrates moderate calcific aortic stenosis, valve area calculates to 0.7 and there is gradient of 53 mm across the valve. The remaining valvular structures have normal structure and motion. ECHOCARDIOGRAM REPORT [id number] JAEL CHEN 4. Doppler interrogation elsewise reveals no significant valvular insufficiency or stenosis. Pulmonary systolic pressure is estimated at 35 mmHg. 5. No evidence of pericardial effusion or left ventricular thrombus. TRANSINT:[id number] Voice Confirmation ID: [id number] DOCUMENT ID: [id number] JOON CHAPMAN MD at 1041 CC: [id number] DICTATION DATE: 09/15/19809 PORT PATROL OFFICER: 09/15/19819 DIS IN 09/16/19 [place] [id number] [place] [id number]
== END 2019-09-16 14:35 | disposition home or self-care (01) | DRG 246 ==
LOC: OBSVTIME → D.ER 01:01 → D.OPS 01:01 → D.ER 03:22 → D.M2 03:22 → OBSVTIME 03:22 → D.ER 04:48 → EDSTATUS 08:45 → D.M2 16:18
PROVIDERS: Family Medicine; Internal Medicine Interventional Cardiology; ADMIT Internal Medicine; ATTEND Internal Medicine
PROC: B2121ZZ Fluoroscopy of Single Coronary Artery Bypass Graft using Low Osmolar Contrast (ICD-10-PCS; 2019-09-11)
PROC: B2181ZZ Fluoroscopy of Left Internal Mammary Bypass Graft using Low Osmolar Contrast (ICD-10-PCS; 2019-09-11)
PROC: B2151ZZ Fluoroscopy of Left Heart using Low Osmolar Contrast (ICD-10-PCS; 2019-09-11)
PROC: B2111ZZ Fluoroscopy of Multiple Coronary Arteries using Low Osmolar Contrast (ICD-10-PCS; 2019-09-11)
PROC: 4A033BC Measurement of Arterial Pressure, Coronary, Percutaneous Approach (ICD-10-PCS; 2019-09-11)
PROC: 027034Z Dilation of Coronary Artery, One Artery with Drug-eluting Intraluminal Device, Percutaneous Approach (ICD-10-PCS; principal; 2019-09-11 13:40)
PROC: 4A023N7 Measurement of Cardiac Sampling and Pressure, Left Heart, Percutaneous Approach (ICD-10-PCS; 2019-09-11 13:40)
DX: I21.4 Non-ST elevation (NSTEMI) myocardial infarction (principal); N18.6 End stage renal disease; I12.0 Hypertensive chronic kidney disease with stage 5 chronic kidney disease or end stage renal disease; I25.10 Atherosclerotic heart disease of native coronary artery without angina pectoris; E78.5 Hyperlipidemia, unspecified; D63.1 Anemia in chronic kidney disease; R42 Dizziness and giddiness; H92.01 Otalgia, right ear

== ENCOUNTER 2019-09-24 21:43 | Inpatient (IN) | payer MEDICARE ==
[~2019-09-24] VITALS: Ht 177.8 cm; Wt 62.1 kg
--- NOTE | ~2019-09-24 | HEMODYNAMI ---
PATIENT:JAEL CHEN MEDICAL RECORD: [id number] : 46 [facility] [id number] ADMISSION DATE: 09/24/19 Generatedon:09/25/201911:35 Patient name: JAEL CHEN Patient #: [id number] : 1950 Date of study: 09/25/2019 Page: Of Hemodynamic Procedure Report Patient Data Patient Demographics Procedure consent was obtained First Name: JAEL Gender: Male Last Name: APRIL : 1950 Patient #: [id number] Age: 68 year(s) Race: Black SSN: [id number] Additional ID: [id number] Contact details Address: [address] [place] [address] [address] State: [place] City: [place] Zip code: [address] Past Medical History Allergies: No known allergies Admission Admission Data Admission Date: 09/24/2019 Admission Time: 23:20 Arrival Date: 09/25/2019 Arrival Time: 0:00 Admit Source: Other Insurance Payor: Medicare, Room #: D.2118 Medicaid Height (in.): 69.69 BSA: 1.84 (m2) Height (cm.): 177 BMI: 21.71 (kg/m2) Weight (lbs.): 149.92 Weight (kg.): 68 Lab Results Lab Result Date: 09/25/2019 Lab Result Time: 0:00 Biochemistry Name Units Result Min Max BUN mg/dl 58 --(----)-* 7 18 Creatinine mg/dl 10.9 --(----)-* 0.6 1.3 CBC Name Units Result Min Max Hemoglobin g/dl 10.3 *-(----)-- 13.5 17.5 Procedure Procedure Types Cath Procedure Diagnostic Procedure LHC Coronaries w/Grafts FFR/IVUS FFR Initial Sedation Charges Moderate Sedation up to 15 minutes Procedure Description Procedure Date Procedure Date: 09/25/2019 Procedure Start Time: 11:13 Procedure End Time: 11:33 Procedure Staff Name Function Feroz Chapman MD Performing Physician Scarlett Day RT Monitor Ann Marie Brock RT Scrub Letha Romo RT Scrub Noemi Bautista RN Nurse Indication Chest pain Chest discomfort Procedure Data Cath Procedure Fluoroscopy Diagnostic fluoroscopy Total fluoroscopy Time: 6.6 time: 6.6 min min Diagnostic fluoroscopy Total fluoroscopy dose: 598 dose: 598 mGy mGy Contrast Material Contrast Material Type Amount (ml) Isovue 300 120 Entry Location Entry Primary Successful Side Size Upsize Upsize Entry Closure Succes sful Closure Location (Fr) 1 (Fr) 2 (Fr) Remarks Device Remarks Femoral Right 5 Fr 6 Fr Exoseal artery Short Estimated blood loss: 10 ml Diagnostic catheters Device Type Used For End Catheter Placement MULTIPACK Pigtail 5 Fr Ventriculography catheter MULTIPACK JL 4.0 5Fr Procedure catheter MULTIPACK 3DRC 5Fr Procedure catheter DIAGNOSTIC AR MOD 5Fr Procedure Catheter (417682P) Procedure Complications No complications Procedure Medications Medication Administration Route Dosage 0.9% NaCl I.V. 100 ml/hr Oxygen etCO2 Nasal cannula 2 l/min Lidocaine 2% added to field 20 Heparin Flush Bag added to field 2 bags (1000units/500ml NS) Versed I.V. 2 mg Fentanyl I.V. 50 mcg Fentanyl I.V. 50 mcg Hemodynamics Rest BSA: 1.84 (m2) HGB: 10.3 (g/dl) O2 Consumption: Estimated: 223.81 (ml/min) O2 Co nsumption indexed: Estimated:121.64 (ml/min/m) Heart Rate: 86 (bpm) Pressure Samples Time Site Value (mmHg) Purpose Heart Use Rate(bpm) 11:16 LV 107/4,14 Snapshot 78 Snapshots Pre Cath Intra NCS Post Cath Vital Signs Time Heart Resp SPO2 etCO2 NIBP (mmHg) Rhythm Pain Sedation Rate (ipm) (%) (mmHg) Status Level (bpm) 10:58:06 85 25 96 26.1 145/94(115) NSR 0 (11) 10(A) , No pain 11:02:20 83 18 95 19.4 150/136(139) NSR 0 (11) 10(A) , No pain 11:06:36 80 11 96 24.7 128/81(100) NSR 0 (11) 10(A) , No pain 11:11:18 79 19 96 35.1 120/75(97) NSR 0 (11) 10(A) , No pain 11:15:31 78 12 96 22.4 118/70(88) NSR 0 (11) 9(A) , No pain 11:19:36 78 19 96 21.6 116/75(91) NSR 0 (11) 9(A) , No pain 11:23:42 79 19 97 29.1 117/74(94) NSR 0 (11) 9(A) , No pain 11:27:40 78 15 96 35.1 109/75(94) NSR 0 (11) 9(A) , No pain 11:31:54 78 21 97 34.4 62/30(53) NSR 0 (11) 10(A) , No pain Medications Time Medication Route Dose Verified Delivered Reason Notes Eff ectiveness by by 10:57:09 0.9% NaCl I.V. 100 Feroz Noemi used for ml/hr Adela Bautista stroboroma operator 10:57:15 Oxygen etCO2 2 Feroz Noemi used for Nasal l/min Adela Bautista procedure cannula RN 10:57:20 Lidocaine 2% added 20ml Feroz Feroz for local to vial Adela Chapman MD anesthetic field 10:57:25 Heparin Flush added 2 Feroz Feroz used for Bag to bags Adela Chapman MD procedure (1000units/500ml field NS) 11:13:17 Versed I.V. 2 mg Feroz Noemi for Adela Bautista sedation RN 11:13:22 Fentanyl I.V. 50 Feroz Noemi for mcg Adela Bautista sedation RN 11:18:58 Fentanyl I.V. 50 Feroz Noemi for mcg Adela Bautista sedation stenotypist Log Time Note 10:36:50 Diagnostic Cath Status : Urgent 10:37:30 Letha Romo RT(R) (CV) sent for patient. Start room use. 10:37:31 Time tracking: Regular hours (M-F 7:00 - 5:00) 10:37:36 Plan of Care:Hemodynamics will remain stable., Cardiac rhythm will remain stable., Comfort level will be maintained., Respiratory function will remain adequate., Patient/ family verbilizes understanding of procedure., Procedure tolerated without complication., Recovers from procedure without complications.. 10:45:03 Indication : Chest pain 10:45:08 Indication : Chest discomfort 10:50:30 Arrival Date: 09/25/2019 12:00:00 AM 10:50:32 Admit Source: Other 10:50:43 Insurance Payor : Medicare, Medicaid 10:51:12 Patient Height : 69.69 inches 10:51:16 Patient Weight : 149.92 lbs 10:51:55 Lab Result : Hemoglobin 10.3 g/dl 10:51:55 Lab Result : Creatinine 10.9 mg/dl 10:51:55 Lab Result : BUN 58 mg/dl 10:52:10 Patient received from Med II to CCL 2 Alert and oriented. Tansferred to table in Supine position. 10:52:13 Signed procedure consent form obtained from patient. 10:52:14 Warm blankets applied, and maya hugger turned on for patient comfort. 10:52:14 Correct patient and procedure confirmed by team. 10:52:15 ECG and BP/O2 sat monitors applied to patient. 10:52:31 H&P Date Dictated: 09/24/2019 Within 30 days and on chart., H&P Addendum completed by physician on day of procedure. (MUST COMPLETE FOR ALL OUTPATIENTS). 10:52:32 Pre-procedure instructions explained to patient. 10:52:39 Family unavailable. 10:52:57 Patient allergic to No known allergies 10:53:00 Is the patient allergic to Iodine/contrast media? No. 10:53:01 Was the patient premedicated? Yes 10:57:01 Vital chart was started 10:57:09 0.9% NaCl 100 ml/hr I.V. was administered by Noemi Bautista RN; used for procedure; Verbal order read back and verified. 10:57:15 Oxygen 2 l/min etCO2 Nasal cannula was administered by Noemi Bautista RN; used for procedure; Verbal order read back and verified. 10:57:18 Is patient on blood thinner?No 10:57:20 Lidocaine 2% 20ml vial added to field was administered by Feroz Chapman MD; for local anesthetic; Verbal order read back and verified. 10:57:21 Patient diabetic? No. 10:57:25 Heparin Flush Bag (1000units/500ml NS) 2 bags added to field was administered by Feroz Chapman MD; used for procedure; Verbal order read back and verified. 10:57:25 Snore? Yes 10:57:27 Sleep apnea? No 10:57:29 Deviated septum? No 10:57:33 Dentures? No ? 10:57:42 Patient pain scale 0/10 ?. 10:57:54 IV patent on arrival in right forearm with 0.9% NaCl at O. 10:58:01 Lab results completed and on chart. 10:58:11 Stress Test: no; N/A ? 10:58:14 Risk of Mortality: 8.6 10:58:18 Risk of blood transfusion: 13.9 10:58:21 Risk of VASU: 26. 10:58:26 Right groin area was prepped with betadine and draped in sterile fashion 10:58:35 Baseline sample Acquired. 10:58:37 Full Disclosure recording started 10:58:50 Pre procedure: right dorsailis pedis pulse Doppler 10:59:01 Alarms reviewed by R. N. 10:59:02 Sharps counted by scrub and verified by R.N. 11:05:10 5) <15 or on dialysis Very severe, or end stage kidney failure. 11:05:32 Maximum allowable contrast dose (3.7 X eGFR X 0.75)16 ml. 11:11:53 Physician arrived 11:11:53 --------ALL STOP TIME OUT------ 11:11:55 Final Timeout: patient, procedure, and site verified with staff and physician. All members of the team are in agreement. 11:12:05 Right groin site verified by team. 11:12:09 Fire Safety Assessment: A--An alcohol-based skin anteseptic being used preoperatively., C--Open oxygen or nitrous oxide is being used., D--An ESU, laser, or fiber-optic light is being used. 11:12:25 Physical assessment completed. ASA score P 3 - A patient with severe systemic disease as per Feroz Chapman MD. 11:12:32 Sedation plan: IV Moderate Sedation Medication:Versed, Fentanyl 11:12:36 Use device set Femoral Dx 11:12:44 Procedure started. 11:12:51 ACIST Syringe (64792) opened to sterile field. 11:12:51 Bag Decanter () opened to sterile field. 11:12:56 Zero performed for pressure channel P1 11:13:06 Zero performed for pressure channel P1 11:13:15 Medline Cath Pack ([id number]) opened to sterile field. 11:13:17 Versed 2 mg I.V. was administered by Noemi Bautista RN; for sedation; Verbal order read back and verified. 11:13:17 ACIST Hand Control (06382) opened to sterile field. 11:13:17 ACIST Manifold (81979) opened to sterile field. 11:13:18 DIAGNOSTIC Multipack 5Fr catheter set ([id number]) opened to sterile field. 11:13:21 SHEATH 5FR Walcott (GTP850) opened to sterile field. 11:13:22 Fentanyl 50 mcg I.V. was administered by Noemi Bautista RN; for sedation; Verbal order read back and verified. 11:13:22 EMERALD Guide Wire (945-623) opened to sterile field. 11:13:29 Local anesthetic to right femoral artery with Lidocaine 2% by Feroz Chapman MD.INITIAL ACCESS ONLY 11:13:41 A 5 Fr sheath was inserted into the Right Femoral artery 11:14:11 J wire advanced. 11:14:47 A MULTIPACK Pigtail 5 Fr catheter was advanced over the wire and used for Ventriculography. 11:15:00 LV angiography performed. 11:16:22 EF : 30 % 11:16:30 Catheter removed. 11:16:36 A MULTIPACK JL 4.0 5Fr catheter was advanced over the wire and used for Procedure. 11:16:44 LCA angiography performed. 11:18:29 Catheter removed. 11:18:35 A MULTIPACK 3DRC 5Fr catheter was advanced over the wire and used for Procedure. 11:18:44 SVG to LAD angiography performed. 11:18:57 RCA angiography performed. 11:18:58 Fentanyl 50 mcg I.V. was administered by Noemi Bautista RN; for sedation; Verbal order read back and verified. 11:19:21 Catheter removed. 11:19:53 A DIAGNOSTIC AR MOD 5Fr Catheter ([id number]) was advanced over the wire and used for Procedure. 11:19:58 SVG to Circ angiography performed. 11:20:57 Catheter removed. 11:21:12 SHEATH 6FR [place] (PGC858) opened to sterile field. 11:21:23 Sheath upsized to a 6 Fr Short. 11:23:39 GUIDE 6FR ART 4.0 catheter ([id number]) opened to sterile field. 11:23:55 6 Fr ART4 guide catheter was inserted over the wire 11:24:17 INFLATOR Merit BasixCompak (OY8553) opened to sterile field. 11:24:18 [place] Verrata Plus pressure wire (87003C) opened to sterile field. 11:24:19 MIRACLEBROS guidewire (NO COST) opened to sterile field. 11:24:47 GUIDE 6FR AL 2.0 catheter (UP1LR52) opened to sterile field. 11:24:56 6 Fr AL6 guide catheter was inserted over the wire 11:26:31 Guide catheter removed. 11:27:35 GUIDE 6FR ART 3.5 catheter ([id number]) opened to sterile field. 11:27:56 FFR/IFR wire advanced. 11:29:21 Wire advanced across lesion. 11:29:25 Baseline FFR .91. 11:30:41 Wire removed. 11:30:42 Catheter removed. 11:30:54 Sheath removed intact; hemostasis achieved with Exoseal to the Right Femoral artery. 11:31:03 EXOSEAL 6Fr (EX600) opened to sterile field. 11:31:06 Procedure ended.(Physican Out) 11:31:16 Fluoroscopy time 06.60 minutes. 11:31:22 Fluoroscopy dose: 598 mGy 11:31:22 Flurop Dose total: 598 11:31:26 Dose Area Product 96432 mGy/cm. 11:31:48 Contrast amount:Isovue 300 120ml. 11:31:50 Maximum allowable dose exceeded? No. 11:31:51 Sharps counted by scrub and verified by R.N. 11:31:54 Insertion/operative site no bleeding no hematoma. 11:31:57 Post-op/insertion site Right Femoral artery dressed using a 4 x 4 and Tegaderm. 11:32:01 Post Procedure Pulses reassessed and unchanged 11:32:10 Post-procedure physical assessment completed. ASA score P 2 - A patient with mild systemic disease as per Feroz Chapman MD. 11:32:13 Post procedure rhythm: unchanged. 11:32:16 Estimated blood loss: 10 ml 11:32:17 Post procedure instruction explained to patient.Patient verbalizes understanding. 11:32:38 Procedure type changed to Cath procedure, Diagnostic procedure, LHC, Coronaries w/Grafts, FFR/IVUS, FFR Initial, Sedation Charges, Moderate Sedation up to 15 minutes 11:32:44 Procedure and supply charges have been captured, reviewed, submitted and are correct. 11:33:09 Procedure Complication : No complications 11:33:11 Vital chart was stopped 11:33:13 [facility] Findings: mild to moderate CAD (<70%) 11:33:20 Operative report dictated upon procedure completion. 11:33:21 See physician's report for complete and final results. 11:33:25 Report given to [facility]. 11:33:28 Patient transfered to [facility] with Bed. 11:33:31 Procedure ended. 11:33:31 Full Disclosure recording stopped 11:33:36 End room use (Document Last) 11:33:52 ACC-PCI Only Patient was given prescriptions, or instructed by Feroz Chapman MD to start/continue the following medications upon discharge: Plavix Device Usage Item Name Manufacture Quantity Catalog Number Hospital Part Current [facility] Lot# / Charge Number Stock Stock Serial# Code ACIST Acist 1 [id number] [id number] 073777 205015 20 Syringe Medical (21507) Systems Inc Bag Microtek 1 181466 16302 574388 5 Decanter Medical Inc. () Medline Medline 1 [id number] 317660 81211 902244 5 Cath Pack ([id number]) ACIST Hand Acist 1 17025 995700 604879 321905 5 Control Medical (35708) Systems Inc ACIST Acist 1 00469 721807 703308 129156 5 Manifold Medical (84870) Systems Inc DIAGNOSTIC Cardinal 1 [id number] 183517 59103 380638 30 Multipack Health 5Fr catheter set (OE1466) SHEATH 5FR Terumo 1 AZQ663 422217 809413 523719 5 Walcott (PZR478) EMERALD Cardinal 1 502-849 340872 979358 962880 5 Guide Wire Health (502-771) MULTIPACK Cardinal 1 992578 5 Pigtail 5 Health Fr catheter MULTIPACK Cardinal 1 336420 5 JL 4.0 5Fr Health catheter MULTIPACK Cardinal 1 457732 5 3DRC 5Fr Health catheter DIAGNOSTIC Cardinal 1 [id number] 887881 374682 453721 15 AR MOD 5Fr Health Catheter (077554O) SHEATH 6FR Terumo 1 WIA098 029148 099058 926829 40 Walcott (BFT956) GUIDE 6FR [place] 1 [id number] 275083 009616 619316 0 ART 4.0 Scientific catheter ([id number]) INFLATOR Merit 1 VU1017 760558 689199 707230 15 Merit Medical BasixCompak (ST7457) Shong[place]oo Shongaloo 1 06661U 966559 [id number] 281354 5 Verrata Plus pressure wire (90494I) MIRACLEBROS [place] 1 [id number] 390821 686641 5 guidewire Vascular (NO COST) GUIDE 6FR Medtronic 1 [id number] 489678 54737 557035 1 AL 2.0 catheter (NV4OA10) GUIDE 6FR [place] 1 [id number] 652595 846043 315606 0 ART 3.5 Scientific catheter ([id number]) EXOSEAL 6Fr Cardinal 1 EX600 601408 072073 946487 10 (EX600) Health Signature Audit [place] Stage Time Signature Unsigned Intra-Procedure 09/25/2019 Scarlett Day 11:34:10 AM RT(R) Intra-Procedure 09/25/2019 Noemi Bautista 11:34:46 AM RN Intra-Procedure 09/25/2019 Feroz Chapman 11:35:09 AM Signatures Performing Physician : Signature : Feroz Chapman MD Date : Time : Monitor : Scarlett Day Signature : RT Date : Time : Nurse : Noemi Bautista RN Signature : Date : Time : [address] [place] [address]
[~2019-09-24 21:43] MED LIST changes: +ANTIVERT12.5 MG PO
[2019-09-24] MEDS ORDERED: megace (21:49)
[2019-09-24] MEDS ORDERED: TYLENOL W/CODEI1 TAB PO (21:52)
--- NOTE | 2019-09-24 22:49 | NUR ---
PT TOOK ASA AT HOME THIS MORNING. ADVISED EDP CRYSTAL, NO NEW ORDERS GIVEN FOR ADDITIONAL ASA.
[2019-09-24 22:58] LABS: CREATINE KINASE 291 UL (21-232)
[2019-09-24 23:01] LABS: TROPONIN-I 7.429 ng/mL (0.000-0.060)
[2019-09-24 23:05] LABS: CKMB 41.8 U/L (0.0-3.6)
[2019-09-25 01:26] VITALS: BP 143/80; BMI 21.7
[2019-09-25 04:00] VITALS: BP 126/73
[2019-09-25 05:27] LABS: BASOPHILS 0 % (0-2); EOSINOPHILS 0.2 % (0-7); HEMATOCRIT 32.8 % (42.0-54.0); HEMOGLOBIN 10.3 g/dL (13.5-17.5); IMMATURE GRANULOCYTES 0.3 % (0-5); LYMPHOCYTES 16.4 % (15-50); MCH 30.1 pg (26.0-34.0); MCHC 31.4 g/dL (31.0-37.0); MCV 95.9 fL (80.0-100.0); MONOCYTES 8.9 % (2-11); NEUTROPHILS 74.2 % (40-80); PLATELET COUNT 193 10x3/uL (130-400); RBC 3.42 10x6/uL (4.20-6.10); RDW 16.3 % (11.5-14.5); WBC 6.6 10x3/uL (4.8-10.8)
[2019-09-25 06:09] LABS: ANION GAP 17.8 mmol/L (8-16); CALCIUM 8.4 mg/dL (8.5-10.1); CHOL - HDL RATIO 2.9 ratio (2.3-4.9); CREATININE - SERUM 10.9 mg/dL (0.6-1.3); LDL-HDL RATIO 1.6 ratio (1.5-3.5); POTASSIUM - SERUM 5.8 mmol/L (3.5-5.1)
[2019-09-25 07:38] VITALS: BP 129/65
--- NOTE | 2019-09-25 11:58 | NUR ---
BACK FROM PARAPROFESSIONAL EDUCATION ASSISTANT. RIGHT GROIN STABLE WITHOUT BLEEDING OR HEMATOMA NOTED. LEAVING FOR DIALYSIS BY BED.
[2019-09-25 14:09] VITALS: Ht 177.8 cm; Wt 62.1 kg
--- NOTE | 2019-09-25 16:23 | NUR ---
BACK FROM DIALYSIS. B/P 149/86. GROIN STABLE. WILL CONT. PLAN OF CARE.
--- NOTE | 2019-09-25 19:11 | NUR ---
RECIEVED BEDSIDE SHIFT REPORT. ALERT AND ORIENTED X4. UP AD ULI. DSG TO RIGHT GROIN CDI. IV TO RIGHT WRIST SL.. TELEMETRY IN PLACE. DENIES ANY NEEDS.
[2019-09-25 20:35] VITALS: BP 127/80
[2019-09-26] VITALS (10 sets, daily range): BP systolic 84–163; BP diastolic 67–86
--- NOTE | 2019-09-26 10:20 | NUR ---
FOUND UP WANDERING OUT OF ROOM, CONFUSED WITH UNSTEADY GAIT. ASSISTED BACK TO BED WITH BED ALARM ON. WILL MONITOR.
--- NOTE | 2019-09-26 11:34 | NUR ---
HAS PULLED OUT HIS IV AND IS REFUSING ANOTHER ONE AT THIS TIME.
--- NOTE | 2019-09-26 14:32 | NUR ---
PT ARRIVED TO ROOM 2301 VIA FREDDY CHAIR ESCORTED BY PILAR, STAFF MEMBER. PILAR STATED "IF HE'S IN THE FREDDY CHAIR HE'LL STAY CALM AND IN THE CHAIR. IF YOU PUT HIM IN THE BED HE'LL GET UP. HE STAYS CALM IN THE FREDDY CHAIR." KEPT PT IN FREDDY CHAIR WITH DOOR OPEN AND IN SIGHT OF PT. PT CALM AND COOPERATIVE ON TRANSFER. WILL CONT TO MONITOR.
--- NOTE | 2019-09-26 14:37 | NUR ---
CONTUES TO GET MORE CONFUSED AN UNCOOPERATIVE. GIUSEPPE GILES CALLED FOR A SECOND TIME. DC CANCELLED. HALDOL GIVEN. TRANSFERED TO ICU BY FREDDY CHAIR FOR FREDDY PSYCH EVAL.
--- NOTE | 2019-09-26 14:58 | NUR ---
PT GOT OUT OF FREDDY CHAIR AND FELL ON RIGHT SIDE ON FLOOR. PT DENIES ANY PAIN. ERIKA RN, JACKSON RN, KAIT RN ASKED PT IF HE WAS IN ANY PAIN BEFORE MOVING PT, PT DENIED. PT DENIED HITTING HIS HEAD ON THE FLOOR. BED ALARM IN PLACE. WILL CONT TO MONITOR.
--- NOTE | 2019-09-26 15:00 | NUR ---
PT IN BED, BILATERAL SOFT WRIST RESTRAINTS APPLIED. SALON ASSISTANT WAQAS AT BEDSIDE, NOTIFIED OF RESTRAINTS. WILL CONT TO MONITOR.
--- NOTE | 2019-09-26 17:00 | NUR ---
PT IN BED, PICKING UP COVERS AND THROWING THEM AROUND. WILL CONT TO MONITOR.
--- NOTE | 2019-09-26 17:15 | NUR ---
DR STEPHEN NOTIFIED ABOUT ACUTE HIP FX. ORDERS FOR HALIDOL 2MG IV Q1H PRN CONSULT DR PETERSON
--- NOTE | 2019-09-26 17:16 | NUR ---
CALLED. WILL CONT TO MONITOR.
--- NOTE | 2019-09-26 19:00 | NUR ---
Received patient laying in bed with eyes open, assessment completed per flowsheet. Patient disoriented to time/place/situation, reorientation unsuccessful. S1/S2 noted NSR on telemetry, rythmic and regular. Breathing is shallow on room air with O2 sat 94%, lung sounds clear bilateral upper and mid with diminished lower. Abdomen is round/soft with bowel sounds active x4, non-tender. Patient anuric at this time. All pulses palpable with cap refill < 3 sec, skin warm/dry. Unable to assess pain at this time, patient does not answer questions. Repositioned for comfort, see flowsheet for details. All VSS and will continue to monitor.
--- NOTE | 2019-09-26 21:00 | NUR ---
Patient resting in bed with eyes open, disoriented to time/place/situation. HS meds given with applesauce, no difficulty swallowing noted. Patient winces with movement but denies pain when questioned, repositioned for comfort. No further needs and will continue to monitor.
--- NOTE | 2019-09-26 23:00 | NUR ---
Reassessment completed per flowsheet, no changes noted from previous assessment. Patient disoriented to time/place/situation, follows instructions with reorientation unsuccessful. S1/S2 noted Sinus Tach on telemetry, rythmic and regular. Breathing is shallow on room air with O2 sat 93%, lung sounds clear bilateral upper and mid with diminished lower. L arm fistula WNL, thrill/bruit noted. All pulses palpable with cap refill < 3 sec, skin warm/dry. Patient denies pain, winces with movement. Repositioned for comfort, no further needs at this time. See flowhseet for details, all VSS and will continue to monitor.
[2019-09-27] VITALS (24 sets, daily range): BP systolic 91–135; BP diastolic 30–105
--- NOTE | 2019-09-27 | NUR ---
Patient placed on NPO status per orders.
--- NOTE | 2019-09-27 01:00 | NUR ---
Patient awakens easily, remains disoriented to time/place/situation. Patient attempting to get OOB, assisted back into bed with bed alarm on/functioning. Repositioned for comfort, no further needs and will continue to monitor.
--- NOTE | 2019-09-27 03:00 | NUR ---
Reassessment completed per flowsheet, no changes noted from previous assessment. Patient disoriented to time/place/situation, follows instructions. S1/S2 noted NSR on telemetry, rythmic and regular. Breathing is shallow on room air with O2 sat 95%, lung sounds clear bilateral upper and mid with diminished lower. R groin cath site soft to palpation, dressing CDI. All pulses palpable with cap refill < 3 sec, skin warm/dry. Repositioned for comfort, see flowsheet for details. All VSS and will continue to monitor.
--- NOTE | 2019-09-27 05:00 | NUR ---
Patient laying in bed with eyes open, states he needs "to get to the doctor for Dialysis". Explained current situation/pre-op plans with stated understanding, disorientation noted. All VSS and will continue to monitor.
--- NOTE | 2019-09-27 06:00 | NUR ---
Attempted to contact Aurelio Delacruz (Sister) to obtain consent for procedure, unable to reach with VM left requesting return call.
--- NOTE | 2019-09-27 07:00 | NUR ---
REPORT RECIEVED CARE ASSUMED ASSESSMENT DONE SEE FLOW SHEET. VSS. FAMILY NOTIFIED OF SURGERY. NO CONSENT OBTAINED. PT SISTER INFORMED OF PROCEDURE. CANNOT SIGN DUE TO DAUGHTERS. WILL CONTINUE TO MONITOR.
--- NOTE | 2019-09-27 07:00 | NUR ---
BEDSIDE SHIFT REPORT COMPLETE. ASSESSMENT DONE SEE FLOW SHEET. VSS. ROOM FREED OF CLUTTER. DR PETERSON GIVEN PT UPDATE. WILL CONTINUE TO MONITOR.
--- NOTE | 2019-09-27 07:35 | NUR ---
Nutrition follow-up: Pt NPO for hip surgery today Labs reviewed Wt: 154# RDN following.
[2019-09-27 07:45] LABS: INR 1.37 (0.85-1.17); PROTIME 16.3 SECONDS (11.6-15.0)
[2019-09-27 07:51] LABS: ALBUMIN 3.6 g/dL (3.4-5.0); ANION GAP 26.3 mmol/L (8-16); BILIRUBIN - TOTAL 0.83 mg/dL (0.2-1.3); CALCIUM 8.8 mg/dL (8.5-10.1); CARBON DIOXIDE 20.9 mmol/L (21.0-32.0); CREATININE - SERUM 9.3 mg/dL (0.6-1.3); POTASSIUM - SERUM 5.2 mmol/L (3.5-5.1); PROTEIN - SERUM 7.4 g/dL (6.4-8.2)
[2019-09-27 08:08] LABS: BASOPHILS 0 % (0-2); EOSINOPHILS 0 % (0-7); HEMATOCRIT 38.6 % (42.0-54.0); IMMATURE GRANULOCYTES 0.3 % (0-5); LYMPHOCYTES 7.8 % (15-50); MCH 29.6 pg (26.0-34.0); MCHC 31.1 g/dL (31.0-37.0); MCV 95.1 fL (80.0-100.0); MEAN PLATELET VOLUME 10.9 fL (7.4-10.4); MONOCYTES 10.8 % (2-11); NEUTROPHILS 81.1 % (40-80); PLATELET COUNT 196 10x3/uL (130-400); RBC 4.06 10x6/uL (4.20-6.10); RDW 15.9 % (11.5-14.5); WBC 10.4 10x3/uL (4.8-10.8)
--- NOTE | 2019-09-27 09:00 | NUR ---
0830 DR LARA NOTIFIED OF PT STATUS. ORDER FOR DIALYSIS TODAY. DIALYSIS NOTIFIED. ANESTHESIA NOTIFIED OF PT STATUS ORDER TO HOLD INDUR GIVEN. DIALYSIS TO BE GIVEN BEFORE PROCEDURE. 0900 PT OFF FLOOR FOR CT OF HEAD. RN AT BEDSIDE.
--- NOTE | 2019-09-27 09:14 | NUR ---
PT BACK ON FLOOR. VSS. WILL CONTINUE TO MONITOR.
--- NOTE | 2019-09-27 10:07 | NUR ---
DIALYSIS NURSE AT BEDSIDE. WILL CONTINUE TO MONITOR.
--- NOTE | 2019-09-27 10:55 | NUR ---
REASSESSMENT DONE SEE FLOW SHEET. VSS.
--- NOTE | 2019-09-27 12:43 | CN ---
PATIENT NAME:JAEL CHEN MEDICAL RECORD: [id number] : 46 LOCATION:[facility] ADMIT DATE: 09/24/19 ACCOUNT: [id number] CONSULTING PHYSICIAN: EFFIE CHIN MD REFERRING PHYSICIAN: ROMMEL STEPHEN MD DATE OF CONSULTATION: 09/26/2019 PSYCHIATRIC CONSULTATION IDENTIFYING DATA: The patient is 68 years old and he is admitted to the hospital on a voluntary basis. CHIEF COMPLAINT: Chest pain. HISTORY OF PRESENT ILLNESS: The patient presented to the hospital with a history of coronary artery disease and chest pain. He has been evaluated and treated and was scheduled to be discharged, but became quite confused and agitated. He has almost no recollection of current events. He is oriented to person and place, but not at all to time and situation. Telling me that he is here for some reason related to his laundry and that the year is definitely 1965. He denies that he would seek to harm himself or others. MENTAL STATUS EXAMINATION: The patient is awake, alert and partially oriented as described above. His mood is flat. His affect is constricted. Thought processes are circumstantial with significant impairment of his memory, concentration, and abstraction abilities. He denies that he would seek to harm himself or others. ASSESSMENT: Advanced major neurocognitive disorder of the Alzheimer's type. PLAN: The patient had agitation and aggression associated with this hospitalization. It is inappropriate for him to live alone. He needs to be transferred to the behavioral unit for ongoing treatment. His long-term prognosis is guarded. Every effort will be made to place him in the least restrictive environment possible. TRANSINT:[id number] Voice Confirmation ID: [id number] DOCUMENT ID: [id number] EFFIE CHIN MD at 1243 CC: [id number] DICTATION DATE: 09/26/19 1526 QUALITY ASSURANCE MONITOR: 09/26/19 1656 ADM IN [place] [address] [place] [address]
--- NOTE | 2019-09-27 13:00 | NUR ---
ANESTHESIA AT BEDSIDE. VSS.
--- NOTE | 2019-09-27 15:00 | NUR ---
REASSESSMENT DONE SEE FLOW SHEET
--- NOTE | 2019-09-27 17:00 | NUR ---
IO COLLECTED. MARGARITO LOUIS PROVIDED PT REFUSED.
--- NOTE | 2019-09-27 19:00 | NUR ---
SHIFT ASSESSMENT COMPLETE. VS STABLE. RESPIRATIONS EVEN AND UNLABORED. NO VISUAL CUES OF DISTRESS NOTED. WILL CONTINUE TO MONITOR.
--- NOTE | 2019-09-27 21:00 | NUR ---
VITAL SIGNS STABLE. NO VISUAL CUES OF DISTRESS NOTED. WILL CONTINUE TO MONITOR.
--- NOTE | 2019-09-27 23:00 | NUR ---
VITAL SIGNS STABLE. NO VISUAL CUES OF DISTRESS NOTED. WILL CONTINUE TO MONITOR.
[2019-09-28] VITALS (25 sets, daily range): BP systolic 99–157; BP diastolic 39–110
--- NOTE | 2019-09-28 01:00 | NUR ---
VITAL SIGNS STABLE. NO VISUAL CUES OF DISTRESS NOTED. WILL CONTINUE TO MONITOR.
[2019-09-28 04:11] LABS: BASOPHILS 0 % (0-2); EOSINOPHILS 0 % (0-7); HEMATOCRIT 44.5 % (42.0-54.0); HEMOGLOBIN 14.3 g/dL (13.5-17.5); IMMATURE GRANULOCYTES 0.4 % (0-5); LYMPHOCYTES 5.4 % (15-50); MCHC 32.1 g/dL (31.0-37.0); MCV 93.5 fL (80.0-100.0); MONOCYTES 7.6 % (2-11); NEUTROPHILS 86.6 % (40-80); PLATELET COUNT 208 10x3/uL (130-400); RBC 4.76 10x6/uL (4.20-6.10); RDW 15.8 % (11.5-14.5); WBC 11.3 10x3/uL (4.8-10.8)
[2019-09-28 04:41] LABS: PLT FUNCT.(P2Y12) PLAVIX 214 PRU (194-418)
[2019-09-28 04:54] LABS: ANION GAP 22.2 mmol/L (8-16); CALCIUM 9.3 mg/dL (8.5-10.1); POTASSIUM - SERUM 4.6 mmol/L (3.5-5.1)
[2019-09-28 04:56] LABS: CARBON DIOXIDE 26.4 mmol/L (21.0-32.0)
[2019-09-28 04:57] LABS: PHOSPHOROUS 11.5 mg/dL (2.5-4.9)
--- NOTE | 2019-09-28 07:12 | NUR ---
[facility] OF [facility] 11.5. CALLED DR. STEPHEN AND NO NEW ORDERS
--- NOTE | 2019-09-28 07:20 | NUR ---
UP IN BED AWAKE AT THIS TIME. VSS. NO ACUTE DISTRESS NOTED. PT OPENS EYES, DOES NOT FOLLOW COMMANDS, AND DOES NOT ANSWER QUESTIONS. PT IS NOTED TO SAY "HUH" AT TIMES WHEN SPOKEN TO, STAFF ASKED PT IF HE CAN HEAR THEM OR IF THEY NEED TO SPEAK UP AND PT DID NOT ANSWER. WILL CONTINUE PLAN OF CARE.
--- NOTE | 2019-09-28 08:04 | NUR ---
RECIEVED CALL FROM WOMEN STATING SHE IS PTS DAUGHTER AND WANTS AN UPDATE. NOTED THERE IS NO CALL IN CODE ESTABLISHED AND THE NUMBER CALLING WAS NOT THE NAME OR NUMBER LISTED ON THE EMERGENCY CONTACT LIST. THIS NURSE NOTIFIED CALLER THAN SINCE THERE IS NOT A CALL IN CODE ESTABLISHED THAT THE ONLY THING WE CAN TELL HER IS THAT THE PATIENT IS STABLE, BUT IF SHE OR ANOTHER FAMILY MEMBER WOULD LIKE TO COME UP HERE AND ESTABLISH A CALL-IN CODE THEY WERE WELCOME TO IN ORDER TO BE ABLE TO RECIEVE INFORMATION IN THE FUTURE.
--- NOTE | 2019-09-28 09:36 | NUR ---
PER PTS DAUGHTER, WILL BE HERE AT [address] PETERSON AND WILL UPDATE CALL-IN CODE AND EMERGENCY CONTACT INFORMATION.
--- NOTE | 2019-09-28 11:10 | NUR ---
VSS. NO ACUTE DISTRESS NOTED. WILL CONTINUE PLAN OF CARE.
--- NOTE | 2019-09-28 13:01 | NUR ---
NO ACUTE DISTRESS NOTED. VSS. ORAL CARE PROVIDED Q2H, TURNED Q2H. WILL CONTINUE PLAN FO CARE.
--- NOTE | 2019-09-28 14:00 | NUR ---
AT THIS TIME PT NOTED LESS RESPONSIVE; NOT OPENING EYES WHEN SPOKEN TO AND NO VERBAL RESPONSE. PT IS NOTED TO PUSH AWAY WHEN ATTEMPTING TO REPOSITION AND DOES RESPOND TO DISCOMFORT. DR STEPHEN PAGED TO NOTIFY FOR FURTHER ORDERS. BLOOD GLUCOSE IS 100. TEMP IS 98.7. TOTAL LINEN CHANGE PROVIDED, FORMED BROWN INCONTINENT BOWEL MOVEMENT NOTED. GILMER CARE PROVIDED. VSS. WILL CONTINUE TO CLOSELY OBSERVE.
--- NOTE | 2019-09-28 14:05 | NUR ---
SPOKE WITH PTS SISTER WHO STATED PTS DAUGHTER IS RUNNING LATE BUT IS STILL ON HER WAY HERE TO SEE PT.
--- NOTE | 2019-09-28 14:12 | NUR ---
DR CLARKE WITH [facility] HERE TO SEE PT. ORDERED ABG WITH [facility].
--- NOTE | 2019-09-28 15:25 | NUR ---
PTS FAMILY HAVE NOT ARRIVED HERE YET. CALLED EMERGENCY CONTACY NUMBER TO SEE WHEN FAMILY WILL ARRIVE, NO ANSWER RECIEVED, NO VOICEMAIL NOTED TO LEAVE MESSAGE. WILL ATTEMPT TO CALL FAMILY BACK IN A LITTLE BIT. PT OPENS EYES WHEN SPOKEN TO, DOES NOT ANSWER QUESTIONS, IS MORE ALERT THAN WAS DURING 1400 NOTE. VSS. WILL CONTINUE PLAN OF CARE.
[2019-09-28 15:55] LABS: BASOPHILS 0.1 % (0-2); EOSINOPHILS 0 % (0-7); HEMATOCRIT 42.1 % (42.0-54.0); HEMOGLOBIN 13.7 g/dL (13.5-17.5); IMMATURE GRANULOCYTES 0.5 % (0-5); LYMPHOCYTES 6.3 % (15-50); MCHC 32.5 g/dL (31.0-37.0); MCV 92.3 fL (80.0-100.0); MEAN PLATELET VOLUME 12.2 fL (7.4-10.4); MONOCYTES 10.3 % (2-11); NEUTROPHILS 82.8 % (40-80); PLATELET COUNT 184 10x3/uL (130-400); RBC 4.56 10x6/uL (4.20-6.10); WBC 13.1 10x3/uL (4.8-10.8)
[2019-09-28 16:37] LABS: ALBUMIN 3.3 g/dL (3.4-5.0); ANION GAP 26.9 mmol/L (8-16); BILIRUBIN - TOTAL 0.81 mg/dL (0.2-1.3); CALCIUM 9.5 mg/dL (8.5-10.1); CARBON DIOXIDE 22.2 mmol/L (21.0-32.0); CREATININE - SERUM 9.2 mg/dL (0.6-1.3); POTASSIUM - SERUM 5.1 mmol/L (3.5-5.1); PROTEIN - SERUM 7.3 g/dL (6.4-8.2)
--- NOTE | 2019-09-28 16:46 | NUR ---
NOTED PT HAS REFUSED ALL MEALS AND REFUSED ALL PO MEDS TODAY. ORAL CARE PROVIDED Q2H, PT TURNED Q2H. WHEN ATTEMPTS TO HAVE PT TAKE A DRINK OR A BITE OF FOOD HE CLOSES MOUTH OR IF HE OPENS HIS MOUTH HE DOES NOT SUCK THE STRAW. MULTIPLE ATTEMPTS MADE. PHYSICIANS AWARE. WILL CONTINUE TO OFFER PO FOOD AND DRINKS. VSS. WILL CONTINUE PLAN OF CARE.
--- NOTE | 2019-09-28 17:13 | NUR ---
PTS FAMILY IS HERE, HAVE SPOKEN WITH DR PETERSON. ALL QUESTIONS ANSWERED. VSS. WILL CONTINUE PLAN OF CARE.
--- NOTE | 2019-09-28 19:00 | NUR ---
ASSESSMENT COMPLETE. SEE FLOWSHEET FOR DETAILS. PT LAYING IN BED WITH EYES CLOSED. VSS. RESTRAINTS REMOVED AT THIS TIME. WILL MONITOR CLOSELY. SAFETY MEASURES IN PLACE. CBIR.
--- NOTE | 2019-09-28 20:00 | NUR ---
FAMILY AT BEDSIDE. ALL QUESTIONS ANSWERED. PO MEDS NOT GIVEN. PT SHOOK HEAD "NO" AND CLAMPED MOUTH CLOSED. WILL TRY AGAIN AT A LATER TIME.
--- NOTE | 2019-09-28 20:20 | NUR ---
SON WANTS MD TO CALL PRIOR TO SURGERY. .
--- NOTE | 2019-09-28 21:26 | NUR ---
RESTRAINTS REMAIN OFF AT THIS TIME. NOT PULLING AT MEDICAL EQUIPMENT OR LINES. WILL CONTINUE TO CLOSELY MONITOR.
--- NOTE | 2019-09-28 23:44 | NUR ---
REASSESSMENT COMPLETE. RESTRAINTS REMAIN OFF. PT LAYING IN BED WITH EYES CLOSED. NON VERBAL, YET FOLLOWS COMMANDS AT WILL. REPOSITIONED FOR COMFORT. BED ALARM ON AND CHECKED. PASSING FLATUS. SEE FS FOR FULL ASSESSMENT DETAILS. SAFETY MEASURES IN PLACE.
[2019-09-29] VITALS (18 sets, daily range): BP systolic 77–166; BP diastolic 4–109
--- NOTE | 2019-09-29 01:16 | NUR ---
REPOSITIONED FOR COMFORT. VSS. ORAL CARE PROVIDED. RESTRAINTS REMAIN OFF. OT CONTINUES TO FOLLOW COMMANDS/PROMPTS AT WILL. BED ALARM ON. SAFETY MEASURES IN PLACE. CBIR.
--- NOTE | 2019-09-29 02:44 | NUR ---
REASSESSMENT COMPLETE. SEE FLOWSHEET FOR DETAILS. NO NEW CHANGES NOTED IN PT CONDITION. LAYING IN BED WITH EYES CLOSED SHOWING NO SS OF DISTRESS. VSS. SAFETY MEASURES IN PLACE. CBIR.
[2019-09-29 06:32] LABS: BASOPHILS 0 % (0-2); EOSINOPHILS 0 % (0-7); HEMATOCRIT 42.6 % (42.0-54.0); HEMOGLOBIN 13.9 g/dL (13.5-17.5); IMMATURE GRANULOCYTES 0.3 % (0-5); MCH 29.7 pg (26.0-34.0); MCHC 32.6 g/dL (31.0-37.0); MONOCYTES 14.6 % (2-11); NEUTROPHILS 79.1 % (40-80); PLATELET COUNT 196 10x3/uL (130-400); RBC 4.68 10x6/uL (4.20-6.10); WBC 11.9 10x3/uL (4.8-10.8)
[2019-09-29 06:45] LABS: CALCIUM 9.8 mg/dL (8.5-10.1); CARBON DIOXIDE 20.4 mmol/L (21.0-32.0); CREATININE - SERUM 10.8 mg/dL (0.6-1.3); POTASSIUM - SERUM 5.4 mmol/L (3.5-5.1)
--- NOTE | 2019-09-29 07:26 | NUR ---
PT ARRIVED TO FLOOR FROM [facility]. PT NOT RESPONDING TO QUESTIONS BUT HAS EYES OPEN. OVERNIGHT NURSE REPORTS THIS IS NOT ABNORMAL. BED ALARM ON. CALL LIGHT WITHIN REACH. WILL CONT TO FOLLOW POC
--- NOTE | 2019-09-29 09:19 | NUR ---
DIALYSIS NURSE HERE TO START DIALYSIS
--- NOTE | 2019-09-29 09:56 | NUR ---
PT RECIEVING DIALYSIS AT BEDSIDE. VSS AND WNL. BED ALARM ON. CALL LIGHT WITHIN REACH. WILL CONT TO FOLLOW POC
--- NOTE | 2019-09-29 09:57 | NUR ---
NUTRITION F/U PT NPO FOR SURGERY TODAY. WILL PROVIDE DIET WHEN RESUMED. ASSIST WITH NUTRITION SUPPORT IF NEEDED. RD FOLLOWING
--- NOTE | 2019-09-29 11:04 | NUR ---
DIALYSIS NURSE ASKED PRIMARY NURSE TO COME LOOK AT PT BECAUSE HE WAS "BREATHING WEIRD" UPON ASSESSMENT PT WAS HAVING AGONAL BREATHING AND THEN STOPPED BREATHING, HR DROPPED DOWN TO 40 AND WAS TRENDING DOWN. PRIMARY NURSE YELLED OUT TO SECOND NURSE TO CALL A CODE. PRIMARY NURSE ASKED DIALYSIS NURSE TO GRAB THE CRASH CART. CODE TEAM ARRIVED. SEE CODE SHEET.
[2019-09-29 11:23] LABS: PLT FUNCT.(P2Y12) PLAVIX 174 PRU (194-418)
--- NOTE | 2019-09-29 11:31 | NUR ---
WAQAS KENDALL HERE AND NEW ORDER RECIEVED TO START A LEVOPHEN GTT AND CONSULT DUE TO INTUBATION
--- NOTE | 2019-09-29 12:20 | NUR ---
HERE, NEW ORDER RECIEVED TO OBTAIN EKG NOW. EKG ABNORMAL AND NEW ORDER RECIEVED TO PAGE GABBY KENDALL FOR CARDIAC. GABBY KENDALL PAGED AND LEFT VM TO RETURN CALL. PT PULLING AT LINES AND ETT. NEW ORDER RECIEVED FROM TO PLACE SOFT WRIST RESTRAINTS.
--- NOTE | 2019-09-29 12:23 | NUR ---
PAGED TO UPDATE HIM ON PT SITUATION. PER , NO SURGICAL PROCEDURE WILL BE PERFORMED TODAY.
--- NOTE | 2019-09-29 12:30 | NUR ---
GABBY KENDALL CALLED BACK AND STATES THAT WILL COME SEE THE PT TODAY
[2019-09-29 14:34] LABS: HEMATOCRIT 48.4 % (42.0-54.0); HEMOGLOBIN 15.6 g/dL (13.5-17.5); LYMPHOCYTES 7.4 % (15-50); MCH 29.5 pg (26.0-34.0); MCHC 32.2 g/dL (31.0-37.0); MCV 91.5 fL (80.0-100.0); MEAN PLATELET VOLUME 12.3 fL (7.4-10.4); MONOCYTES 6.7 % (2-11); NEUTROPHILS 85.1 % (40-80); PLATELET COUNT 204 10x3/uL (130-400); RBC 5.29 10x6/uL (4.20-6.10); RDW 16.2 % (11.5-14.5); WBC 14.5 10x3/uL (4.8-10.8)
[2019-09-29 14:35] LABS: BASOPHILS 0 % (0-2); EOSINOPHILS 0.2 % (0-7); IMMATURE GRANULOCYTES 0.6 % (0-5)
[2019-09-29 15:00] LABS: ALBUMIN 3.4 g/dL (3.4-5.0); ANION GAP 32.4 mmol/L (8-16); BILIRUBIN - TOTAL 1.23 mg/dL (0.2-1.3); CARBON DIOXIDE 18.3 mmol/L (21.0-32.0); CREATININE - SERUM 10.3 mg/dL (0.6-1.3); MAGNESIUM - SERUM 3.2 mg/dL (1.8-2.4); POTASSIUM - SERUM 5.7 mmol/L (3.5-5.1); PROTEIN - SERUM 7.7 g/dL (6.4-8.2)
[2019-09-29 15:07] LABS: PHOSPHOROUS 15.9 mg/dL (2.5-4.9); TROPONIN-I 27.398 ng/mL (0.000-0.060)
--- NOTE | 2019-09-29 16:20 | NUR ---
UNABLE TO OBTAIN BP ON PT. ASKED SECOND NURSE TO ASSIST. LEVOPHED RESTARTED AT 5MCG. PAGED AND NEW ORDERS RECIEVED TO GIVE 500ML NS BOLUS AND PAGE CARDIAC. PAGED AND NEW ORDERS RECIEVED TO START DOBUTAMINE GTT, AMIODARONE GTT AND BOLUS, AND GIVE 2 AMP OF CA CHLORIDE. PLACED ORDERS INTO COMPUTER AND STARTING GRABBING SUPPLIES. AT 1425 PT WENT INTO V-FIB. CODE BLUE CALLED. AND TOOK OVER WITH ORDERS AT THIS POINT. SEE CODE SHEET. ENDED CODE AT 1455 AND PRONOUNCED AT 1455.
--- NOTE | 2019-09-29 16:40 | MORECARE ---
CASE MANAGEMENT DISCHARGE SUMMARY PATIENT: JAEL CHEN UNIT: [id number] ADM DATE: 09/24/19 AGE: 68 : 48 SEX: M ROOM/BED: D.2305 AUTHOR: ALVARADO MORRIS PHYSICIAN: REFERRING PHYSICIAN: ROMMEL STEPHEN MD DATE OF SERVICE: 09/29/19 Discharge Plan Patient Name: JAEL CHEN Facility: [facility]:[place] : 1950 Planned Disposition: Anticipated Discharge Date: Discharge Date: Expected LOS: Initial Reviewer: [email or web address] Initial Review Date: 09/25/2019 Generated: 09/29/19 5:40 pm Patient Name: JAEL CHEN Page [id number] at 1640 All edits/amendments must be made on the electronic document DICTATION DATE: 09/29/19 1640 QUARTER TRIMMER: ESDRAS 09/29/19 [facility] RPT#: [id number] DC DATE: STATUS: ADM IN [facility] [address] [place] [address] END OF REPORT
--- NOTE | 2019-09-29 17:01 | MORECARE ---
CASE MANAGEMENT DISCHARGE SUMMARY PATIENT: JAEL CHEN UNIT: [id number] ADM DATE: 09/24/19 AGE: 68 : 48 SEX: M ROOM/BED: D.2305 AUTHOR: ALVARADO MORRIS PHYSICIAN: REFERRING PHYSICIAN: ROMMEL STEPHEN MD DATE OF SERVICE: 09/29/19 Discharge Plan Patient [facility]: [facility] [facility] 1950 Planned Disposition: Anticipated Discharge Date: Discharge Date: Expected LOS: Initial Reviewer: [email or web address] Initial Review Date: 09/25/2019 Generated: 09/29/19 6:01 pm Comments DCP- Discharge Planning Updated by [email or web address]: Jeanette Figueroa on 09/29/19 3:[address] Late Entry 09/27/19 Patient confused unable to get discharge planning assessment completed. No answer on phone number listed in chart. CM will continue to follow and assist as needed with discharge planning / needs. Late Entry 09/28/19 Nursing stated that family is suppose to be here around 1 pm. CM will meet with them when they arrive for discharge planning. 09/28/19 @ 1630 family still hasn't arrived. CM will continue to follow and assist as needed with discharge planning / needs. Last DP export: 09/29/19 3:40 Patient Name: JAEL CHEN Page [phone] at 1701 All edits/amendments must be made on the electronic document DICTATION DATE: 09/29/191700 POCKET CREASER: ESDRAS 09/29/191700 RPT#: [id number] DC DATE: STATUS: ADM IN [facility] [address] [place] [address] END OF REPORT
--- NOTE | 2019-09-29 17:30 | NUR ---
AMPOULE FILLER AND SEALER NOTIFIED AT 1558, LINDER NOTIFIED AT 1600, HOME CALLED AT 1645.
--- NOTE | 2019-09-29 17:52 | NUR ---
HOME HERE TO TAKE PT.
--- NOTE | 2019-10-02 17:02 | OP ---
PATIENT NAME: JAEL CHEN MEDICAL RECORD: [id number] :46 LOCATION:D.[facility] D.2305 ADMISSION DATE:09/24/19 SURGEON: JOON ASENCIO MD DATE OF OPERATION: 09/25/2019 DATE OF SERVICE: 09/25/2019 PROCEDURES: 1. Left heart catheterization. 2. Selective coronary angiography. 3. Left ventriculogram. 4. Vein graft angiography. 5. VARGAS angiography. 6. IFR. INDICATION: Non-Q-wave myocardial infarction and coronary artery disease, CABG, previous multivessel percutaneous transluminal coronary angioplasty stent. PROCEDURE IN DETAIL: After informed consent was obtained and after a detailed description of risks, benefits as well as alternative therapies, the patient elected to proceed with angiogram and heart catheterization. The right femoral area was prepped and draped in normal sterile fashion. Right femoral artery was cannulated via modified Seldinger technique with placement of 6-Malawian sheath. All catheters exchanged through this sheath. FINDINGS: Left ventriculogram was performed in the standard 30-degree KOTHARI view reveals good cardiac wall motion, ejection fraction 50%. SELECTIVE CORONARY ANGIOGRAPHY: 1. Left main is closed. 2. VARGAS to the LAD is widely patent. 3. Vein graft to circumflex is widely patent, previously placed stents appear to be widely patent. There is questionable area of stenosis after the distal stent; however, IFR was normal at 0.91. 4. The right coronary artery has mild irregularities, but no flow-limiting stenosis. OVERALL IMPRESSION: Wide patency of the previously placed stents, wide patency of the left internal mammary artery graft. Continue medical management of the coronary artery disease and cardiac risk factors. TRANSINT:[id number] Voice Confirmation ID: [id number] DOCUMENT ID: [id number] JOON ASENCIO MD at 1702 CC: [id number] DICTATION DATE: 09/25/19 1136 LATHE PULLER: 09/25/19 1151 DIS IN 09/29/19 [place] [id number] [place] [id number]
== END 2019-09-29 17:52 ==
LOC: D.ER 21:43 → D.ICU 23:20 → D.M2 23:20 → D.CVICU 23:20 → D.ICU 09-26 14:39 → D.CVICU 09-28 07:18 → D.ICU 09-29 07:27
PROVIDERS: Anesthesiology; Emergency Medicine; Internal Medicine Interventional Cardiology; Internal Medicine Nephrology; Internal Medicine Pulmonary Disease; Orthopaedic Surgery; ADMIT Internal Medicine Nephrology; ATTEND Internal Medicine Nephrology
PROC: 0BH17EZ Insertion of Endotracheal Airway into Trachea, Via Natural or Artificial Opening (ICD-10-PCS; 2019-09-24)
PROC: 5A1935Z Respiratory Ventilation, Less than 24 Consecutive Hours (ICD-10-PCS; 2019-09-24)
PROC: B2121ZZ Fluoroscopy of Single Coronary Artery Bypass Graft using Low Osmolar Contrast (ICD-10-PCS; 2019-09-25)
PROC: B2181ZZ Fluoroscopy of Left Internal Mammary Bypass Graft using Low Osmolar Contrast (ICD-10-PCS; 2019-09-25)
PROC: B2151ZZ Fluoroscopy of Left Heart using Low Osmolar Contrast (ICD-10-PCS; 2019-09-25)
PROC: 4A023N7 Measurement of Cardiac Sampling and Pressure, Left Heart, Percutaneous Approach (ICD-10-PCS; 2019-09-25)
PROC: 4A033BC Measurement of Arterial Pressure, Coronary, Percutaneous Approach (ICD-10-PCS; 2019-09-25)
PROC: 5A1D70Z Performance of Urinary Filtration, Intermittent, Less than 6 Hours Per Day (ICD-10-PCS; 2019-09-25)
PROC: B2111ZZ Fluoroscopy of Multiple Coronary Arteries using Low Osmolar Contrast (ICD-10-PCS; principal; 2019-09-25 10:30)
DX: I21.4 Non-ST elevation (NSTEMI) myocardial infarction (principal); N18.6 End stage renal disease; S72.002A Fracture of unspecified part of neck of left femur, initial encounter for closed fracture; J96.01 Acute respiratory failure with hypoxia; R40.2214 Coma scale, best verbal response, none, 24 hours or more after hospital admission; R40.2344 Coma scale, best motor response, flexion withdrawal, 24 hours or more after hospital admission; R40.2124 Coma scale, eyes open, to pain, 24 hours or more after hospital admission; I12.0 Hypertensive chronic kidney disease with stage 5 chronic kidney disease or end stage renal disease; F01.51 Vascular dementia, unspecified severity, with behavioral disturbance; I25.10 Atherosclerotic heart disease of native coronary artery without angina pectoris; Z99.2 Dependence on renal dialysis; E87.5 Hyperkalemia; I35.0 Nonrheumatic aortic (valve) stenosis; D63.1 Anemia in chronic kidney disease; E78.5 Hyperlipidemia, unspecified; Z87.891 Personal history of nicotine dependence; W19.XXXA Unspecified fall, initial encounter; R41.0 Disorientation, unspecified; Z91.83 Wandering in diseases classified elsewhere